=== PATIENT | male | born 1955 | race Caucasian/White ===

== ENCOUNTER 2019-06-27 10:05 | Emergency (ER) | payer MEDICARE, SELFPAY ==
[2019-06-27 10:34] VITALS: BMI 27.3
[2019-06-27 10:39] VITALS: BP 158/98; PULSE 100; RESP 20; TEMP 36.8; O2SAT 94
--- NOTE | 2019-06-27 10:41 | XRR_ITS ---
PROCEDURE INFORMATION: Exam: XR Chest, 2 Views Exam date and time: 06/27/2019 11:04 AM Age: 63 years old Clinical indication: Shortness of breath; Additional info: Shortness of breath, copd TECHNIQUE: Imaging protocol: XR of the chest Views: 2 views. COMPARISON: CR Chest 2 views* [id number] 07/09/2018 3:13 PM FINDINGS: Lungs: Multiple calcified granulomas are present in the left lung, as well as the right lower lobe. Chronic obstructive pulmonary disease is present. No focal consolidation or pneumonia is identified. Pleural space: Unremarkable. No pleural effusion. No pneumothorax. Heart/Mediastinum: Unremarkable. No cardiomegaly. Bones/joints: No acute abnormality XR/XR chest 2V* [id number] IMPRESSION: 1. No acute abnormality. 2. Chronic findings as discussed above.
[2019-06-27 11:14] LABS: Hematocrit 54.4 % (42.0-52.0); Hemoglobin 18.4 g/dL (11.7-16.6); Mean Corpuscular HGB Conc 33.8 g/dL (30.0-36.0); Mean Corpuscular Hemoglobin 30.8 pg (28.0-34.0); Mean Platelet Volume 10.9 fL (7.4-10.4); Platelet Count 181 10^3/cmm (130-400); Red Blood Count 5.98 10^6/uL (4.1-5.3); Red Cell Distribution Width 13.2 % (12.1-15.1); White Blood Count 14.3 10^3/uL (4.0-10.0)
[2019-06-27 11:29] LABS: Alanine Aminotransferase 37 U/L (0-41); Alkaline Phosphatase 78 IU/L (40-130); Anion Gap 19.5 (5-19); Aspartate Amino Transferase 16 U/L (0-40); Blood Urea Nitrogen 26 mg/dL (8-23); Calcium 10.2 mg/dL (8.5-10.5); Carbon Dioxide 25 mmol/L (22-29); Chloride 95 mmol/L (98-107); Globulin 2.5 g/dL (1.3-4.6); Glomerular Filtration Rate 67.2 mL/min (90-130); Glucose 223 mg/dL (74-106); Potassium 4.5 mmol/L (3.5-5.1); Sodium 135 mmol/L (136-145); Total Bilirubin 0.5 mg/dL (0.15-1.2); Total Protein 7.5 g/dL (6.6-8.7)
[2019-06-27 11:40] LABS: Absolute Segmented Neutrophil 8.8 10/cmm (1.6-7.1); Band Neutrophils Absolute 1.4 10^3/cmm (0.0-1.2); Lymphocytes 17 %; Monocytes Absolute 1.4 10^3/cmm (0.1-0.6); Platelet Estimate Normal (Normal); Segmented Neutrophils 62 %; Total Cells Counted 100 (0-100)
== END 2019-06-27 14:46 ==
PROVIDERS: Emergency Provider Family Medicine; Family Provider Internal Medicine; PCP Internal Medicine
DX: Z53.21 Procedure and treatment not carried out due to patient leaving prior to being seen by health care provider (principal)
CPT/HCPCS: 36415; 71046; 80053; 85007; 85027; 99281

== ENCOUNTER 2019-07-05 16:13 | Inpatient (IN) | payer MEDICARE, SELFPAY ==
[2019-07-05 16:17] VITALS: BP 133/94; PULSE 173; RESP 20; TEMP 37.1; O2SAT 93; BMI 27.3
--- NOTE | 2019-07-05 16:21 | ED_ITS ---
Entered by Mikki Javier, acting as scribe for Ehsan Penny MD, [facility] [place]PI - Chest Pain General: Chief Complaint: Chest Pain Stated Complaint: SOB Time Seen by Provider: 07/05/19 16:22 Source: patient Mode of arrival: ambulatory Limitations: no limitations History of Present Illness: HPI narrative: 63 yo Male presents to ED with complaint of chest pain. Pt states that about a week ago he was short of breath and wound up at [facility]. Pt states that when he went in he was in atrial fibrillation. Pt states that he doesn't normally have atrial fibrillation. Pt states that when he got out of the hospital he went back out on the road. 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 Pt states the second day he felt like normal. Pt states that he took his medication today and he got short of breath again and is feeling worse than when he went into the hospital the first time. Pt states that he is diabetic and when he was in the hospital before they gave him a lot of steroids and had his blood sugar in the 500s. complaint: chest pain Onset (ago): hour(s) Timing of current episode: episodic and still present Prior episodes: Yes Onset: during exertion Pain radiation: none Relieving factors: nothing Exacerbating factors: exertion Associated symptoms: Reports dyspnea; Deny abdominal pain, fever(s), nausea, palpitations or vomiting Treatment prior to arrival: none Review of Systems General: Reports: 10 or more systems reviewed and unremarkable except in HPI and below Const: Denies: fever, chills or body aches Eyes: Denies: change in vision, blurry vision or blind spots ENMT: Denies: throat pain, enlarged tonsils, painful swallowing, hoarseness, mouth pain or swelling of lips/tongue Card: Reports: chest pain, irregular heart rhythm and shortness of breath on exertion; Denies: palpitations, edema or swelling of feet/ankles Resp: Reports: shortness of breath GI: Denies: abdominal pain, nausea or vomiting : Denies: flank pain, painful urination, urinary frequency, urinary urgency or urinary hesitancy Musc: Denies: neck pain, back pain, extremity pain, extremity swelling or joint pain Skin/Breast: Denies: rash, itching or redness Neuro: Denies: headache, numbness in extremities or weakness in extremities Endo: Denies: excessive urination, excessive thirst or tired all the time PFSH ED PFSH: Statuses (acute, chronic, etc) shown below reflect problem list status as previously entered and may not be historically accurate Social History Smoking and tobacco status: former smoker Alcohol intake: never Substance/Drug Use: never Physical Exam Const: COMMON NORMALS: no apparent distress, average body habitus, oriented x3, no limitations, healthy appearing, alert and well nourished HENMT: COMMON NORMALS: normocephalic, head/scalp atraumatic and moist oral mucous membranes HEAD & SCALP: normocephalic and atraumatic Eye: COMMON NORMALS: PERRL, EOMs intact bilaterally, conjunctivae normal and no scleral icterus CONJUNCTIVA: Yes conjunctivae normal PUPIL: Yes PERRL Neck/C-Spine: COMMON NORMALS: full ROM, supple, no meningeal signs, no JVD and no carotid bruits Chest: COMMONS NORMALS: inspection of chest normal and palpation of chest normal Resp: COMMON NORMALS: normal respiratory effort, no retractions, no use of accessory muscles, clear to auscultation bilaterally and percussion normal AUSCULTATION: clear to auscultation bilaterally PERCUSSION: percussion normal Cardio: COMMON NORMALS: no JVD, S1 normal heart sound, S2 normal heart sound, no gallops, no clicks, no murmurs, no rub and peripheral pulses 2+ throughout RATE: tachycardic RHYTHM: abnormal rhythm irregularly irregular HEART SOUNDS: S1 normal and S2 normal PERIPHERAL PULSES: pulses 2+ throughout GI: COMMON NORMALS: normal to inspection, nondistended, normoactive bowel sounds, soft to palpation, non-tender, no hepatosplenomegaly, no masses and no bruits PALPATION: Yes soft and Yes no hepatosplenomegaly : COMMON NORMALS: Yes no CVA tenderness BLADDER/KIDNEY EXAM: Yes no CVA tenderness Back/Pelvis: COMMON NORMALS: no CVA tenderness Extremity: COMMON NORMALS: normal to inspection, full ROM, normal capillary refill, no calf tenderness and no pedal edema Neuro: COMMON NORMALS: oriented x3 SENSORIUM/ORIENTATION: Yes alert MENINGEAL SIGNS: Yes no meningeal signs Skin: COMMON NORMALS: no rashes or lesions noted, no wounds, skin turgor normal, no jaundice, no petechiae and no mottling GENERAL SKIN EXAM: no rashes or lesions noted and turgor normal Course Consultations: Consultation #1: , hospitalist. She kindly accepted patient to her service. Vital Signs: Vital signs: Vital Signs Temperature 98.7 F 07/05/19 16:17 Pulse Rate 94 07/05/19 19:08 Respiratory Rate 20 H 07/05/19 19:08 Blood Pressure 110/83 07/05/19 19:08 Pulse Oximetry 92 07/05/19 19:08 MDM - Chest Pain MDM Narrative: Medical decision making narrative: 63-year-old gentleman who presented to the emergency department with complaints of chest pain or shortness of breath. When he arrived he was in atrial fibrillation with rapid ventricular rate, heart rate was in the 170s to 180s on arrival and atrial fibrillation on EKG and on the monitor. He initially responded to a bolus of 25 mg of IV diltiazem after which heart rate briefly converted to sinus rhythm and heart rate dropped to between the 90s and low 100s. However this was short-lived and his heart rate gradually increased back into the 140s. He was therefore placed on a diltiazem drip and admitted to the cardiac stepdown unit for further evaluation and management. The patient was recently diagnosed with atrial fibrillation and was placed on metoprolol 50 mg twice daily for this. He is also on Eliquis 5 mg twice daily. Medical Records: Attestation: I reviewed the patient's medical records. Lab Data: Attestation: I reviewed the patient's lab results. Labs: Lab Results 07/05/19 Range/Units 16:27 WBC 14.3 H (4.0-10.0) 10^3/ uL RBC 5.57 H (4.1-5.3) 10^6/u L Hgb 18.1 H (11.7-16.6) g/dL Hct 51.9 (42.0-52.0) % MCV 93.2 (80-94) fL MCH 32.5 (28.0-34.0) pg MCHC 34.9 (30.0-36.0) g/dL RDW 13.1 (12.1-15.1) % Plt Count 212 (130-400) 10^3/c mm MPV 11.8 H (7.4-10.4) fL Neut % (Auto) 59.7 % Lymph % (Auto) 30.9 % Crane % (Auto) 7.3 % Eos % (Auto) 0.8 % Baso % (Auto) 0.3 % Neut # (Auto) 8.6 H (1.8-7.7) 10^3/u L Lymph # (Auto) 4.4 (0.8-4.8) 10^3/u L Crane # (Auto) 1.1 H (0.2-0.9) 10^3/u L Eos # (Auto) 0.1 (0.0-0.8) 10^3/u L Baso # (Auto) 0.0 (0.0-0.1) 10^3/u L Nucleated RBC % (a uto) 0 % Nucleated RBCs # 0.0 /100WBC Imaging Data^: CXR: Radiologist's impression: [place] [id number] XRay Report Signed Patient: Ralph Matta #: [id number] : 4Acc#:[id number] Age/Sex: 63 / MADM Date: 07/05/19 Loc: [facility]/Bed: Attending Dr: Ordering Provider/Ordering MD: Ehsan Penny MD, [facility] Date of Service: 07/05/19 Procedure(s): XR chest 1V portable [id number] Accession Number(s): [id number] Report Number: [id number] PROCEDURE INFORMATION: Exam: XR Chest, 1 View Exam date and time: 07/05/2019 5:06 PM Age: 63 years old Clinical indication: Shortness of breath; Patient HX: HX copd; Additional info: Chest pain and shortness of breath TECHNIQUE: Imaging protocol: XR of the chest Views: 1 view. COMPARISON: CR XR chest 2V* [id number] 06/27/2019 11:00 AM FINDINGS: Lungs: Nonspecific bibasilar consolidation is present, consistent with atelectasis, edema, or pneumonia. The lungs are hyperinflated compatible with COPD. Calcified granulomas are noted. Pleural space: Unremarkable. No pleural effusion. No pneumothorax. Heart/Mediastinum: Unremarkable. No cardiomegaly. Bones/joints: No acute abnormality. XR/XR chest 1V portable [id number] IMPRESSION: Nonspecific bibasilar consolidation is present, consistent with atelectasis, edema, or pneumonia. Dictated By:Ling Velazquez Signed By:Garrett Velazquezigned Date/Time:07/05/191802 DD/ 02 Discharge Plan Discharge Patient Disposition: Admitted As Inpatient Admit Provider: Abigail Goldsmith Clinical Impression: Atrial fibrillation Condition: Stable Interventions: ED Discharge Assessment Last Done: 07/05/19 19:08 Discharge Date/Time: 07/05/19 20:00 Coding Level of Care Code ED Quarry Manager for Chg Fwd Exam Problem Focused The documentation recorded by the Concepcion soares Carmen, accurately reflects the service I personally performed and the decisions made by Hemalatha perkins Adegoke I, MD, [facility] Jul 05, 2019 16:13
--- NOTE | 2019-07-05 16:45 | ECG_ITS ---
Measurements Intervals [place] Rate: 173 P: MT: 0 QRS: 67 QRSD: 93 T: 72 QT: 266 QTc: 452 ATRIAL FIBRILLATION WITH RAPID VENTRICULAR RESPONSE CRITICAL TEST RESULT Compared to ECG 07/09/2017 14:13:08 Sinus rhythm no longer present Incomplete right bundle-branch block no longer present Myocardial infarct finding no longer present Electronically Signed On 07-06-2019 16:20:37 PARTS PULLER by Minal Romero M.D. [id number]
--- NOTE | 2019-07-05 16:45 | XRR_ITS ---
PROCEDURE INFORMATION: Exam: XR Chest, 1 View Exam date and time: 07/05/2019 5:06 PM Age: 63 years old Clinical indication: Shortness of breath; Patient HX: HX copd; Additional info: Chest pain and shortness of breath TECHNIQUE: Imaging protocol: XR of the chest Views: 1 view. COMPARISON: CR XR chest 2V* [id number] 06/27/2019 11:00 AM FINDINGS: Lungs: Nonspecific bibasilar consolidation is present, consistent with atelectasis, edema, or pneumonia. The lungs are hyperinflated compatible with COPD. Calcified granulomas are noted. Pleural space: Unremarkable. No pleural effusion. No pneumothorax. Heart/Mediastinum: Unremarkable. No cardiomegaly. Bones/joints: No acute abnormality. XR/XR chest 1V portable [id number] IMPRESSION: Nonspecific bibasilar consolidation is present, consistent with atelectasis, edema, or pneumonia.
[2019-07-05 17:12] LABS: Basophils % 0.3 %; Eosinophils # 0.1 10^3/uL (0.0-0.8); Eosinophils % 0.8 %; Hematocrit 51.9 % (42.0-52.0); Hemoglobin 18.1 g/dL (11.7-16.6); Lymphocytes # 4.4 10^3/uL (0.8-4.8); Lymphocytes % 30.9 %; Mean Corpuscular HGB Conc 34.9 g/dL (30.0-36.0); Mean Corpuscular Hemoglobin 32.5 pg (28.0-34.0); Mean Corpuscular Volume 93.2 fL (80-94); Mean Platelet Volume 11.8 fL (7.4-10.4); Monocytes # 1.1 10^3/uL (0.2-0.9); Monocytes % 7.3 %; Neutrophils # 8.6 10^3/uL (1.8-7.7); Neutrophils % 59.7 %; Nucleated Red Blood Cells % 0 %; Platelet Count 212 10^3/cmm (130-400); Red Blood Count 5.57 10^6/uL (4.1-5.3); Red Cell Distribution Width 13.1 % (12.1-15.1); White Blood Count 14.3 10^3/uL (4.0-10.0)
[2019-07-05] MEDS: sodium chloride 0.9% 1,000 ML 999 ML IV (17:21)
[2019-07-05 17:26] VITALS: RESP 18
[2019-07-05] MEDS: morphine 4 mg/mL SDV 1 mL IVP (17:26)
--- NOTE | 2019-07-05 18:45 | ECG_ITS ---
Measurements Intervals [place] Rate: 80 P: 80 SD: 134 QRS: 73 QRSD: 95 T: 79 QT: 375 QTc: 435 SINUS RHYTHM WITH OCCASIONAL SUPRAVENTRICULAR PREMATURE COMPLEXES Compared to ECG 07/09/2017 14:13:08 Incomplete right bundle-branch block no longer present Myocardial infarct finding no longer present Electronically Signed On 07-06-2019 16:28:26 PIPE WRAPPING MACHINE OPERATOR by Minal Romero M.D. [id number]
[2019-07-05 18:54] LABS: Add Urine Microscopic? NO
--- NOTE | 2019-07-05 19:05 | P.HP_ITS ---
Providers/Chief Complaint Admitting Physician: Abigail Goldsmith MD Primary Care Provider: Aristides Smith MD Chief Complaint: AFIB W/RVR History of Present Illness Ralph Matta is a 63 year old male with a past medical history of hypertension, diabetes mellitus, COPD who presented to the ED today complaining of shortness of breath. Patient was just recently diagnosed about a week ago with new onset atrial fibrillation. He had gone to [facility] in [place] at the time for evaluation of shortness of breath and intermittent palpitations. There he was diagnosed to have atrial fibrillation and started on metoprolol 50 mg twice a day and also initiated on anticoagulation with Eliquis. He states work-up at the time had included an echocardiogram however he is unaware of the results of the study. He also had a CT of the head.Per history it does not appear like he had any neurological deficits. This was also reportedly normal according to him. He did not undergo any cardioversion. He was feeling asymptomatic since discharge up until yesterday evening when while cleaning his trailer he started to experience shortness of breath. Initially he thought he attributed this to h is known COPD, took some inhalers and did not think much about his symptoms. Then again today afternoon while cleaning his trailer he started to feel winded, said it was hard to catch his breath and felt palpitations. When he presented to the ER his heart rate was noted to be in 180s and A. fib with RVR. He received Cardizem 25 mg IV push which brought him back into sinus rhythm for about 30 minutes however thereafter he again started to go into A. fib with a heart rate between 1 40-1 50 and has now been started on a Cardizem drip. Heart rate now is ranging between 77 to 90 bpm. He has not had his troponin checked since arrival. He denies any complains of overt chest pain to me. He denies any other complaints such as nausea vomiting or diarrhea. His current list of medications include metoprolol 50 mg twice a day, Eliquis 5 mg twice a day, Flomax 0.4 mg daily, Invokana for diabetes control, doxycycline 100 mg twice a day and prednisone 40 mg once daily which was started recently at [facility] for COPD exacerbation, lisinopril 20 mg once daily. He states he has been compliant with all of his medications. 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 Review of labs shows an elevated white blood cell count of 14.3. I suspect this is secondary to steroids. I do not see a Weeks panel from today but from 123 his kidney function was with creatinine of 1.1. Hemoglobin is 18.1. Review of Systems General: Reports: 10 or more systems reviewed and unremarkable except in HPI and below Const: Denies: fever, chills or body aches Eyes: Denies: change in vision, blurry vision or photophobia ENMT: Reports: hoarseness; Denies: throat pain, enlarged tonsils, painful swallowing or nasal congestion Card: Reports: palpitations and shortness of breath on exertion; Denies: chest pain, irregular heart rhythm, edema, swelling of feet/ankles, lightheadedness, pre-syncope or shortness of breath when lying down Resp: Denies: shortness of breath, productive cough, non-productive cough, wheezing, stridor, pain on inspiration, change in phlegm color, coughing up blood or chest congestion GI: Denies: abdominal pain, nausea, vomiting, vomiting blood, coffee grounds in vomit, difficulty swallowing, heartburn/indigestion, diarrhea, constipation, cramping, change in stool character, blood in stool or black tarry stool : Denies: flank pain, painful urination, urinary frequency, urinary urgency, urinary hesitancy or blood in urine Musc: Denies: neck pain, back pain, extremity pain, joint swelling, joint warmth or deformity Neuro: Denies: headache, numbness in extremities, weakness in extremities, changes in sensation, difficulty walking, frequent falls, dizziness, vertigo, behavioral changes, slurred speech or seizure-like activity Psych: Denies: anxiety, depression, suicidal ideation or homicidal ideation Endo: Denies: excessive urination, excessive thirst, tired all the time, cold intolerance or hot flashes Rj/Lymph: Denies: easy bruising or easy bleeding Medications/Allergies Allergies Allergy/AdvReac Type Severity Reaction Status Date / Time No Known Allergies Allergy Verified 06/27/19 10:40 PFSH Acute PFSH: Statuses (acute, chronic, etc) shown below reflect problem list status as previously entered and may not be historically accurate Medical History (Updated 07/05/19 @ 19:15 by Abigail Goldsmith MD) Atrial fibrillation (Acute) COPD (chronic obstructive pulmonary disease) (Acute) Diabetes mellitus (Acute) Hypertension (Acute) Surgical History (Updated 07/05/19 @ 19:16 by Abigail Goldsmith MD) S/P colonoscopic polypectomy (Acute) Social History (Updated 07/05/19 @ 19:16 by Abigail Goldsmith MD) Smoking and tobacco status: former smoker Alcohol intake: never Substance/Drug Use: never Vitals/I&O/Wt Last Vital Signs Temp 98.7 F 07/05/19 16:17 Pulse 173 H 07/05/19 16:17 Resp 18 07/05/19 17:26 BP 133/94 07/05/19 16:17 Pulse Ox 93 07/05/19 16:17 Weight last 48 hrs Weight 83.915 kg Physical Exam Narrative: EXAM NARRATIVE: GEN: Awake, alert and oriented, no acute distress CVS: S1S2 N RS: CTA B/L Abd: Soft, nt , bs+, appears mildly distended however patient states that this is usual for him. Attributes it to a known hernia. DIAMOND MOUNTER: no focal neuro deficits EXT: No pedal edema or cyanosis. Data : 07/05/19 16:27 A&P Assessment and plan (1) Atrial fibrillation: Status: Acute Code(s): I48.91 - Unspecified atrial fibrillation (2) COPD (chronic obstructive pulmonary disease): Status: Acute Code(s): J44.9 - Chronic obstructive pulmonary disease, unspecified (3) Diabetes mellitus: Status: Acute Code(s): E11.9 - Type 2 diabetes mellitus without complications (4) Hypertension: Status: Acute Code(s): I10 - Essential (primary) hypertension Additional A&P Information Admit patient to [facility] Patient received 25 mg of IV push of Cardizem in the ED and has been started on Cardizem infusion. We will continue this for overnight and titrate as needed. Continue metoprolol 50 mg twice a day. We will titrate up on the dose of metoprolol as tolerated by his blood pressure. He is currently on anticoagulation with Eliquis 5 mg twice a day. No signs of bleeding. Hemoglobin is stable. We will continue Eliquis for now. Continue lisinopril for hypertension however I will reduce this dose to 10 mg daily to give me more room to go up on metoprolol. His shortness of breath only was experienced during.'s of rapid heart rate. Since heart rate has settled down between 70-90, he denies any current shortness of breath. Lungs are clear to examination. We do not have an echocardiogram since A. fib has started. He states one was recently performed at [facility] in [place] however we do not have the results of the study. We will try to obtain on Monday. Check troponins which currently remain pending. He does not clinically seem to be experiencing COPD exacerbation therefore I will not continue his steroids or doxycycline for now. Moreover he has completed an adequate course as outpatient. We will use DuoNeb inhalation every 4 hour as needed For diabetes, will use moderate insulin sliding scale for now. He states that recently since discharge and being on prednisone his blood sugar has been running in the 300s. We will check an A1c tomorrow morning DVT prophylaxis: He is currently on prophylaxis with Eliquis which will cover. CODE STATUS is full code Attestations Medical Necessity Statement*: Anticipate greater than 2 midnight admission for control of atrial fibrillation with rapid ventricular response and optimization of medication. Coding Level of Care Code Acute Waiter/Waitress First Class for Kahlil Ny Diagnoses Atrial fibrillation I48.91 COPD (chronic obstructive pulmonary disease) J44.9 Diabetes mellitus E11.9 Hypertension I10
[2019-07-05 19:08] VITALS: BP 110/83; PULSE 94; RESP 20; O2SAT 92
[2019-07-05 19:32] LABS: Bilirubin Urine Neg (NEGATIVE); Blood Urine Neg (Negative); Glucose Urine UA 4+ (Normal); Ketones Urine Negative (Negative); Leukocyte Esterase Urine Negative (Negative); Nitrate Urine Negative (Negative); Protein Urine Neg (Negative); Urine Appearance Clear (CLEAR); Urine Color Straw (Yellow); Urobilinogen Urine Norm (Negative); pH Urine 5 (5-7)
[2019-07-05 19:42] LABS: Amphetamines Screen Urine Negative (Negative); Barbiturates Screen Urine Negative (Negative); Benzodiazepines Screen Urine Negative (Negative); Cocaine Screen Urine Negative (Negative); Opiate Screen Urine Negative (Negative); PCP Screen Urine Negative (Negative); THC Screen Urine Negative (Negative)
[2019-07-05 20:02] LABS: Albumin Level 3.6 g/dL (3.5-5.2); Blood Urea Nitrogen 40 mg/dL (8-23); Calcium 9.1 mg/dL (8.5-10.5); Carbon Dioxide 18 mmol/L (22-29); Chloride 97 mmol/L (98-107); Globulin 2.9 g/dL (1.3-4.6); Glomerular Filtration Rate 67.2 mL/min (90-130); Glucose 470 mg/dL (74-106); NT Pro B Type Natriuretic Pept 668 pg/mL (0-125); Sodium 130 mmol/L (136-145); Total Bilirubin 0.2 mg/dL (0.15-1.2); Total Protein 6.5 g/dL (6.6-8.7)
[2019-07-05 20:03] LABS: Anion Gap 19.7 (5-19)
[2019-07-05 20:06] LABS: Potassium 4.7 mmol/L (3.5-5.1)
[2019-07-05 20:07] LABS: Alkaline Phosphatase 105 IU/L (40-130)
[2019-07-05 20:13] LABS: Alanine Aminotransferase < 5 U/L (0-41); Aspartate Amino Transferase 5 U/L (0-40)
[2019-07-05 20:32] LABS: Troponin(5th) Baseline 16 ng/mL (0-15)
[2019-07-05 20:51] LABS: Glucose Point of Care 355 mg/dL (70-110)
[2019-07-05 21:46] VITALS: O2SAT 94
[2019-07-05 21:57] LABS: Troponin 5 2HR 17.59 ng/mL (0-15); Troponin 5 2HR Delta 1.59 ABS# (0-10)
[2019-07-05 21:59] LABS: Thyroid Stimulating Hormone 1.23 uIU/mL (0.27-4.20)
[2019-07-05 22:18] VITALS: BP 111/78; PULSE 84; RESP 16; TEMP 36.7; O2SAT 91
--- NOTE | 2019-07-05 22:45 | ECG_ITS ---
Measurements Intervals [place] Rate: 78 P: 72 NE: 134 QRS: 37 QRSD: 90 T: 74 QT: 361 QTc: 413 SINUS RHYTHM POSSIBLE LEFT ATRIAL ENLARGEMENT [-0.1mV P WAVE IN V1/V2] Compared to ECG 07/09/2017 14:13:08 Incomplete right bundle-branch block no longer present Myocardial infarct finding no longer present Electronically Signed On 07-06-2019 16:26:20 CRISIS WORKER by Minal Romero M.D. [id number]
--- NOTE | 2019-07-05 22:47 | PC.NURSE ---
Current heart rate is 82 and normal sinus rhythm. Cardizem gtt paused for now. Instructed patient on the use and side effects of cardizem. Patient verbalized complete understanding.
[2019-07-05 23:45] VITALS: BP 103/52; PULSE 79; RESP 19; TEMP 36.9; O2SAT 90
[2019-07-06] VITALS (9 sets, daily range): BP systolic 121–141; BP diastolic 73–86; PULSE 75–110; RESP 16–25; TEMP 36.6–37; O2SAT 89–96
--- NOTE | 2019-07-06 03:14 | PC.NURSE ---
Patient continues to maintain NSR with a rate mid 80s to low 90s. Cardizem gtt remains off at this time.
--- NOTE | 2019-07-06 03:20 | PC.NURSE ---
Patient SpO2 currently at 88-90%. Patient states, I have had COPD for a while now. I do not use oxygen at home. Patient denies any increased work of breathing. No distress observed. Patient refusing to have oxygen at this time stating I don't feel like I need it right now.
[2019-07-06 05:10] LABS: Basophils % 0.3 %; Eosinophils # 0.2 10^3/uL (0.0-0.8); Eosinophils % 1.7 %; Hematocrit 43.2 % (42.0-52.0); Hemoglobin 14.8 g/dL (11.7-16.6); Lymphocytes # 2.7 10^3/uL (0.8-4.8); Lymphocytes % 29.3 %; Mean Corpuscular HGB Conc 34.3 g/dL (30.0-36.0); Mean Corpuscular Hemoglobin 30.6 pg (28.0-34.0); Mean Corpuscular Volume 89.3 fL (80-94); Mean Platelet Volume 11.5 fL (7.4-10.4); Monocytes # 0.7 10^3/uL (0.2-0.9); Neutrophils # 5.7 10^3/uL (1.8-7.7); Neutrophils % 60.6 %; Nucleated Red Blood Cells % 0 %; Platelet Count 149 10^3/cmm (130-400); Red Blood Count 4.84 10^6/uL (4.1-5.3); Red Cell Distribution Width 12.8 % (12.1-15.1); White Blood Count 9.3 10^3/uL (4.0-10.0)
[2019-07-06 05:49] LABS: Anion Gap 18.2 (5-19); Blood Urea Nitrogen 37 mg/dL (8-23); Calcium 8.8 mg/dL (8.5-10.5); Carbon Dioxide 21 mmol/L (22-29); Chloride 97 mmol/L (98-107); Glucose 353 mg/dL (74-106); Osmolality Calculated 286 mOsm/kg (285-295); Potassium 4.2 mmol/L (3.5-5.1); Sodium 132 mmol/L (136-145)
[2019-07-06 05:50] LABS: Cholesterol 273 mg/dL (0-200); HDL Cholesterol 15 mg/dL (60-100)
--- NOTE | 2019-07-06 05:50 | PC.NURSE ---
Patient remains in NSR continuing with rates in the low 80s. Patient denies discomforts at this time. No distress observed. Cardizem gtt remains off at this time.
[2019-07-06 06:02] LABS: Estmated Average Glucose 203; Hemoglobin A1C 8.7 % (4.0-6.0)
[2019-07-06 06:04] LABS: Triglycerides 2121 mg/dL (0-150)
[2019-07-06 06:19] LABS: LDL Cholesterol Direct 34 mg/dL (0-100)
[2019-07-06 07:44] LABS: Glucose Point of Care 334 mg/dL (70-110)
[2019-07-06] MEDS: metoprolol tartrate 50 mg Tablet 75 MG PO ×2 (08:03→18:47)
[2019-07-06] MEDS: apixaban 5 mg Tablet PO ×2 (08:04→18:48)
[2019-07-06] MEDS: lisinopril 10 mg Tablet PO (08:04)
[2019-07-06] MEDS: ipratropium-albuterol 3 mL Neb INHALATION ×3 (09:11→20:34)
--- NOTE | 2019-07-06 09:28 | P.PN_ITS ---
Subjective Subjective: Interval history: Patient converted to sinus rhythm. Cardizem drip was turned off at 10:45 PM overnight. His O2 sats were between 88 to 90%, he refused to wear supplemental O2 as he attributed this to his COPD. This morning his lipid profile has returned grossly abnormal with triglyceride of over 2000 HDL less than 15. Review of medication shows he is not currently on a statin. His A1c also shows poor glycemic control with numbers of 8.7. Leukocytosis is resolved today. Fingersticks remain elevated between 3 53-4 70. Troponins are negative with unremarkable stool in 6-hour delta's. Medications: Reviewed: Yes Vitals/I&O/Wt Last Vital Signs Temp 97.8 F 07/06/19 07:17 Pulse 75 07/06/19 09:12 Resp 16 07/06/19 09:12 BP 141/77 07/06/19 07:17 Pulse Ox 90 07/06/19 09:12 07/05/19 07/06/19 07/06/19 22:59 06:59 14:59 Intake Total 28.417 / 28.417 480 / 508.417 240 / 240 Balance 28.417 / 28.417 480 / 508.417 240 / 240 Weight last 48 hrs Weight 81.148 kg Weight 83.915 kg Physical Exam 2 Narrative: EXAM NARRATIVE: GEN: Awake, alert and oriented, no acute distress CVS: S1S2 N RS: CTA B/L except crackles over RUL Abd: Soft, nt/nd , bs+ REWIND OPERATOR: no focal neuro deficits Data : 07/06/19 04:16 07/06/19 04:16 A&P Assessment and plan (1) COPD (chronic obstructive pulmonary disease): Status: Acute Code(s): J44.9 - Chronic obstructive pulmonary disease, unspecified (2) Atrial fibrillation: Status: Acute Qualifiers: Atrial fibrillation type: unspecified Qualified Code(s): I48.91 - Unspecified atrial fibrillation Code(s): I48.91 - Unspecified atrial fibrillation (3) Diabetes mellitus: Status: Acute Code(s): E11.9 - Type 2 diabetes mellitus without complications (4) Hypertension: Status: Acute Code(s): I10 - Essential (primary) hypertension (5) Hyperlipidemia: Status: Acute Code(s): E78.5 - Hyperlipidemia, unspecified (6) Hypertriglyceridemia: Status: Acute Code(s): E78.1 - Pure hyperglyceridemia Additional A&P Information Continue monitoring in CSU. Cardizem infusion has been off since 10:45 PM overnight. Patient remains in sinus rhythm with heart rate between 75-87. Metoprolol dose has been increased to 75 mg twice a day from 50 mg twice a day. We will continue the same. He is currently on anticoagulation with Eliquis 5 mg twice a day. Continue lisinopril for hypertension. Blood pressure through the day and likely go back up on dose of lisinopril to 20 mg daily if blood pressure permits. Shortness of breath is resolved. BNP is elevated at around 600. Will use 20 mg of IV Lasix. O2 sats is between 88 to 92% however this may be consistent with her known COPD. He does not wear home O2. We will get an home O2 eval prior to discharge. We do not have an echocardiogram since A. fib has started. He states one was recently performed at [facility] in [place] however we do not have the results of the study. Serial troponins are negative and unremarkable Deltas. Lipid panel this a.m. grossly abnormal with triglyceride level greater than 2000. Start high intensity statin Atorvastatin 80mg qd. We will use DuoNeb inhalation every 4 hour as needed for COPD. For diabetes, suboptimal control over the past few months. For now we will change to aggressive sliding scale insulin. DVT prophylaxis: He is currently on prophylaxis with Eliquis which will cover. CODE STATUS is full code Attestations Medical Necessity Statement*: Admitted for management of atrial fibrillation, today is currently controlled. Fingersticks ranging up to 470 noted to be monitored with aggressive scale insulin. Coding Level of Care Code Acute Automotive Fuel Systems Converter for [facility] Fwd Diagnoses COPD (chronic obstructive pulmonary disease) J44.9 Atrial fibrillation I48.91 Atrial fibrillation type: unspecified Diabetes mellitus E11.9 Hypertension I10 Hyperlipidemia E78.5 Hypertriglyceridemia E78.1
--- NOTE | 2019-07-06 09:37 | USCV_ITS ---
Ralph Matta Age: 63 Gender: M : 1955 Exam Date: 07/06/2019 13:51 Ordering Phys: Abigail Goldsmith MD Technologist: Cherelle Paredes [place] [facility] [place]: New onset atrial fibrillation BP: 127 / 80 HR: 82 Rhythm: Sinus Technical Quality: Technically difficult study MEASUREMENTS (Male / Female) Normal Values 2D ECHO LV Diastolic Diameter PLAX 4.9 cm 4.2 - 5.9 / 3.9 - 5.3 cm LV Systolic Diameter PLAX 3.5 cm LV Chamber Size 4.4 cm IVS Diastolic Thickness 0.8 cm 0.6 - 1.0 / 0.6 - 0.9 cm IVS Systolic Thickness 1.2 cm LVPW Diastolic Thickness 1.2 cm 0.6 - 1.0 / 0.6 - 0.9 cm LVPW Systolic Thickness 1.4 cm RV Chamber Size 2.3 cm LVOT Diameter 2.2 cm LV Ejection Fraction 2D Teich 54.8 % LV Ejection Fraction MOD 2C 47.2 % LV Ejection Fraction 2C AL 45.0 % LA Diameter 4.3 cm LA Width 2.8 cm LA Height 3.7 cm RA Width 2.9 cm RA Height 4.1 cm Aorta at Sinotubular Diameter 2.7 cm M-MODE LV Diastolic Diameter MM 5.6 cm 4.2 - 5.9 / 3.9 - 5.3 cm LV Systolic Diameter MM 3.8 cm LV Ejection Fraction MM Teich 59.1 % IVS Diastolic Thickness MM 1.2 cm 0.6 - 1.0 / 0.6 - 0.9 cm IVS Systolic Thickness MM 1.7 cm LVPW Diastolic Thickness MM 1.2 cm 0.6 - 1.0 / 0.6 - 0.9 cm LVPW Systolic Thickness MM 1.9 cm RV Diastolic Diameter MM 0.9 cm Aortic Annulus Diameter 3.3 cm LA Ao Ratio MM 1.3 MV E Point Septal Separation 0.9 cm DOPPLER AV Peak Velocity 113.0 cm/s LVOT Peak Velocity 85.0 cm/s AV Area Cont Eq vti 2.8 cm squared AV Area Cont Eq pk 2.8 cm squared MV Area PHT 5.4 cm squared Mitral E to A Ratio 0.5 MV E' Velocity 6.0 cm/s Mitral E to MV E' Ratio 9.8 Mitral E to LV E' Lateral Ratio 9.3 Mitral E to LV E' Septal Ratio 10.3 TV Peak E Velocity 36.0 cm/s Right Atrial Pressure 3.0 mmHg PV Peak Velocity 63.0 cm/s RV Acceleration Time 0.1 s RV Ejection Time 0.2 s RV AcT/ET 0.4 FINDINGS Left Ventricle Normal left ventricular size and systolic function, EF 55 %. No regional wall motion abnormalities. Grade I/IV diastolic dysfunction (abnormal relaxation filling pattern), normal to mildly elevated filling pressures. Right Ventricle Normal right ventricular size and systolic function. Right Atrium The right atrium is normal in size. Left Atrium The left atrium is normal in size. Mitral Valve No gross abnormalities noted Aortic Valve Thickened aortic valve. Tricuspid Valve No gross abnormalities noted Pulmonic Valve Pulmonic valve not well visualized. Pericardium Normal pericardium without effusion. Aorta Normal ascending aorta dimension. CONCLUSIONS Normal left ventricular size and systolic function, EF 55 %. No regional wall motion abnormalities. Grade I/IV diastolic dysfunction (abnormal relaxation filling pattern), normal to mildly elevated filling pressures. Thickened aortic valve. No significant stenotic or regurgitant lesions Technically difficult study because of the poor ultrasonic window. Dr Minal Romero MD FACC (Electronically Signed) Final Date: 06 July 2019 17:17 SKY
[2019-07-06 12:00] LABS: Glucose Point of Care 332 mg/dL (70-110)
[2019-07-06] MEDS: FUROsemide 10 mg/mL SDV 2mL 20 MG IVP (13:01)
--- NOTE | 2019-07-06 15:21 | PC.CHAP ---
Pastoral Care Encounter/Spiritual Assessment Type of Contact [] Declined fire patroller visit [] Patient/Family/Request visit [] Outpatient visit [] Follow-up visit [] Physician referral [] Code/Alert [x] Routine visit [] Staff referral [] Actively dying [] Patient sleeping [] Family support [] [] Out of room [] Palliative care [] [] Receiving care in room [] Pre-surgical visit [] Trauma [] Long length of stay [] ICU visit [] Other: Relational/Emotional Strength [] Patient feels connected with others/family/visitors/staff [] Distress [] Loneliness/isolation [] Abandonment Spirituality of Patient [x] Person of Mary Kay [] Attends Latter Day of their Mary Kay [] Believes in Prayer [] Reads Bible or Holiness materials [x] There are Spiritual issues to be addressed Pile Fabric Knitter Interventions [] Prayer [] Active listening [] Non-anxious presence [x] Spiritual/emotional support [] Crisis/trauma care [] Spiritual counseling [] Bereavement support [] Provided bereavement packet [] Provided Bible/devotional materials [] Provided toy/stuffed animal, coloring book to patient or family member [] Provided Communion [] Anointing/[place] [] Salvation [] Completed spiritual assessment [] Other: Impact on Illness or Injury [] Angry [x] Fearful [x] Anxious [] Often cries [] Exhaustion [x] Unable to work [] Unable to attend restorationism [] Unable to walk/stand [] Unable to read [] Unable to drive [] Unable to eat/drink [x] Unable to sleep [] Unable to be with family [] Patient intubated [] Other: Summary Time spent with patient
[2019-07-06 17:48] LABS: Magnesium 2.5 mg/dL (1.7-2.3)
[2019-07-06 18:34] LABS: Glucose Point of Care 424 mg/dL (70-110)
[2019-07-06] MEDS: cetirizine 10 mg Tablet PO (19:48)
[2019-07-06 21:39] LABS: Glucose Point of Care 271 mg/dL (70-110)
[2019-07-06] MEDS: trazodone 50 mg Tablet 25 MG PO (21:52)
[2019-07-06] MEDS: atorvastatin 40 mg Tablet 80 MG PO (21:55)
[2019-07-07] VITALS (10 sets, daily range): BP systolic 94–136; BP diastolic 51–96; PULSE 66–94; RESP 16–23; TEMP 36.6–36.8; O2SAT 88–94; BMI 25.9
[2019-07-07 04:12] LABS: Basophils # 0.1 10^3/uL (0.0-0.1); Basophils % 0.4 %; Eosinophils # 0.2 10^3/uL (0.0-0.8); Eosinophils % 1.8 %; Hematocrit 50.9 % (42.0-52.0); Hemoglobin 17.1 g/dL (11.7-16.6); Lymphocytes # 3.3 10^3/uL (0.8-4.8); Lymphocytes % 25.6 %; Mean Corpuscular HGB Conc 33.6 g/dL (30.0-36.0); Mean Corpuscular Hemoglobin 30.8 pg (28.0-34.0); Mean Corpuscular Volume 91.5 fL (80-94); Mean Platelet Volume 11.5 fL (7.4-10.4); Monocytes # 1.1 10^3/uL (0.2-0.9); Monocytes % 8.2 %; Neutrophils # 8.1 10^3/uL (1.8-7.7); Neutrophils % 62.5 %; Nucleated Red Blood Cells % 0 %; Platelet Count 175 10^3/cmm (130-400); Red Blood Count 5.56 10^6/uL (4.1-5.3); Red Cell Distribution Width 12.9 % (12.1-15.1)
[2019-07-07 04:15] LABS: Alanine Aminotransferase 28 U/L (0-41); Albumin Level 3.7 g/dL (3.5-5.2); Alkaline Phosphatase 64 IU/L (40-130); Anion Gap 18.1 (5-19); Aspartate Amino Transferase 13 U/L (0-40); Blood Urea Nitrogen 33 mg/dL (8-23); Calcium 9.5 mg/dL (8.5-10.5); Carbon Dioxide 23 mmol/L (22-29); Chloride 98 mmol/L (98-107); Globulin 3.4 g/dL (1.3-4.6); Glomerular Filtration Rate 67.2 mL/min (90-130); Glucose 193 mg/dL (74-106); Potassium 4.1 mmol/L (3.5-5.1); Sodium 135 mmol/L (136-145); Total Bilirubin 0.5 mg/dL (0.15-1.2); Total Protein 7.1 g/dL (6.6-8.7)
[2019-07-07 08:01] LABS: Glucose Point of Care 224 mg/dL (70-110)
[2019-07-07] MEDS: metoprolol tartrate 50 mg Tablet 75 MG PO ×2 (08:49→17:38)
[2019-07-07] MEDS: apixaban 5 mg Tablet PO ×2 (08:49→17:38)
[2019-07-07] MEDS: lisinopril 10 mg Tablet PO (08:49)
[2019-07-07] MEDS: cetirizine 10 mg Tablet PO (08:49)
[2019-07-07 10:49] LABS: Glucose Point of Care 221 mg/dL (70-110)
--- NOTE | 2019-07-07 12:06 | PC.CHAP ---
Pastoral Care Encounter/Spiritual Assessment Type of Contact [] Declined vehicle leasing and rental manager visit [] Patient/Family/Request visit [] Outpatient visit [] Follow-up visit [] Physician referral [] Code/Alert [x] Routine visit [] Staff referral [] Actively dying [] Patient sleeping [] Family support [] [] Out of room [] Palliative care [] [] Receiving care in room [] Pre-surgical visit [] Trauma [] Long length of stay [] ICU visit [] Other: Relational/Emotional Strength [] Patient feels connected with others/family/visitors/staff [] Distress [] Loneliness/isolation [] Abandonment Spirituality of Patient [] Person of Mary Kay [] Attends Evangelical of their Mary Kay [x] Believes in Prayer [] Reads Bible or Jehovah'S Witness materials [] There are Spiritual issues to be addressed Cabinetmaker Helper Interventions [x] Prayer [x] Active listening [x] Non-anxious presence [x] Spiritual/emotional support [] Crisis/trauma care [] Spiritual counseling [] Bereavement support [] Provided bereavement packet [] Provided Bible/devotional materials [] Provided toy/stuffed animal, coloring book to patient or family member [] Provided Communion [] Anointing/[place] [] Salvation [x] Completed spiritual assessment [] Other: Impact on Illness or Injury [] Angry [] Fearful [] Anxious [] Often cries [] Exhaustion [] Unable to work [] Unable to attend cheondoism [] Unable to walk/stand [] Unable to read [] Unable to drive [] Unable to eat/drink [] Unable to sleep [] Unable to be with family [] Patient intubated [] Other: Summary pt. said he was ready to go home, he was hungry. Time spent with patient 10 min.
[2019-07-07 15:48] LABS: Glucose Point of Care 253 mg/dL (70-110)
--- NOTE | 2019-07-07 18:33 | P.PN_ITS ---
Subjective Subjective: Interval history: Patient reports getting out of breath with minimal activity. He is currently in normal sinus rhythm but tachycardic with heart rate in the 100s to 110s. He denies chest pain Even with exertion. He reports recently having stress test without significant findings. He reportsAt times rattling cough but unable to bring it up. Reports that cough started a pproximately one week ago when he was at [facility] for another episode of atrial fibrillation. He was started that timeOn Eliquis. He also was started on Trilogy machine with increasing respiratory medications.He denies lower extremity swelling. His x-ray Showed bibasal infiltrates suggestive of p neumonia. Medications: Reviewed: Yes Vitals/I&O/Wt Last Vital Signs Temp 98.2 F 07/07/19 16:00 Pulse 92 07/07/19 16:00 Resp 16 07/07/19 16:00 BP 105/81 07/07/19 16:00 Pulse Ox 91 07/07/19 16:00 07/07/19 07/07/19 07/07/19 06:59 14:59 22:59 Intake Total 400 / 1120 360 / 360 240 / 600 Output Total 200 / 200 Balance 400 / 1120 360 / 360 40 / 400 Weight last 48 hrs Weight 79.605 kg Weight 81.148 kg Physical Exam Const: COMMON NORMALS: oriented x3 Resp: OTHER: Minimal bibasilar rhonchi with overall decreased air movement but no wheezing. Cardio: COMMON NORMALS: regular rate, regular rhythm and S2 normal heart sound RATE: regular rate RHYTHM: regular rhythm HEART SOUNDS: S2 normal OTHER: No lower extremity edema bilaterally. GI: COMMON NORMALS: normal to inspection, nondistended, normoactive bowel sounds, soft to palpation and non-tender PALPATION: Yes soft Neuro: COMMON NORMALS: oriented x3 and no focal motor deficits Data : 07/07/19 03:20 07/07/19 03:20 A&P Assessment and plan (1) COPD (chronic obstructive pulmonary disease): Currently not in exacerbation. Status: Acute Code(s): J44.9 - Chronic obstructive pulmonary disease, unspecified (2) Atrial fibrillation: Converted back to normal sinus rhythm. Status: Acute Qualifiers: Atrial fibrillation type: unspecified Qualified Code(s): I48.91 - Unspecified atrial fibrillation Code(s): I48.91 - Unspecified atrial fibrillation (3) Diabetes mellitus: Patient does not want to initiate insulin. He is currently on Invokana at home Status: Acute Code(s): E11.9 - Type 2 diabetes mellitus without complications (4) Hypertension: Status: Acute Code(s): I10 - Essential (primary) hypertension (5) Hyperlipidemia: Status: Acute Code(s): E78.5 - Hyperlipidemia, unspecified (6) Hypertriglyceridemia: Status: Acute Code(s): E78.1 - Pure hyperglyceridemia Additional A&P Information Continue monitoring in CSU. I will go ahead and change patient's metoprolol to Cardizem given his severe underlying lung disease. Patient reports that at times he wheezes at night. Shortness of breath is resolved. BNP is elevated at around 600. Will use 20 mg of IV Lasix. O2 sats is between 88 to 92% however this may be consistent with her known COPD. He does not wear home O2. We will get an home O2 eval prior to discharge. We do not have an echocardiogram since A. fib has started. He states one was recently performed at [facility] in [place] however we do not have the results of the study. Serial troponins are negative and unremarkable Deltas. Lipid panel this a.m. grossly abnormal with triglyceride level greater than 2000. Start high intensity statin Atorvastatin 80mg qd. We will use DuoNeb inhalation every 4 hour as needed for COPD. For diabetes, suboptimal control over the past few months. For now we will change to aggressive sliding scale insulin. Insomnia. Start patient on trazodone as patient reports that it worked yesterday and he was able to sleep 2-3 hours. Left T2-T3 level paravertebral soft tissue mass. Recently was evaluated at [facility] with MRI as per patient. Acute bronchitis with Bibasilar community-acquired pneumonia. Most likely present on admission. Start patient on Levaquin. DVT prophylaxis: He is currently on prophylaxis with Eliquis which will cover. CODE STATUS is full code Attestations Medical Necessity Statement*: Patient was atrial fibrillation rapid ventricular response requires close inpatient monitoring and treatment until medications are appropriately adjusted. Time Spent in Patient Care: Greater than 35 minutes Coding Level of Care Code Acute Writing Center Director for [facility] Fwd Diagnoses COPD (chronic obstructive pulmonary disease) J44.9 Atrial fibrillation I48.91 Atrial fibrillation type: unspecified Diabetes mellitus E11.9 Hypertension I10 Hyperlipidemia E78.5 Hypertriglyceridemia E78.1
[2019-07-07] MEDS: ipratropium-albuterol 3 mL Neb INHALATION (20:32)
[2019-07-07 21:00] LABS: Glucose Point of Care 320 mg/dL (70-110)
[2019-07-07] MEDS: atorvastatin 40 mg Tablet 80 MG PO (21:02)
[2019-07-07] MEDS: trazodone 50 mg Tablet PO (21:02)
[2019-07-07] MEDS: dilTIAZem 60 mg Tablet PO (21:02)
[2019-07-07] MEDS: levofloxacin-dextrose 5 % 750 MG/150 ML PREMIX 150 MG IV (21:06)
[2019-07-07] MEDS: acetaminophen 325 mg Tablet 650 MG PO (21:06)
--- NOTE | 2019-07-07 21:17 | PC.NURSE ---
New IV stated on left wrist with 20 gauge on first attempt. Patient tolerated well. Dressing applied.
[2019-07-08] VITALS (11 sets, daily range): BP systolic 99–126; BP diastolic 59–90; PULSE 68–160; RESP 17–21; TEMP 36.7–36.9; O2SAT 87–95
[2019-07-08] MEDS: dilTIAZem 60 mg Tablet PO ×4 (03:18→21:02)
[2019-07-08 07:04] LABS: Glucose Point of Care 257 mg/dL (70-110)
[2019-07-08] MEDS: lisinopril 10 mg Tablet PO (08:02)
[2019-07-08] MEDS: apixaban 5 mg Tablet PO ×2 (08:02→17:37)
[2019-07-08] MEDS: cetirizine 10 mg Tablet PO (08:02)
--- NOTE | 2019-07-08 08:10 | PC.NURSE ---
reinforcement on diet Pt stated he had a roast beef sandwich last night. did not eat the bread per report. He was telling me he is excited to go home to eat real food. I asked him what kind of food? He told me that his friend is making sausages. Educated him regarding his uncontrolled blood sugar level. He told me, that is going to be tough. Educated him on the complications of diabetes and importance of watchful diet.
--- NOTE | 2019-07-08 08:16 | PC.NURSE ---
Pt reported he had a Hx of Hep C and was taking a pill for it.
[2019-07-08 11:05] LABS: Glucose Point of Care 278 mg/dL (70-110)
--- NOTE | 2019-07-08 12:27 | PC.SOCIAL ---
Pg 2 of IMM Pg 2 of IMM was explained to and signed by patient, copy was provided, and form placed in chart. He verbalized understanding and had no questions.
--- NOTE | 2019-07-08 13:02 | PC.NURSE ---
Ambulating down hallways HR on tele box shows SR/ST rate in 90s to 98s.
[2019-07-08] MEDS: ipratropium-albuterol 3 mL Neb INHALATION ×2 (14:47→20:03)
--- NOTE | 2019-07-08 14:57 | ECG_ITS ---
Measurements Intervals [place] Rate: 106 P: 79 DC: 133 QRS: 66 QRSD: 102 T: 67 QT: 348 QTc: 462 SINUS TACHYCARDIA WITH FREQUENT SUPRAVENTRICULAR PREMATURE COMPLEXES POSSIBLE LEFT ATRIAL ENLARGEMENT [-0.1mV P WAVE IN V1/V2] POSSIBLE ANTERIOR MYOCARDIAL INFARCTION [30 ms Q WAVE IN V3/V4, OR R < 0.2 mV IN V4], OF INDETERMINATE AGE Compared to ECG 07/05/2019 22:49:06 Myocardial infarct finding now present Sinus rhythm no longer present Electronically Signed On 07-08-2019 21:02:32 BROKERAGE CLERK by Minal Romero M.D. [email or web address]
[2019-07-08 15:32] LABS: Basophils # 0.1 10^3/uL (0.0-0.1); Basophils % 0.4 %; Eosinophils # 0.2 10^3/uL (0.0-0.8); Eosinophils % 1.2 %; Hematocrit 54.6 % (42.0-52.0); Hemoglobin 18.1 g/dL (11.7-16.6); Lymphocytes # 3.8 10^3/uL (0.8-4.8); Lymphocytes % 24.9 %; Mean Corpuscular HGB Conc 33.2 g/dL (30.0-36.0); Mean Corpuscular Volume 93.7 fL (80-94); Mean Platelet Volume 11.4 fL (7.4-10.4); Monocytes # 1.4 10^3/uL (0.2-0.9); Monocytes % 8.9 %; Neutrophils # 9.6 10^3/uL (1.8-7.7); Neutrophils % 63.2 %; Nucleated Red Blood Cells % 0 %; Platelet Count 194 10^3/cmm (130-400); Red Blood Count 5.83 10^6/uL (4.1-5.3); Red Cell Distribution Width 13.2 % (12.1-15.1); White Blood Count 15.2 10^3/uL (4.0-10.0)
[2019-07-08 15:50] LABS: Alanine Aminotransferase 27 U/L (0-41); Albumin Level 4.2 g/dL (3.5-5.2); Alkaline Phosphatase 82 IU/L (40-130); Anion Gap 17.6 (5-19); Aspartate Amino Transferase 16 U/L (0-40); Blood Urea Nitrogen 38 mg/dL (8-23); Carbon Dioxide 20 mmol/L (22-29); Chloride 96 mmol/L (98-107); Globulin 3.4 g/dL (1.3-4.6); Glomerular Filtration Rate 55.4 mL/min (90-130); Glucose 294 mg/dL (74-106); Potassium 4.6 mmol/L (3.5-5.1); Sodium 129 mmol/L (136-145); Total Bilirubin 0.4 mg/dL (0.15-1.2); Total Protein 7.6 g/dL (6.6-8.7)
--- NOTE | 2019-07-08 16:28 | PM.PN ---
Subjective Subjective: Interval history: Patient reports feeling better whole day. Reports that he was in the bathroom straining when his heart rate increased up in 150s and gradually improved. Denies diarrhea. He wants to go home but agreed to stay overnight for further monitoring and treatment. White blood cell count increased to 15.2 Apparently patient did not mean to say trilogy machine and meant to say Trelegy inhaler. Medications: Reviewed: Yes Vitals/I&O/Wt Last Vital Signs Temp 98.0 F 07/08/19 15:12 Pulse 96 07/08/19 15:12 Resp 17 07/08/19 15:12 BP 126/90 07/08/19 15:12 Pulse Ox 91 07/08/19 15:12 07/08/19 07/08/19 07/08/19 06:59 14:59 22:59 Intake Total 300 / 1286 472 / 472 Balance 300 / 1086 472 / 472 Weight last 48 hrs Weight 80.195 kg Weight 79.605 kg Physical Exam Const: COMMON NORMALS: oriented x3 Resp: OTHER: Minimal bibasilar rhonchi with overall decreased air movement but no wheezing. Cardio: COMMON NORMALS: regular rate, regular rhythm and S2 normal heart sound RATE: regular rate RHYTHM: regular rhythm HEART SOUNDS: S2 normal OTHER: No lower extremity edema bilaterally. GI: COMMON NORMALS: normal to inspection, nondistended, normoactive bowel sounds, soft to palpation and non-tender PALPATION: Yes soft Neuro: COMMON NORMALS: oriented x3 and no focal motor deficits Data : 07/08/19 15:17 07/08/19 15:17 A&P Assessment and plan (1) COPD (chronic obstructive pulmonary disease): Currently not in exacerbation. Status: Acute Code(s): J44.9 - Chronic obstructive pulmonary disease, unspecified (2) Atrial fibrillation: Converted back to normal sinus rhythm. Status: Acute Qualifiers: Atrial fibrillation type: unspecified Qualified Code(s): I48.91 - Unspecified atrial fibrillation Code(s): I48.91 - Unspecified atrial fibrillation (3) Diabetes mellitus: Patient does not want to initiate insulin. He is currently on Invokana at home Status: Acute Code(s): E11.9 - Type 2 diabetes mellitus without complications (4) Hypertension: Status: Acute Code(s): I10 - Essential (primary) hypertension (5) Hyperlipidemia: Status: Acute Code(s): E78.5 - Hyperlipidemia, unspecified (6) Hypertriglyceridemia: Status: Acute Code(s): E78.1 - Pure hyperglyceridemia Additional A&P Information Continue monitoring in CSU. Continue current monitoring and treatment and medication adjustment as needed. Will request 2 view chest x-ray for further evaluation. Continue antibiotic for now. Shortness of breath is resolved. BNP is elevated at around 600. Will use 20 mg of IV Lasix. O2 sats is between 88 to 92% however this may be consistent with her known COPD. He does not wear home O2. We will get an home O2 eval prior to discharge. We do not have an echocardiogram since A. fib has started. He states one was recently performed at [facility] in [place] however we do not have the results of the study. Serial troponins are negative and unremarkable Deltas. Lipid panel this a.m. grossly abnormal with triglyceride level greater than 2000. Start high intensity statin Atorvastatin 80mg qd. We will use DuoNeb inhalation every 4 hour as needed for COPD. For diabetes, suboptimal control over the past few months. For now we will change to aggressive sliding scale insulin. Insomnia. Start patient on trazodone as patient reports that it worked yesterday and he was able to sleep 2-3 hours. Left T2-T3 level paravertebral soft tissue mass. Recently was evaluated at [facility] with MRI as per patient. Acute bronchitis with Bibasilar community-acquired pneumonia. Most likely present on admission. Start patient on Levaquin. DVT prophylaxis: He is currently on prophylaxis with Eliquis which will cover. CODE STATUS is full code Attestations Medical Necessity Statement*: Patient with atrial fibrillation and rapid ventricle response as well as pneumonia requires close inpatient monitoring and treatment will deemed safe for discharge Time Spent in Patient Care: 16 - 35 minutes Coding Level of Care Code Acute Payroll Accounting Specialist for g Fwd Diagnoses COPD (chronic obstructive pulmonary disease) J44.9 Atrial fibrillation I48.91 Atrial fibrillation type: unspecified Diabetes mellitus E11.9 Hypertension I10 Hyperlipidemia E78.5 Hypertriglyceridemia E78.1
--- NOTE | 2019-07-08 16:30 | XR_ITS ---
WS: [id number] Chest 2 views, 07/08/2019 Clinical Data: Pneumonia Comparison: Portable chest, 07/05/2019 Findings: No nodules, masses or effusions are seen. The heart is normal. The pulmonary vascularity is not increased. No pneumonia or pneumothorax is seen. The bibasilar consolidation has cleared. The di aphragms are flattened. There are monitor leads on the chest wall. There is a slight levoscoliosis of the thoracic spine. Monitor leads are on the chest wall. XR/XR chest 2V insp/exp [id number] Impression: Atherosclerosis and hyperinflation.
--- NOTE | 2019-07-08 16:40 | ECG_ITS ---
Measurements Intervals [place] Rate: 91 P: 81 IL: 136 QRS: 63 QRSD: 94 T: 64 QT: 323 QTc: 398 SINUS RHYTHM POSSIBLE LEFT ATRIAL ENLARGEMENT [-0.1mV P WAVE IN V1/V2] Compared to ECG 07/05/2019 22:49:06 No significant changes Electronically Signed On 07-08-2019 21:02:55 PEOPLESOFT FINANCIALS CONSULTANT by Minal Romero M.D. [id number]
[2019-07-08 17:02] LABS: Glucose Point of Care 309 mg/dL (70-110)
[2019-07-08] MEDS: HYDROcodone-acetaminophen 5-325 mg Tablet 1 TAB PO (17:32)
[2019-07-08] MEDS: metoprolol tartrate 25 mg Tablet 12.5 MG PO (17:34)
[2019-07-08] MEDS: metoprolol tartrate 25 mg Tablet PO (17:35)
--- NOTE | 2019-07-08 20:27 | PM.CONSULT ---
Providers/Reason For Consult Consulting Physican/Specialty*: Cardiology Reason for Consult*: Atrial fibrillation with rapid ventricular response Attending Physician: Calvin Caldwell MD Primary Care Provider: Aristides Smith MD History of Present Illness History of Present Illness Ralph Matta is a 63 year old male Past medical history significant for COPD, recent onset of atrial fibrillation on anticoagulation, hypertension, hyperlipidemia, history of tobacco abuse quit 7 years ago, history of alcohol and drug abuse quit many years ago was admitted with COPD exacerbation and atrial fibrillation with rapid ventricular response. Patient was recently discharged from [facility]. He was admitted there with new onset of A. fib. He was started on Metoprolol.He converted back into sinus rhythm and was discharged however within 48 hours while cleaning his truck patient went back into rapid heart rate started feeling shortness of breath and chest pressure therefore came to ER. Dr. Caldwell added Cardizem Which converted back to him sinus rhythm. He was about to discharge again today while straining in the washroom due to constipation he slipped back into A. fib with heart rate into 170s. When I saw the patient he was sitting not in distress and heart rate in the 70s again. Underlying rhythm is sinus. Byphysical examination he appeared to be elevated dehydrated.He otherwise denies PND orthopnea. According to the patient he had stress test in 2015 which was negative. I have not seen any echocardiogram so far. Review of Systems General: Reports: 10 or more systems reviewed and unremarkable except in HPI and below Const: Denies: fever, chills or body aches Eyes: Denies: change in vision, blurry vision, blind spots or photophobia ENMT: Reports: hoarseness; Denies: throat pain, enlarged tonsils, painful swallowing, mouth pain, swelling of lips/tongue or nasal congestion Card: Reports: palpitations and shortness of breath on exertion; Denies: chest pain, irregular heart rhythm, edema, swelling of feet/ankles, lightheadedness, pre-syncope or shortness of breath when lying down Resp: Denies: shortness of breath, productive cough, non-productive cough, wheezing, stridor, pain on inspiration, change in phlegm color, coughing up blood or chest congestion GI: Denies: abdominal pain, nausea, vomiting, vomiting blood, coffee grounds in vomit, difficulty swallowing, heartburn/indigestion, diarrhea, constipation, cramping, change in stool character, blood in stool or black tarry stool : Denies: flank pain, painful urination, urinary frequency, urinary urgency, urinary hesitancy or blood in urine Musc: Denies: neck pain, back pain, extremity pain, extremity swelling, joint pain, joint swelling, joint warmth or deformity Skin/Breast: Denies: rash, itching or redness Neuro: Denies: headache, numbness in extremities, weakness in extremities, changes in sensation, difficulty walking, frequent falls, dizziness, vertigo, behavioral changes, slurred speech or seizure-like activity Psych: Denies: anxiety, depression, suicidal ideation or homicidal ideation Endo: Denies: excessive urination, excessive thirst, tired all the time, cold intolerance or hot flashes Rj/Lymph: Denies: easy bruising or easy bleeding Meds/Allergies Home Medications and Allergies Home Medications Medication Instructions Recorded Confirmed Type apixaban [Eliquis] 5 mg PO BID 07/05/19 07/05/19 History canagliflozin [Invokana] 300 mg PO DAILY 07/05/19 07/05/19 History doxycycline hyclate 100 mg PO BID 07/05/19 07/05/19 History qmhkxesfrvb-vlogyqhkt-kugttvli 1 inh INHALATION DAILY 07/05/19 07/05/19 History [Trelegy Ellipta] lisinopril 20 mg PO DAILY 07/05/19 07/05/19 History loratadine 10 mg PO DAILY PRN 07/05/19 07/05/19 History metoprolol tartrate 50 mg PO BID 07/05/19 07/05/19 History prednisone 40 mg PO DAILY 07/05/19 07/05/19 History tamsulosin 0.4 mg PO BEDTIME 07/05/19 07/05/19 History Allergies Allergy/AdvReac Type Severity Reaction Status Date / Time No Known Allergies Allergy Verified 06/27/19 10:40 Current Medications Current Medications Generic Name Dose Route Start Last Admin Trade Name Freq PRN Reason Stop Dose Admin Acetaminophen 650 mg 07/05/19 20:36 07/07/19 21:06 Tylenol PO 650 mg Q6H PRN Administration Mild/Mod Pain Or Temp >/= 101 Hydrocodone Bitart/Acetaminophen 1 tab 07/08/19 17:20 07/08/19 17:32 Miranda 5-325 Mg PO 1 tab Q6H PRN Administration MODERATE PAIN Albuterol/Ipratropium 3 ml 07/06/19 03:00 07/08/19 20:03 Duoneb INHALATION 3 ml Q6H.RESPIRATORY ALYSSA Administration Apixaban 5 mg 07/06/19 09:00 07/08/19 17:37 Eliquis PO 5 mg BID ALYSSA Administration Atorvastatin Calcium 80 mg 07/06/19 21:00 07/07/19 21:02 Lipitor PO 80 mg BEDTIME ALYSSA Administration Cetirizine HCl 10 mg 07/06/19 19:20 07/08/19 08:02 Zyrtec PO 10 mg DAILY ALYSSA Administration Diltiazem HCl 60 mg 07/07/19 19:00 07/08/19 15:00 Cardizem PO 60 mg Q6H ALYSSA Administration Levofloxacin/Dextrose 750 mg in 150 mls @ 150 mls/hr 07/07/19 18:45 07/07/19 22:15 Levaquin-D5w IV Infused Q24H ALYSSA Infusion Protocol Insulin Aspart 0 unit 07/06/19 12:00 07/08/19 17:37 Novolog SUBCUT 14 unit WM&BEDTIME ALYSSA Administration Protocol Lisinopril 10 mg 07/06/19 09:00 07/08/19 08:02 Prinivil PO 10 mg DAILY ALYSSA Administration Metoprolol Tartrate 25 mg 07/08/19 18:00 07/08/19 17:35 Lopressor PO 25 mg BID ALYSSA Administration Trazodone HCl 50 mg 07/07/19 18:34 07/07/19 21:02 Desyrel PO 50 mg BEDTIME PRN Administration INSOMNIA PFSH Acute PFSH: Statuses (acute, chronic, etc) shown below reflect problem list status as previously entered and may not be historically accurate Medical History Atrial fibrillation (Acute) COPD (chronic obstructive pulmonary disease) (Acute) Diabetes mellitus (Acute) Hyperlipidemia (Acute) Hypertension (Acute) Hypertriglyceridemia (Acute) Surgical History S/P colonoscopic polypectomy (Acute) Social History Smoking and tobacco status: former smoker Alcohol intake: never Substance/Drug Use: never Vitals/I&O/Wt Last Vital Signs Temp 98.1 F 07/08/19 19:22 Pulse 70 07/08/19 20:06 Resp 18 07/08/19 20:03 BP 114/75 07/08/19 19:22 Pulse Ox 95 07/08/19 20:03 07/08/19 07/08/19 07/08/19 06:59 14:59 22:59 Intake Total 300 / 1286 472 / 472 480 / 952 Balance 300 / 1086 472 / 472 480 / 952 Weight last 48 hrs Weight 176 lb 12.8 oz Weight 175 lb 8 oz Physical Exam Narrative: EXAM NARRATIVE: GENERAL: Patient is alert, awake and oriented x3. NECK: No jugular vein distension. HEENT: No cyanosis. No icterus. No pallor. HEART: Regular S1 and S2. No murmur, rub or gallop. LUNGS: Decrease breath bilaterally. ABDOMEN: Soft, nontender and nondistended. Positive bowel sounds. No guarding, rebound or tenderness. CENTRAL NERVOUS SYSTEM: Grossly nonfocal. EXTREMITIES: Lower extremities without edema bilaterally. A&P Assessment and plan (1) Atrial fibrillation: Currently patient is in sinus rhythm . We will continue Cardizem at current dose of 60 4 times a day and metoprolol 25 twice a day. Continue anticoagulation. I will also give him IV fluid tonight for hydration. We will obtain echocardiogram in the morning to assess LV function and any valvular abnormality at the same time to gauge atrial size. We also recommend switching him to levalbuterol. Status: Acute Qualifiers: Atrial fibrillation type: unspecified Qualified Code(s): I48.91 - Unspecified atrial fibrillation Code(s): I48.91 - Unspecified atrial fibrillation (2) Hypertension: Well controlled continue current regimen Status: Acute Code(s): I10 - Essential (primary) hypertension (3) Hyperlipidemia: On statin we will continue medicine Status: Acute Code(s): E78.5 - Hyperlipidemia, unspecified (4) COPD (chronic obstructive pulmonary disease): Patient can be switched to levalbuterol from albuterol for tachycardia Status: Acute Code(s): J44.9 - Chronic obstructive pulmonary disease, unspecified Consult Attestations Medical Necessity Statement: Required continuation hospitalization for above defined care. Coding Level of Care Code New Pt Acute Clearance Rep for Chg Fwd Patient Type New History Detailed Exam Expanded Problem Focused Medical Decision Making Moderate Complexity Diagnoses Atrial fibrillation I48.91 Atrial fibrillation type: unspecified Hypertension I10 Hyperlipidemia E78.5 COPD (chronic obstructive pulmonary disease) J44.9
[2019-07-08 20:46] LABS: Glucose Point of Care 308 mg/dL (70-110)
[2019-07-08] MEDS: atorvastatin 40 mg Tablet 80 MG PO (21:02)
[2019-07-08] MEDS: sodium chloride 0.9% 1,000 ML 100 ML IV (21:02)
[2019-07-08] MEDS: levofloxacin-dextrose 5 % 750 MG/150 ML PREMIX 150 MG IV (21:03)
[2019-07-08] MEDS: trazodone 50 mg Tablet PO (21:07)
[2019-07-09] MEDS: dilTIAZem 60 mg Tablet PO ×2 (03:15→08:37)
[2019-07-09 03:50] LABS: Alanine Aminotransferase 23 U/L (0-41); Albumin Level 3.1 g/dL (3.5-5.2); Alkaline Phosphatase 72 IU/L (40-130); Anion Gap 18.4 (5-19); Aspartate Amino Transferase 13 U/L (0-40); Basophils % 0.4 %; Blood Urea Nitrogen 34 mg/dL (8-23); Carbon Dioxide 21 mmol/L (22-29); Chloride 99 mmol/L (98-107); Eosinophils # 0.2 10^3/uL (0.0-0.8); Eosinophils % 2.2 %; Globulin 3.3 g/dL (1.3-4.6); Glomerular Filtration Rate 60.8 mL/min (90-130); Glucose 221 mg/dL (74-106); Hematocrit 46.4 % (42.0-52.0); Hemoglobin 15.4 g/dL (11.7-16.6); Lymphocytes # 2.3 10^3/uL (0.8-4.8); Lymphocytes % 22.9 %; Mean Corpuscular HGB Conc 33.2 g/dL (30.0-36.0); Mean Corpuscular Hemoglobin 29.9 pg (28.0-34.0); Mean Corpuscular Volume 90.1 fL (80-94); Mean Platelet Volume 11.5 fL (7.4-10.4); Monocytes # 1.1 10^3/uL (0.2-0.9); Monocytes % 10.9 %; Neutrophils # 6.3 10^3/uL (1.8-7.7); Neutrophils % 61.7 %; Nucleated Red Blood Cells % 0 %; Platelet Count 157 10^3/cmm (130-400); Potassium 4.4 mmol/L (3.5-5.1); Red Blood Count 5.15 10^6/uL (4.1-5.3); Red Cell Distribution Width 13.1 % (12.1-15.1); Sodium 134 mmol/L (136-145); Total Bilirubin 0.5 mg/dL (0.15-1.2); Total Protein 6.4 g/dL (6.6-8.7); White Blood Count 10.2 10^3/uL (4.0-10.0)
[2019-07-09 04:00] VITALS: BP 111/63; PULSE 87; RESP 18; TEMP 36.9; O2SAT 90
[2019-07-09] MEDS: sodium chloride 0.9% 1,000 ML 100 ML IV (05:43)
[2019-07-09 06:40] LABS: Glucose Point of Care 242 mg/dL (70-110)
--- NOTE | 2019-07-09 07:00 | USCV_ITS ---
Ralph Matta Age: 63 Gender: M : 1955 Exam Date: 07/09/2019 06:24 Ordering Phys: Radames Cobos MD ([email or web address]) Technologist: Christos Kenyon [place] [facility] [place]: A FIB BP: 132 / 73 HR: 76 Rhythm: Sinus Technical Quality: Good MEASUREMENTS (Male / Female) Normal Values 2D ECHO LV Diastolic Diameter PLAX 4.6 cm 4.2 - 5.9 / 3.9 - 5.3 cm LV Systolic Diameter PLAX 3.0 cm IVS Diastolic Thickness 1.0 cm 0.6 - 1.0 / 0.6 - 0.9 cm IVS Systolic Thickness 1.6 cm LVPW Diastolic Thickness 1.0 cm 0.6 - 1.0 / 0.6 - 0.9 cm LVPW Systolic Thickness 1.2 cm LVOT Diameter 2.1 cm LV Ejection Fraction 2D Teich 63.6 % LV Ejection Fraction MOD 2C 54.0 % LV Ejection Fraction 2C AL 54.1 % LA Diameter 4.0 cm LA Width 3.5 cm LA Height 4.6 cm RA Width 3.2 cm RA Height 4.4 cm Aorta at Sinotubular Diameter 3.0 cm M-MODE LV Diastolic Diameter MM 5.3 cm 4.2 - 5.9 / 3.9 - 5.3 cm LV Systolic Diameter MM 3.6 cm LV Ejection Fraction MM Teich 59.7 % IVS Diastolic Thickness MM 1.2 cm 0.6 - 1.0 / 0.6 - 0.9 cm IVS Systolic Thickness MM 1.4 cm LVPW Diastolic Thickness MM 1.7 cm 0.6 - 1.0 / 0.6 - 0.9 cm LVPW Systolic Thickness MM 1.5 cm RV Diastolic Diameter MM 1.8 cm Aortic Annulus Diameter 3.2 cm LA Ao Ratio MM 1.3 MV E Point Septal Separation 1.3 cm DOPPLER AV Peak Velocity 118.0 cm/s LVOT Peak Velocity 109.0 cm/s AV Area Cont Eq vti 3.5 cm squared AV Area Cont Eq pk 3.2 cm squared MV Area PHT 3.2 cm squared Mitral E to A Ratio 0.7 MV E' Velocity 8.0 cm/s Mitral E to MV E' Ratio 7.4 Mitral E to LV E' Lateral Ratio 7.2 Mitral E to LV E' Septal Ratio 7.6 TR Peak Velocity 141.0 cm/s TR Peak Gradient 8.0 mmHg TV Peak E Velocity 73.0 cm/s Right Atrial Pressure 3.0 mmHg Pulmonary Artery Systolic Pressu 11.0 mmHg FINDINGS Left Ventricle Normal left ventricular cavity size. Normal left ventricular systolic function. No regional wall motion abnormalities. Left ventricular ejection fraction is estimated at 59 %. Grade I/IV diastolic dysfunction (abnormal relaxation filling pattern), normal to mildly elevated filling pressures. Right Ventricle The right ventricle is normal in size and function. Right Atrium The right atrium is normal in size. Left Atrium The left atrium is normal in size. Mitral Valve Mildly thickened mitral valve. No mitral valve stenosis. Mild mitral valve regurgitation. Aortic Valve Aortic valve sclerosis without stenosis or regurgitation. Tricuspid Valve Structurally normal tricuspid valve without significant stenosis or regurgitation. Pulmonary artery systolic pressure is normal. Pulmonic Valve Structurally normal pulmonic valve without significant stenosis. There is no pulmonic regurgitation. Pericardium Normal pericardium without effusion. Aorta Normal ascending aorta dimension. CONCLUSIONS 1-Normal left ventricular cavity size. Normal left ventricular systolic function. No regional wall motion abnormalities. Left ventricular ejection fraction is estimated at 59 %. Grade I/IV diastolic dysfunction (abnormal relaxation filling pattern), normal to mildly elevated filling pressures. 2-Mildly thickened mitral valve. No mitral valve stenosis. Mild mitral valve regurgitation. 3-There is no pericardial effusion. 4-Pulmonary artery systolic pressure is within normal limits. 5-Right atrial pressure is around 5 mm of mercury. 6-No significant change since the prior echocardiogram study of 07/06/2019 Radames Cobos MD (Electronically Signed) Final Date: 09 July 2019 19:58 S
[2019-07-09 07:31] VITALS: BP 106/79; PULSE 84; RESP 17; TEMP 36.7; O2SAT 90
[2019-07-09] MEDS: metoprolol tartrate 25 mg Tablet PO (08:34)
[2019-07-09] MEDS: apixaban 5 mg Tablet PO (08:34)
[2019-07-09] MEDS: lisinopril 10 mg Tablet PO (08:34)
[2019-07-09] MEDS: cetirizine 10 mg Tablet PO (08:34)
[2019-07-09 08:39] VITALS: PULSE 85; RESP 18; O2SAT 93
[2019-07-09] MEDS: ipratropium-albuterol 3 mL Neb INHALATION (08:39)
[2019-07-09 08:44] VITALS: PULSE 88
--- NOTE | 2019-07-09 10:06 | PM.PN ---
Subjective Subjective: Interval history: Says he is feeling better stays in sinus rhythm. Medications: Reviewed: Yes Vitals/I&O/Wt Last Vital Signs Temp 98.0 F 07/09/19 07:31 Pulse 88 07/09/19 08:44 Resp 18 07/09/19 08:39 BP 106/79 07/09/19 07:31 Pulse Ox 93 07/09/19 08:39 07/08/19 07/09/19 07/09/19 22:59 06:59 14:59 Intake Total 480 / 952 1418.333 / 2370.333 360 / 360 Balance 480 / 952 1418.333 / 2370.333 360 / 360 Weight last 48 hrs Weight 180 lb Weight 176 lb 12.8 oz Physical Exam Narrative: EXAM NARRATIVE: GENERAL: Patient is alert, awake and oriented x3. NECK: No jugular vein distension. HEENT: No cyanosis. No icterus. No pallor. HEART: Regular S1 and S2. No murmur, rub or gallop. LUNGS: Decrease breath bilaterally. ABDOMEN: Soft, nontender and nondistended. Positive bowel sounds. No guarding, rebound or tenderness. CENTRAL NERVOUS SYSTEM: Grossly nonfocal. EXTREMITIES: Lower extremities without edema bilaterally. Data : 07/09/19 03:00 07/09/19 03:00 A&P Assessment and plan (1) Atrial fibrillation: We will switch patient to long-acting Cardizem of 240 mg by mouth daily and metoprolol 25 mg by mouth twice a day along with anticoagulation. I will leave it to Dr. Caldwell if he can be switched to levalbuterol. Patient will follow up in 7 days with Philly Castano cardiology Nurse practitioner and myself in 2-3 months Status: Acute Qualifiers: Atrial fibrillation type: unspecified Qualified Code(s): I48.91 - Unspecified atrial fibrillation Code(s): I48.91 - Unspecified atrial fibrillation (2) Hypertension: Well controlled continue current regimen Status: Acute Code(s): I10 - Essential (primary) hypertension (3) Hyperlipidemia: On statin we will continue medicine Status: Acute Code(s): E78.5 - Hyperlipidemia, unspecified (4) COPD (chronic obstructive pulmonary disease): As per medicine Status: Acute Code(s): J44.9 - Chronic obstructive pulmonary disease, unspecified Attestations Medical Necessity Statement*: From a cardiovascular perspective patient can be discharged. 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
--- NOTE | 2019-07-09 10:47 | PM.DCS ---
Discharge Providers Date of Admission: 07/05/19 18:15 Date of Discharge: Date of Discharge: July 09, 2019 Attending Provider at Admission: Abigail Goldsmith MD Attending Provider at Discharge: Calvin Caldwell MD Primary Care Provider: Aristides Smith MD Diagnoses at Discharge Discharge Diagnosis (1) Atrial fibrillation: Status: Acute Qualifiers: Atrial fibrillation type: unspecified Qualified Code(s): I48.91 - Unspecified atrial fibrillation (2) Hypertension: Status: Acute (3) Hyperlipidemia: Status: Acute (4) COPD (chronic obstructive pulmonary disease): Status: Acute (5) Pneumonia: Status: Acute (6) Acute bronchitis: Status: Acute Reason for Visit Reason for Visit: Reason For Visit: AFIB W/RVR Hospital Course Discharge Summary: Patient presented with shortness of breath secondary to acute COPD exacerbation due to acute bronchitis and highly suspected bibasilar pneumonia. Patient was noted to be in atrial fibrillation with rapid ventricular response. Patient was treated with antibiotics and get blocking agents. He converted back to normal sinus rhythm. We will continue Levaquin for 5 more days. This morning patient reports feeling much better and wants to go home. Records from outside hospital was received showing 50 to 55% EF on echocardiogram performed recently. Patient was seen by Dr. Cobos, cardiology and outpatient follow-up will be requested. Metformin will be added for better blood sugar control. Patient's get blocking agents initially switched to Cardizem but lower dose of metoprolol was added for better heart rate control. Discussed with Dr. Cobos and we will dismiss patient on metoprolol and Cardizem together. Patient does not like the way bronchodilators work therefore I will go ahead and discontinue his home bronchodilator and start patient on Spiriva and levalbuterol. Discharge Data Data Completed and Pending: Completed Studies During Hospitalization Category Date Time Status XR chest 1V avelino ble [id number] Stat Exams 07/05/19 16:45 Completed XR chest 2V insp/ exp [id number] Routine Exams 07/08/19 16:30 Completed Pending at discharge Category Date Time Status CV echo complete* [id number] Routine Ultrasound 07/06/19 09:37 Taken CV echo complete* [id number] Routine Ultrasound 07/09/19 07:00 Taken Labs from last 24 hours 07/09/19 07/09/19 07/09/19 06:22 03:00 03:00 WBC 10.2 H RBC 5.15 Hgb 15.4 Hct 46.4 MCV 90.1 MCH 29.9 MCHC 33.2 RDW 13.1 Plt Count 157 MPV 11.5 H Neut % (Auto) 61.7 Lymph % (Auto) 22.9 [place] % (Auto) 10.9 Eos % (Auto) 2.2 Baso % (Auto) 0.4 Neut # (Auto) 6.3 Lymph # (Auto) 2.3 [place] # (Auto) 1.1 H Eos # (Auto) 0.2 Baso # (Auto) 0.0 Nucleated RBC % (a uto) 0 Nucleated RBCs # 0.0 Sodium 134 L Potassium 4.4 Chloride 99 Carbon Dioxide 21 L Anion Gap 18.4 BUN 34 H Creatinine 1.2 GFR Calculation 60.8 L Glucose 221 H POC Glucose 242 Calcium 9.0 Total Bilirubin 0.5 AST 13 ALT 23 Alkaline Phosphata se 72 Total Protein 6.4 L Albumin 3.1 L Globulin 3.3 07/08/19 07/08/19 07/08/19 20:33 16:46 15:17 WBC RBC Hgb Hct MCV MCH MCHC RDW Plt Count MPV Neut % (Auto) Lymph % (Auto) [place] % (Auto) Eos % (Auto) Baso % (Auto) Neut # (Auto) Lymph # (Auto) [place] # (Auto) Eos # (Auto) Baso # (Auto) Nucleated RBC % (a uto) Nucleated RBCs # Sodium 129 L Potassium 4.6 Chloride 96 L Carbon Dioxide 20 L Anion Gap 17.6 BUN 38 H Creatinine 1.3 H GFR Calculation 55.4 L Glucose 294 H POC Glucose 308 309 Calcium 10.0 Total Bilirubin 0.4 AST 16 ALT 27 Alkaline Phosphata se 82 Total Protein 7.6 Albumin 4.2 Globulin 3.4 07/08/19 07/08/19 15:17 10:34 WBC 15.2 H RBC 5.83 H Hgb 18.1 H Hct 54.6 H MCV 93.7 MCH 31.0 MCHC 33.2 RDW 13.2 Plt Count 194 MPV 11.4 H Neut % (Auto) 63.2 Lymph % (Auto) 24.9 [place] % (Auto) 8.9 Eos % (Auto) 1.2 Baso % (Auto) 0.4 Neut # (Auto) 9.6 H Lymph # (Auto) 3.8 [place] # (Auto) 1.4 H Eos # (Auto) 0.2 Baso # (Auto) 0.1 Nucleated RBC % (a uto) 0 Nucleated RBCs # 0.0 Sodium Potassium Chloride Carbon Dioxide Anion Gap BUN Creatinine GFR Calculation Glucose POC Glucose 278 Calcium Total Bilirubin AST ALT Alkaline Phosphata se Total Protein Albumin Globulin Vitals: Last Vital Signs Temp 98.0 F 07/09/19 07:31 Pulse 88 07/09/19 08:44 Resp 18 07/09/19 08:39 BP 106/79 07/09/19 07:31 Pulse Ox 93 07/09/19 08:39 Discharge Plan Discharge Patient Disposition: Home, Self-Care Condition: Stable Prescriptions: New lisinopril 10 mg Tablet 10 mg PO DAILY 30 Days Qty: 30 RF: 0 atorvastatin 40 mg Tablet 40 mg PO BEDTIME Qty: 30 RF: 0 diltiazem HCl [Cardizem CD] 240 mg capsule,extended release 24hr 240 mg PO DAILY Qty: 30 RF: 0 levofloxacin 500 mg tablet 500 mg PO DAILY 5 Days Qty: 5 RF: 0 metformin 500 mg tablet 500 mg PO BID Qty: 60 RF: 0 levalbuterol tartrate 45 mcg/actuation HFA aerosol inhaler 2 inh INHALATION Q6H PRN (Reason: shortness of breath or wheezing) Qty: 15 RF: 0 Spiriva Respimat 1.25 mcg/actuation mist 2 inh INHALATION DAILY Qty: 4 RF: 0 acetaminophen 325 mg Tablet 650 mg PO Q6H PRN (Reason: Mild/Mod Pain Or Temp >/= 101) Qty: 30 RF: 0 metoprolol tartrate 25 mg Tablet 25 mg PO BID Qty: 60 RF: 0 Continued tamsulosin 0.4 mg Capsule 0.4 mg PO BEDTIME RF: 0 loratadine 10 mg Tablet 10 mg PO DAILY PRN (Reason: allergies) RF: 0 Eliquis 5 mg Tablet 5 mg PO BID RF: 0 Invokana 300 mg Tablet 300 mg PO DAILY RF: 0 Discontinued doxycycline hyclate 100 mg Capsule 100 mg PO BID RF: 0 lisinopril 20 mg Tablet 20 mg PO DAILY RF: 0 prednisone 20 mg Tablet 40 mg PO DAILY RF: 0 metoprolol tartrate 50 mg Tablet 50 mg PO BID RF: 0 Trelegy Ellipta 100-62.5-25 mcg Blister With Device 1 inh INHALATION DAILY RF: 0 Discharge Orders: Discharge Order (Routine); Ordered 07/09/19 Ordered By: Calvin Caldwell Referrals: Aristides Smith MD [Primary Care Provider] - 4-7 days Radames Cobos MD [Physician] - 2 weeks Discharge Diet: Usual diet Discharge Activity: Resume usual activity Patient Instructions: Diabetes and Diet, Managing Diabetes During Sick Days (DC), Diabetic Hyperglycemia (DC) Activity Restrictions/Additional Instructions: Please call your doctor or present to emergency department if your condition worsens or you develop diarrhea, lightheadedness, fatigue or see blood in your stool or black stool. Please keep blood pressure, heart rate and blood sugar log 3 times daily to present to primary care physician next visit for medication adjustment. 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
[2019-07-09 11:06] VITALS: BP 96/70; PULSE 79; RESP 21; TEMP 36.7; O2SAT 92
[2019-07-09 11:21] LABS: Glucose Point of Care 307 mg/dL (70-110)
[2019-07-09 11:43] VITALS: BP 96/70; PULSE 79; RESP 21; TEMP 36.7; O2SAT 92
--- NOTE | 2019-07-09 12:13 | PC.NURSE ---
Discharge instructions given and explained to patient; patient verbalized understanding of all information given IV discontinued cath intact min Bleeding noted
== END 2019-07-09 12:15 | disposition home or self-care (01) | DRG 308 ==
LOC: ER 18:49 → CSU 18:50
PROVIDERS: Admitting Provider Student in an Organized Health Care Education/Training Program; Emergency Provider Family Medicine; Family Provider Internal Medicine; PCP Internal Medicine; Visit Provider Internal Medicine
DX: I48.91 Unspecified atrial fibrillation (principal); J18.9 Pneumonia, unspecified organism; J44.0 Chronic obstructive pulmonary disease with (acute) lower respiratory infection; J44.1 Chronic obstructive pulmonary disease with (acute) exacerbation; Z79.01 Long term (current) use of anticoagulants; I10 Essential (primary) hypertension; E11.9 Type 2 diabetes mellitus without complications; Z87.891 Personal history of nicotine dependence; E78.5 Hyperlipidemia, unspecified; E78.1 Pure hyperglyceridemia; J20.9 Acute bronchitis, unspecified; Z79.52 Long term (current) use of systemic steroids; Z79.899 Other long term (current) drug therapy; Z79.890 Hormone replacement therapy
CPT/HCPCS: 12345; 36415; 36416; 71045; 71046; 80048; 80053; 80061; 80307; 81003; 82962; 83036; 83721; 83735; 83880; 84443; 84484; 85025; 93005; 93306; 94640; 94664; 96360; 96365; 96366; 96372; 96374; 96375; 99283; A9270; J1815; J1940; J1956; J2270; J3490; J7030

== ENCOUNTER 2021-03-08 14:05 | Outpatient (CLI) | payer MEDICARE, SELFPAY ==
--- NOTE | 2021-03-08 14:16 | XR_ITS ---
WS: [id number] XR lumbar spine 2-3V* [id number] REASON FOR EXAM: BACK PAIN FINDINGS: No significant compression deformity or other significant focal abnormality of the lumbar vertebrae. There is moderate narrowing of the L5-S1 disc space. Milder narrowing of the disc spaces at L1-L2 and L2-L3. There is a 4 mm of anterolisthesis of L5 on S1. Degenerative changes in the facet joints at L4-L5 and L5-S1. XR/XR lumbar spine 2-3V* [id number] IMPRESSION: Degenerative spondylosis as above.
--- NOTE | 2021-03-08 14:16 | XR_ITS ---
WS: [id number] XR cervical spine 3V* [id number] REASON FOR EXAM: NECK PAIN FINDINGS: No significant compression deformity or other focal abnormality of the cervical vertebrae. There is a mild reversal of the normal lordosis of the cervical spine. There is moderate narrowing of the C4-C5 C5-C6 and C6-C7 interspaces. There is 2 mm of retrolisthesis of C4 in relation to C3. No abnormality of the facet joints. Calcified plaque in the carotid artery bifurcations bilaterally. XR/XR cervical spine 3V* [id number] IMPRESSION: Multilevel degenerative spondylosis as above. Calcified plaque in the common carotid arteries .
== END 2021-03-08 14:06 | disposition home or self-care (01) ==
LOC: RAD 14:09
PROVIDERS: PCP Nurse Practitioner Family; Visit Provider Nurse Practitioner Family
DX: M47.816 Spondylosis without myelopathy or radiculopathy, lumbar region (principal); M47.812 Spondylosis without myelopathy or radiculopathy, cervical region; I65.23 Occlusion and stenosis of bilateral carotid arteries
CPT/HCPCS: 72040; 72100

== ENCOUNTER 2021-05-13 13:28 | Emergency (ER) | payer MEDICARE, SELFPAY ==
--- NOTE | 2021-05-13 13:33 | ECG_ITS ---
[facility] Test Date: 2021-05-13 Pat Name: Ralph Matta Department: Room: Gender: Male Manager Lan: : 1955 Requested By: Gregory Cagle Order Number: [id number] Patti MD: Devante Colindres M.D. 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 [email or web address]
--- NOTE | 2021-05-13 13:33 | XR_ITS ---
WS: [id number] Exam: XR chest 1V portable [id number] Date/Time of Exam: 05/13/2021 1:57 PM Reason For Exam: sob Comparison to 08/23/2019. The lungs are hyperinflated and clear. There are areas of fibrosis and bleb formation in the mid and upper lung zones suggesting bullous emphysema. Scattered calcified granulomas. Heart size is normal. The mediastinum is not widened. Old proximal left humeral fracture. XR/XR chest 1V portable [id number] IMPRESSION: 1. No acute cardiopulmonary finding. 2. Fibrosis and bullous emphysema and pulmonary hyperinflation.
[2021-05-13 13:43] VITALS: BP 147/82; PULSE 75; RESP 18; TEMP 37.1; O2SAT 93; BMI 27.3
== END 2021-05-13 18:31 | disposition left against medical advice (07) ==
PROVIDERS: Emergency Provider Family Medicine; PCP Nurse Practitioner Family
DX: Z53.21 Procedure and treatment not carried out due to patient leaving prior to being seen by health care provider (principal)
CPT/HCPCS: 71045; 93005; 99282

== ENCOUNTER 2021-05-14 08:54 | Emergency (ER) | payer MEDICARE, SELFPAY ==
[2021-05-14 09:00] VITALS: BP 163/81; PULSE 71; RESP 20; TEMP 36.7; O2SAT 93; BMI 26.5
--- NOTE | 2021-05-14 09:22 | ED_ITS ---
HPI - SOB/Dyspnea General: Chief Complaint: Shortness of Breath/Dyspnea Stated Complaint: SOB Time Seen by Provider: 05/14/21 08:55 History of Present Illness: HPI Narrative: 65-year-old male presents emergency room complaining of shortness of breath headache and nonproductive cough. Is not had any fever sweats or chills no myalgias no anosmia. He denies any chest pain. MD elicited complaint: shortness of breath and cough Pertinent past history: COPD Onset (ago): hour(s) Timing: progressively worsening Severity: mild Exacerbating factors: exertion and coughing Relieving factors: rest Associated symptoms: Reports chest congestion and cough; Deny abdominal pain, chest pain, diaphoresis, dizziness, extremity pain, fever(s), hemoptysis, lightheadedness, myalgias, nausea, orthopnea, palpitations, paresthesias, polydipsia, polyuria, rash, sense of impending doom, syncope or vomiting Treatment prior to arrival: none Review of Systems Const: Denies: fever(s) or diaphoresis ENMT: Denies: throat pain, ear or mastoid pain, nasal discharge or nasal congestion Card: Denies: chest pain, palpitations, lightheadedness, syncope or orthopnea Resp: Reports: chest congestion; Denies: hemoptysis GI: Denies: abdominal pain, nausea or vomiting : Denies: flank pain, dysuria, urinary frequency or urinary urgency Musc: Denies: extremity pain Skin/Breast: Denies: rash or pruritus Neuro: Denies: dizziness Endo: Denies: polyuria or polydipsia PFSH ED PFSH: Medical History Atrial fibrillation COPD (chronic obstructive pulmonary disease) Diabetes mellitus Hyperlipidemia Hypertension Hypertriglyceridemia Surgical History S/P colonoscopic polypectomy Family History Father CAD (coronary artery disease) Cancer Lung disease Mother Hyperlipidemia Hypertension Denies family history of Diabetes Clotting disorder Dementia Psychiatric illness Chronic kidney disease (CKD) Suicide Anesthesia complication Bleeding disorder Family history of premature coronary artery disease Social History Smoking and tobacco status: former smoker Alcohol intake: never Physical Exam Const: COMMON NORMALS: no acute distress GENERAL APPEARANCE: cooperative and comfortable ORIENTATION/CONSCIOUSNESS: Yes awake, Yes oriented to person, Yes oriented to place and Yes oriented to time HENMT: COMMON NORMALS: normocephalic, atraumatic and hearing grossly normal bilaterally HEAD & SCALP: normocephalic and atraumatic Neck/C-Spine: COMMON NORMALS: no JVD Resp: COMMON NORMALS: normal respiratory effort, No retractions and No use of accessory muscles AUSCULTATION: wheezes and diminished lung sounds Cardio: COMMON NORMALS: no JVD, regular rate, regular rhythm and No murmurs present (Cardio) RATE: regular rate RHYTHM: regular rhythm GI: COMMON NORMALS: Soft to palpation and No hepatosplenomegaly present AUSCULTATION: Yes normoactive bowel sounds PALPATION: Yes Soft to palpation, No Tenderness to palpation present (GI), No Guarding due to palpation present (GI) and Yes No hepatosplenomegaly present Extremity: COMMON NORMALS: normal to inspection, capillary refill normal, no clubbing, cyanosis or edema, no calf tenderness and no pedal edema Neuro: SENSORIUM/ORIENTATION: Yes oriented to person, Yes oriented to place and Yes oriented to time Skin: COMMON NORMALS: no rashes or lesions noted GENERAL SKIN EXAM: no rashes or lesions noted Course Vital Signs: Vital signs: Vital Signs Temperature 98.9 F 05/14/21 10:02 Pulse Rate 65 05/14/21 14:32 Respiratory Rate 20 H 05/14/21 14:32 Blood Pressure 148/78 05/14/21 14:32 Pulse Oximetry 94 05/14/21 14:32 MDM - SOB/Dyspnea MDM Narrative: Medical decision making narrative: Labs imaging and EKG reviewed. Nothing acute. EKG does not show anything acute. 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 Lab Data: Labs: Lab Results 05/14/21 05/14/21 05/14/21 09:30 09:51 09:51 WBC 9.0 10^3/uL 10^3/ uL (4.0-10.0) RBC 5.31 10^6/uL H 10 ^6/uL (4.1-5.3) Hgb 16.1 g/dL g/dL (11.7-16.6) Hct 48.5 % % (42.0-52.0) MCV 91.3 fl fl (80-94) MCH 30.3 pg pg (28.0-34.0) MCHC 33.2 g/dL g/dL (30.0-36.0) RDW 13.8 % % (12.1-15.1) Plt Count 163 10^3/cmm 10^3 /cmm (130-400) MPV 11.3 fL H fL (7.4-10.4) Neut % (Auto) 71.3 % % Lymph % (Auto) 17.6 % % Hettinger % (Auto) 7.5 % % Eos % (Auto) 2.6 % % Baso % (Auto) 0.4 % % Neut # (Auto) 6.41 10^3/uL 10^3 /uL (1.8-7.7) Lymph # (Auto) 1.6 10^3/uL 10^3/ uL (0.8-4.8) Hettinger # (Auto) 0.7 10^3/uL 10^3/ uL (0.2-0.9) Eos # (Auto) 0.2 10^3/uL 10^3/ uL (0.0-0.8) Baso # (Auto) 0.0 10^3/uL 10^3/ uL (0.0-0.1) Nucleated RBC % (a uto) 0 % % Nucleated RBCs # 0.0 /100WBC /100W BC D-Dimer Specimen Type Arterial Sample Site Radial, left ABG pH 7.42 (7.35-7.45) ABG pCO2 37.6 mmHg mmHg (35-45) ABG pO2 66.6 mmHg L mmHg (80.0-100.0) ABG HCO3 24.2 mmol/L mmol/ L (22-26) ABG O2 Saturation 94.5 ABG Base Excess -0.1 mmol/L mmol/ L (-2.0-2.0) Oumar Test Pos A-a O2 Gradient 4.5 mmHg L mmHg (5-10) Hematocrit 49.1 % % (42-52) Hgb O2 Saturation 92.8 % L % (95-100) Carboxyhemoglobin 1.5 %THgb %THgb (0.4-20.1) Methemoglobin 0.3 % L % (0.4-1.5) Total Hemoglobin 16.0 g/dL g/dL (14-18) Sodium 140.0 mmol/L mmol /L 138 mmol/L mmol/L (131-143) (136-145) Potassium 3.9 mmol/L mmol/L 4.3 mmol/L mmol/L (3.5-5.0) (3.5-5.1) Glucose 234.0 mg/dL H mg/ dL 215 mg/dL H mg/dL (70-115) (65-115) Ionized Calcium 1.2 mmol/L mmol/L (1.1-1.4) O2 Delivery Device Room air FiO2 21.0 % % Pegger Dobby Looms ID Monro Chloride 105 mmol/L mmol/L (98-107) Carbon Dioxide 24 mmol/L mmol/L (22-29) Anion Gap 13.3 (5-19) BUN 18 mg/dL mg/dL (8-23) Creatinine 0.8 mg/dL mg/dL (0.7-1.2) GFR Calculation 96.4 mL/min mL/mi n (90-130) Calculated Osmolal ity 294 mOsm/kg mOsm/ kg (285-295) Calcium 8.6 mg/dL mg/dL (8.5-10.5) Total Bilirubin 0.4 mg/dL mg/dL (0.15-1.2) AST 17 U/L U/L (0-40) ALT 28 U/L U/L (0-41) Alkaline Phosphata se 80 IU/L IU/L (40-130) Troponin T Baselin e Troponin T 120 Min estefany Delta Troponin T NT-Pro-B Natriuret Pep 151 pg/mL H pg/mL (0-125) Total Protein 6.2 g/dL L g/dL (6.6-8.7) Albumin 4.0 g/dL g/dL (3.5-5.2) Globulin 2.2 g/dL g/dL (1.3-4.6) 05/14/21 05/14/21 05/14/21 09:51 09:51 12:11 WBC RBC Hgb Hct MCV MCH MCHC RDW Plt Count MPV Neut % (Auto) Lymph % (Auto) Hettinger % (Auto) Eos % (Auto) Baso % (Auto) Neut # (Auto) Lymph # (Auto) [place] # (Auto) Eos # (Auto) Baso # (Auto) Nucleated RBC % (a uto) Nucleated RBCs # D-Dimer 1.63 ug/mIFEU H u g/mIFEU (0-0.59) Specimen Type Sample Site ABG pH ABG pCO2 ABG pO2 ABG HCO3 ABG O2 Saturation ABG Base Excess Oumar Test A-a O2 Gradient Hematocrit Hgb O2 Saturation Carboxyhemoglobin Methemoglobin Total Hemoglobin Sodium Potassium Glucose Ionized Calcium O2 Delivery Device FiO2 Pegger Dobby Looms ID Chloride Carbon Dioxide Anion Gap BUN Creatinine GFR Calculation Calculated Osmolal ity Calcium Total Bilirubin AST ALT Alkaline Phosphata se Troponin T Baselin e 13 ng/L ng/L (0-15) Troponin T 120 Min estefany 10.10 ng/L ng/L (0-15) Delta Troponin T -2.90 ABS# L ABS# (0-10) NT-Pro-B Natriuret Pep Total Protein Albumin Globulin Discharge Plan Discharge Patient Disposition: Home Clinical Impression: COPD (chronic obstructive pulmonary disease), Acute exacerbation of chronic obstructive airways disease Condition: Stable Prescriptions: New albuterol sulfate 90 mcg/actuation HFA aerosol inhaler 2 inh INHALATION Q4H PRN (Reason: shortness of breath or wheezing) Qty: 18 RF: 0 Medrol (Benny) 4 mg tablets,dose pack See Rx Instructions .ROUTE .COMPLEX Qty: 21 RF: 0 Symbicort 80-4.5 mcg/actuation HFA aerosol inhaler 2 inh inhalation BID Qty: 10.2 RF: 0 No Action glipizide 10 mg tablet 10 mg PO DAILY RF: 0 doxycycline hyclate 100 mg capsule 100 mg PO BID 7 Days Qty: 14 RF: 0 prednisone 20 mg tablet 20 mg PO BID 5 Days Qty: 10 RF: 0 Invokana 300 mg tablet 300 mg PO DAILY Qty: 90 RF: 3 tamsulosin 0.4 mg Capsule 0.4 mg PO BEDTIME RF: 0 loratadine 10 mg Tablet 10 mg PO DAILY PRN (Reason: allergies) RF: 0 Eliquis 5 mg Tablet 5 mg PO BID RF: 0 atorvastatin 40 mg Tablet 40 mg PO BEDTIME Qty: 30 RF: 0 acetaminophen 325 mg Tablet 650 mg PO Q6H PRN (Reason: Mild/Mod Pain Or Temp >/= 101) Qty: 30 RF: 0 metoprolol tartrate 25 mg Tablet 25 mg PO BID Qty: 60 RF: 0 Cardizem CD 240 mg capsule,extended release 24hr 240 mg PO DAILY Qty: 30 RF: 0 levalbuterol tartrate 45 mcg/actuation HFA aerosol inhaler 2 inh INHALATION Q6H PRN (Reason: shortness of breath or wheezing) Qty: 15 RF: 0 Discharge Orders: Discharge ED (Routine); Ordered 05/14/21 Ordered By: Ashok Dang Other Ambulatory Orders: DME: Oxygen (Order) Location: None Selected Ordered By: Ashok Dang Referrals: HurtDanielle APN [Primary Care Provider] - Discharge Diet: Usual diet Discharge Activity: Limit activity as instructed Patient Instructions: Opioid Safety Coding Level of Care Code ED Wireless Sales Representative for Jerardog Fwd Exam Comprehensive
--- NOTE | 2021-05-14 09:23 | XR_ITS ---
WS: [id number] Exam: XR chest 1V portable [id number] Date/Time of Exam: 05/14/2021 9:35 AM Reason For Exam: dyspnea/cough Comparison 05/13/2021. The lungs are hyperinflated and clear. Heart size is normal. The mediastinum is not widened. Again no sarah are changes of bullous emphysema and fibrosis in the mid and upper lung zones. Scattered calcifie d granulomas. No change since previous study. XR/XR chest 1V portable [id number] IMPRESSION: 1. No acute process identified. 2. Hyperinflation with changes of the fibrosis and bullous emphysema.
--- NOTE | 2021-05-14 09:23 | ECG_ITS ---
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 Measurements Intervals [place] Rate: 63 P: 77 IL: 147 QRS: 70 QRSD: 105 T: 69 QT: 391 QTc: 400 Interpretive Statements SINUS RHYTHM Compared to ECG 05/13/2021 13:49:48 No significant changes Electronically Signed On 05-15-2021 7:38:17 WRAPPER STRIPPER by Devante Colindres M.D. [email or web address] Motorbikespatient's choice medical center of smith countyCariloopst. elizabeth hospitalAutoniq/store/OM/[id number]
--- NOTE | 2021-05-14 09:29 | US_ITS ---
WS: [id number] Abdominal ultrasound, limited. History: Evaluate for ascites. Comparison: None. All 4 quadrants are imaged by ultrasound to evaluate for ascites. There is no peritoneal fluid identi fied. US/US abdomen lmt fluid [id number] IMPRESSION: No peritoneal ascites.
[2021-05-14 09:42] LABS: ABG PCO2 37.6 mmHg (35-45); ABG PH Result 7.42 (7.35-7.45); Alveolar-Arterial Oxygen Gradi 4.5 mmHg (5-10); Arterial Blood Gas Hematocrit 49.1 % (42-52); Base Excess ABG -0.1 mmol/L (-2.0-2.0); Blood Gas Allen Test Pos; Blood Gas Sample Type Arterial; Carboxyhemoglobin 1.5 %THgb (0.4-20.1); HCO3 ABG 24.2 mmol/L (22-26); HGB O2 Sat 92.8 % (95-100); Ionized Calcium Level - ABG 1.2 mmol/L (1.1-1.4); Methemoglobin 0.3 % (0.4-1.5); Oxygen Saturation ABG 94.5; PO2 ABG 66.6 mmHg (80.0-100.0); Potassium Level - ABG 3.9 mmol/L (3.5-5.0)
[2021-05-14 09:43] LABS: Blood Gas Operator Identificat MONRO; Blood Gas Sample Site Radial, left; Oxygen Device ROOM AIR
[2021-05-14 10:00] LABS: Basophils % 0.4 %; Eosinophils # 0.2 10^3/uL (0.0-0.8); Eosinophils % 2.6 %; Hematocrit 48.5 % (42.0-52.0); Hemoglobin 16.1 g/dL (11.7-16.6); Lymphocytes # 1.6 10^3/uL (0.8-4.8); Lymphocytes % 17.6 %; Mean Corpuscular HGB Conc 33.2 g/dL (30.0-36.0); Mean Corpuscular Hemoglobin 30.3 pg (28.0-34.0); Mean Corpuscular Volume 91.3 fl (80-94); Mean Platelet Volume 11.3 fL (7.4-10.4); Monocytes # 0.7 10^3/uL (0.2-0.9); Monocytes % 7.5 %; Neutrophils # 6.41 10^3/uL (1.8-7.7); Neutrophils % 71.3 %; Nucleated Red Blood Cells % 0 %; Platelet Count 163 10^3/cmm (130-400); Red Blood Count 5.31 10^6/uL (4.1-5.3); Red Cell Distribution Width 13.8 % (12.1-15.1)
[2021-05-14 10:02] VITALS: BP 141/90; PULSE 73; RESP 15; TEMP 37.2; O2SAT 92
[2021-05-14 10:16] LABS: D Dimer 1.63 ug/mIFEU (0-0.59)
[2021-05-14 10:19] LABS: Troponin(5th) Baseline 13 ng/L (0-15)
[2021-05-14 10:27] LABS: Alanine Aminotransferase 28 U/L (0-41); Alkaline Phosphatase 80 IU/L (40-130); Aspartate Amino Transferase 17 U/L (0-40); Blood Urea Nitrogen 18 mg/dL (8-23); Calcium 8.6 mg/dL (8.5-10.5); Carbon Dioxide 24 mmol/L (22-29); Chloride 105 mmol/L (98-107); Globulin 2.2 g/dL (1.3-4.6); Glomerular Filtration Rate 96.4 mL/min (90-130); Glucose 215 mg/dL (65-115); NT Pro B Type Natriuretic Pept 151 pg/mL (0-125); Osmolality Calculated 294 mOsm/kg (285-295); Sodium 138 mmol/L (136-145); Total Bilirubin 0.4 mg/dL (0.15-1.2); Total Protein 6.2 g/dL (6.6-8.7)
[2021-05-14 10:28] LABS: Anion Gap 13.3 (5-19); Potassium 4.3 mmol/L (3.5-5.1)
--- NOTE | 2021-05-14 10:33 | CT_ITS ---
WS: [id number] CT CHEST ANGIOGRAPHY WITH REFORMATS HISTORY: dyspnea TECHNIQUE: Contiguous axial images are obtained through the chest during arterial injection of intrav enous contrast. Images are reconstructed to evaluate the pulmonary arteries. MIP imaging also reviewe d. All CT scans at [facility] use at least one of these dose optimization techniques: automat ed exposure control; mA and/or kV adjustment per patient size (includes targeted exams where dose is matched to clinical indication); or iterative reconstruction. CONTRAST: Omnipaque 350; 95 mL IV. DLP: 379.87 mGy.cm COMPARISON: 06/13/2016 Excellent opacification of the pulmonary arteries. Bilateral lower lobe distal pulmonary arteries are obscured by motion artifact. Centrally there is no pulmonary embolism. Lobar branches and segmental branches are clear. In the subsegmental branches especially at the lung bases there is motion artifac t resulting in artifact and heterogeneity in the vessels. Lungs are hyperinflated with marked emphysema. Mild dependent changes at the lung bases. Mild atheros clerosis aorta with no aneurysm. Heart is slightly enlarged. There is very slight rotation of the hea rt clock guevara but similar to the prior examination. Paravertebral soft tissue mass centered to the LE FT of the T2-3 vertebral body was present on the prior examination with only slight increase in size now measuring 2.2 x 1.8 cm. 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 RIGHT hilar lymph node measures 11 mm and is s table. No bone destruction. No abnormality within the upper abdomen is visualized. CT/CT angio chest PE protcl [id number] IMPRESSION: 1. No central pulmonary embolism. 2. Breathing motion artifact obscuring the lower lobe subsegmental pulmonary a rteries. 3. Marked emphysema. 4. 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
[2021-05-14 10:45] VITALS: O2SAT 88; O2SAT 91; O2SAT 93
[2021-05-14 10:50] VITALS: PULSE 66; RESP 22; O2SAT 95
--- NOTE | 2021-05-14 11:23 | ECG_ITS ---
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 Measurements Intervals [place] Rate: 59 P: 62 ND: 128 QRS: 27 QRSD: 95 T: 64 QT: 418 QTc: 415 Interpretive Statements SINUS BRADYCARDIA Compared to ECG 05/14/2021 09:37:19 Sinus rhythm no longer present Electronically Signed On 05-15-2021 7:45:50 KITCHEN OPERATOR by Devante Colindres M.D. [email or web address] grenadaAusraselect medical specialty hospital - southeast ohioMediWound/store/OM/[id number]
[2021-05-14 12:16] VITALS: BP 153/81; PULSE 61; RESP 94; O2SAT 94
[2021-05-14] MEDS: iohexol 350 mg/mL 100 mL Btl IV (13:11)
[2021-05-14 14:32] VITALS: BP 148/78; PULSE 65; RESP 20; O2SAT 94
--- NOTE | 2021-05-14 14:40 | PC.NURSE ---
Disregard respiratory vitals of 05/20, they were charted errooneusly.
--- NOTE | 2021-05-18 07:46 | DCPLANNER ---
clinic manager had a message to schedule a follow up appointment for patient at [facility]. clinic manager called [facility], spoke with Monie Simmons, gave clinic patients information. A follow up appointment was scheduled for Wednesday, June 16, 2021 at 12:[address] Dick. clinic manager called phone number [phone], unable to speak with patient at this time, a voicemail was left for patient to return block and case maker phone call for appointment information. clinic manager also had order to schedule an out patient PFT for patient. clinic manager faxed signed order to centralized scheduling, who will call patient with appointment information.
--- NOTE | 2021-06-03 07:04 | DCPLANNER ---
Addendum entered by Afshan Larsen 07/08/21 17:28: Patient had a follow up appointment scheduled for 06.16.21 with PFT - patient did not attend appointment. Patient had a follow up appointment scheduled with [facility] - Dr. Dick - patient did attend appointment. Original Note: Patient has a out patient PFT scheduled for 06.16.21 at 11:15. Centralized scheduling will call patient with appointment information.
== END 2021-05-14 14:41 | disposition home or self-care (01) ==
PROVIDERS: Emergency Provider Family Medicine; PCP Nurse Practitioner Family
DX: J44.1 Chronic obstructive pulmonary disease with (acute) exacerbation (principal); Z79.01 Long term (current) use of anticoagulants; Z79.84 Long term (current) use of oral hypoglycemic drugs; E11.9 Type 2 diabetes mellitus without complications; E78.5 Hyperlipidemia, unspecified; I10 Essential (primary) hypertension; Z87.891 Personal history of nicotine dependence
CPT/HCPCS: 36415; 36600; 71045; 71275; 76705; 80051; 80053; 82330; 82805; 83880; 84484; 85025; 85378; 93005; 99283; Q9967

== ENCOUNTER → 2021-06-21 12:33 | Outpatient (BNVA) | payer OTHER, SELFPAY | PROVIDERS: PCP Nurse Practitioner Family; Visit Provider Nurse Practitioner Family | DX: Z20.822 Contact with and (suspected) exposure to COVID-19 (principal); E11.9 Type 2 diabetes mellitus without complications; I10 Essential (primary) hypertension; J06.9 Acute upper respiratory infection, unspecified; J44.1 Chronic obstructive pulmonary disease with (acute) exacerbation | CPT/HCPCS: 87635 ==

== ENCOUNTER → 2021-06-24 10:45 | Outpatient (BNVA) | payer MEDICARE, SELFPAY | PROVIDERS: PCP Nurse Practitioner Family; Visit Provider Internal Medicine Cardiovascular Disease | DX: I11.0 Hypertensive heart disease with heart failure (principal); I50.33 Acute on chronic diastolic (congestive) heart failure; J44.9 Chronic obstructive pulmonary disease, unspecified; R06.02 Shortness of breath; R07.89 Other chest pain; I48.0 Paroxysmal atrial fibrillation; E11.65 Type 2 diabetes mellitus with hyperglycemia; E78.2 Mixed hyperlipidemia; Z87.891 Personal history of nicotine dependence | CPT/HCPCS: 80048; 83880 ==

== ENCOUNTER 2021-07-05 08:44 | Outpatient (CLI) | payer MEDICARE, SELFPAY ==
[2021-07-05 09:00] VITALS: BMI 27.3
--- NOTE | 2021-07-05 09:12 | ECG_ITS ---
[facility] Test Date: 2021-07-05 Pat Name: Ralph Matta Department: Room: Gender: Male Choirmaster: Bridget Mckinnon : 1955 Requested By: Minal Romero Order Number: [id number] Patti MD: Mary Moore M.D. Interpretive Statements NAME OF STUDY: LEXISCAN SESTAMIBI STRESS TEST INDICATION: Chest pain, Shortness of breath PROCEDURE: At the baseline, the blood pressure was 156/93 mm Hg, oxygen saturation of 93% with a heart rate of 73 bpm. The electrocardiogram showed sinus rhythm, normal axis and poor anterior R wave progression. ??? The Lexiscan was infused over a period of 20 seconds. A total of 0.4 milligrams of Lexiscan was infused. The stress phase was continued for a total of 5 minutes. Heart rate at the end of the stress phase was 86 bpm, oxygen saturation of 94% with a blood pressure of 130/84 mm Hg. The EKG at the peak infusion revealed sinus rhythm with no significant ST-T wave changes. The study was terminated due to protocol completion. ??? Sestamibi was injected 20 seconds after the Lexiscan infusion. ??? Blood pressure at the end of the recovery phase was 148/86 mm Hg with a heart rate of 101 beats per minute and oxygen saturation of 93%. Isolated PAC's noted with lexiscan infusion and in recovery. ??? CONCLUSION: 1. No significant EKG changes with the LexiScan infusion. 2. No LexiScan induced chest pain or cardiac arrhythmia. 3. Normal blood pressure and heart rate response. 4. Sestamibi/sestamibi perfusion scan pending; see separate report. Electronically Signed On 07-09-2021 11:11:34 LAMP DEVELOPER by Mary Moore M.D. [id number]
--- NOTE | 2021-07-05 09:13 | NMCV_ITS ---
NM cristhian perf SPECT r/s* [id number] Ralph Matta Age: 65 Gender: M : 1955 Exam Date: 07/05/2021 09:13 Ordering Phys: Minal Romero MD ([email or web address]) Technologist: MILES Trevino Exam Location: [facility] Indications: SHORTNESS OF BREATH STRESS TEST Please see separate stress test report in Eph[facility]any for full findings IMAGE PROTOCOL Rest/Stress 1 Lexiscan Day Radiopharmaceutical Dose (mCi) Administration Site Administered by Rest: Tc-99m 10.6 IV MILES Parker Sestamibi Stress:Tc-99m 32.9 IV MILES Parker Sestamibi Rest: 05-Jul-2021 60 Discovery 630 Stress: 05-Jul-2021 30 Discovery 630 0.4mg Lexiscan. Images obtained in supine and prone position. SPECT RESULTS Technical Quality: Excellent Raw Data Analysis: Normal Image Corrections: No attenuation or motion correction applied Summed Stress Score: 5 Summed Rest Score: 0 Summed Difference Score: 5 PERFUSION FINDINGS Small sized perfusion abnormality of mild severity of basal to mid inferior wall , basal inferolateral alberts on rest images with reversibility in basal to mid inferolateral alberts on supine stress images. There is improved tracer uptake in inferior and inferolateral alberts on prone stress images. FUNCTIONAL RESULTS (calculated via Gated SPECT) Stress Image LV EF (%): 32 Stress EDV (mL):91 TID: 0.69 Stress ESV (mL):62 FUNCTIONAL FINDINGS: The left ventricle is normal in size. Transient Ischemia Dilatation of 0.69. There is moderately reduced left ventricular global systolic function. The left ventricular ejection fraction is reduced with a value of 32%. There is moderately decreased wall thickening. IMPRESSIONS 1. Small sized perfusion abnormality of mild severity of basal to mid inferior wall , basal inferolateral alberts with reversibility in basal to mid inferolateral alberts. 2. This is suggestive of old myocardial infarction with small area of ann marie- infarct ischemia in circumflex artery territory. 3. There is moderately reduced left ventricular global systolic function, LVEF= 32%. 4. There is moderately decreased wall thickening. 5. The perfusion pattern may be consistent with an ischemic cardiomyopathy. Mary Moore MD (Electronically Signed) Final Date: 08 July 2021 10:28 S
[2021-07-05] MEDS: regadenoson 0.4 Mg/5 ml Syringe IVP (10:27)
[2021-07-05 10:37] VITALS: BP 148/86; PULSE 87
== END 2021-07-05 08:45 | disposition home or self-care (01) ==
PROVIDERS: PCP Nurse Practitioner Family; Visit Provider Internal Medicine Cardiovascular Disease
DX: R07.9 Chest pain, unspecified (principal); R06.02 Shortness of breath; I25.9 Chronic ischemic heart disease, unspecified
CPT/HCPCS: 78452; 93017; A9500; J2785

== ENCOUNTER → 2021-07-12 08:45 | Outpatient (BNVA) | payer MEDICARE, SELFPAY | PROVIDERS: PCP Nurse Practitioner Family; Visit Provider Internal Medicine Cardiovascular Disease | DX: E78.1 Pure hyperglyceridemia (principal); E78.5 Hyperlipidemia, unspecified; I10 Essential (primary) hypertension; E11.9 Type 2 diabetes mellitus without complications; I48.91 Unspecified atrial fibrillation | CPT/HCPCS: 80048; 83880 ==

== ENCOUNTER → 2021-09-20 10:44 | Outpatient (BNVA) | payer MEDICARE, SELFPAY | PROVIDERS: PCP Nurse Practitioner Family; Visit Provider Internal Medicine Cardiovascular Disease | DX: R55 Syncope and collapse (principal); R94.39 Abnormal result of other cardiovascular function study; I48.20 Chronic atrial fibrillation, unspecified; Z79.01 Long term (current) use of anticoagulants; I25.5 Ischemic cardiomyopathy; E78.2 Mixed hyperlipidemia; E11.65 Type 2 diabetes mellitus with hyperglycemia; I10 Essential (primary) hypertension; Z79.82 Long term (current) use of aspirin; Z87.891 Personal history of nicotine dependence | CPT/HCPCS: 99214 ==

== ENCOUNTER 2021-09-29 08:39 | Outpatient (CLI) | payer MEDICARE, SELFPAY ==
--- NOTE | 2021-09-29 08:52 | MR_ITS ---
WS: [id number] MRI THORACIC SPINE WITH CONTRAST TECHNIQUE: Sagittal T1, T2 and STIR imaging. Axial T2 imaging. Post gadolinium imaging was obtained. CLINICAL INFORMATION: referred to neurosurgeon but requires MRI prior to seeing Pt COMPARISON: CTA chest May 14, 2021 FINDINGS: Mild thoracic curve. No acute compression. No high-grade central canal stenosis. Cord signal is phu l. No significant disc protrusions or extrusions. Again seen is the LEFT paravertebral soft tissue lesion at the T2-T3 level measuring 2.4 x 2.5 x 1.9 cm AP by transverse by craniocaudal. Diffuse homogeneous enhancement. This extends towards the LEFT T 2-T3 neural foramen and suspicious for nerve sheath tumor. No significant foraminal expansion. No oth er enhancing lesions. Normal caliber thoracic aorta. Mild facet arthropathy in the lower thoracic spine. MR/MR thoracic spine wo/w [id number] IMPRESSION: 1. Enhancing paravertebral soft tissue lesion at the T2-T3 level appears to in volve the exiting extraforaminal nerve roots at this level. No significant fora salud expansion. This extends towards the neural foramen suspicious for a nerve sheath tumor. 2. Mild thoracic curve. No acute compression. No high-grade central canal sten osis. 3. Cord signal is normal. 4. No other acute findings.
[2021-09-29] MEDS: gadobenate dimeglumine 20 mL vial IV (09:48)
== END 2021-09-29 08:40 | disposition home or self-care (01) ==
LOC: RAD 08:41
PROVIDERS: PCP Nurse Practitioner Family; Visit Provider Internal Medicine Pulmonary Disease
DX: D44.7 Neoplasm of uncertain behavior of aortic body and other paraganglia (principal)
CPT/HCPCS: 72157

== ENCOUNTER 2021-10-04 09:16 | Emergency (ER) | payer MEDICARE, SELFPAY ==
[2021-10-04] VITALS (7 sets, daily range): BP systolic 139–178; BP diastolic 74–105; PULSE 50–65; RESP 16–23; TEMP 36.4; O2SAT 91–95; BMI 27.3
--- NOTE | 2021-10-04 09:34 | XRR_ITS ---
PROCEDURE INFORMATION: Exam: XR Chest Exam date and time: 10/04/2021 9:46 AM Age: 65 years old Clinical indication: Pain; Angina pectoris; Patient HX: --heart monitor x 2 wks. Scheduled for heart cath. ; Additional info: Chest pain TECHNIQUE: Imaging protocol: XR of the chest. Views: 1 view. Total images: 1 COMPARISON: CR XR chest 1V portable [id number] 05/14/2021 9:30 AM FINDINGS: Lungs: Benign granulomatous disease of the lung is noted. Hyperinflation with prominent interstitial markings suggesting COPD changes. Pleural spaces: Unremarkable. No pleural effusion. No pneumothorax. Heart/Mediastinum: Unremarkable. No cardiomegaly. Bones/joints: Osseous structures are unchanged from the prior exam. XR/XR chest 1V portable [id number] IMPRESSION: 1. Hyperinflation with prominent interstitial markings suggesting COPD changes. 2. No acute cardiopulmonary process.
--- NOTE | 2021-10-04 09:35 | ECG_ITS ---
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 Measurements Intervals [place] Rate: 54 P: 86 OK: 160 QRS: 61 QRSD: 93 T: 68 QT: 411 QTc: 392 Interpretive Statements SINUS BRADYCARDIA Compared to ECG 05/14/2021 12:05:49 No significant changes Electronically Signed On 10-04-2021 16:32:15 CDT by Karson Espinosa M.D. [id number]
[2021-10-04] MEDS: aspirin 81 mg Chew Tablet 324 MG PO (09:52)
[2021-10-04 09:59] LABS: Basophils % 0.5 %; Eosinophils # 0.3 10^3/uL (0.0-0.8); Hematocrit 45.7 % (42.0-52.0); Hemoglobin 15.3 g/dL (11.7-16.6); Lymphocytes # 1.8 10^3/uL (0.8-4.8); Lymphocytes % 23.6 %; Mean Corpuscular HGB Conc 33.5 g/dL (30.0-36.0); Mean Corpuscular Hemoglobin 30.5 pg (28.0-34.0); Mean Platelet Volume 10.8 fL (7.4-10.4); Monocytes # 0.7 10^3/uL (0.2-0.9); Monocytes % 9.5 %; Neutrophils # 4.77 10^3/uL (1.8-7.7); Neutrophils % 61.9 %; Nucleated Red Blood Cells % 0 %; Platelet Count 172 10^3/cmm (130-400); Red Blood Count 5.02 10^6/uL (4.1-5.3); Red Cell Distribution Width 13.7 % (12.1-15.1); White Blood Count 7.7 10^3/uL (4.0-10.0)
[2021-10-04 10:19] LABS: Troponin(5th) Baseline 10 ng/L (0-15)
[2021-10-04 10:26] LABS: Alanine Aminotransferase 18 U/L (0-41); Albumin Level 4.2 g/dL (3.5-5.2); Alkaline Phosphatase 83 IU/L (40-130); Anion Gap 16.5 (5-19); Aspartate Amino Transferase 14 U/L (0-40); Blood Urea Nitrogen 22 mg/dL (8-23); Calcium 8.5 mg/dL (8.5-10.5); Carbon Dioxide 21 mmol/L (22-29); Chloride 103 mmol/L (98-107); Globulin 2.2 g/dL (1.3-4.6); Glomerular Filtration Rate 74.5 mL/min (90-130); Glucose 163 mg/dL (65-115); NT Pro B Type Natriuretic Pept 350 pg/mL (0-125); Osmolality Calculated 289 mOsm/kg (285-295); Potassium 4.5 mmol/L (3.5-5.1); Sodium 136 mmol/L (136-145); Total Bilirubin 0.3 mg/dL (0.15-1.2); Total Protein 6.4 g/dL (6.6-8.7)
--- NOTE | 2021-10-04 10:43 | W.ED.SOB ---
HPI - SOB/Dyspnea General: Chief Complaint: Shortness of Breath/Dyspnea Stated Complaint: SOB Time Seen by Provider: 10/04/21 09:32 Source: patient Mode of arrival: ambulatory History of Present Illness: HPI Narrative: 65-year-old male presents emergency room complaining of shortness of breath last couple of weeks he states is worse this morning. Is currently wearing a Holter monitor he did have a stress test recently which showed an ejection fraction of 33% at some old infarcts and some ann marie-infarct ischemia and global ischemic cardiomyopathy. They are trying to get him scheduled for a cardiac stress test but it has not yet been scheduled. He has not had any chest pain today. He has not had a productive cough or fever. He has some moderate orthopnea which is about his normal baseline otherwise unchanged. Exacerbation worsens his chest pain and rest improves it. MD elicited complaint: shortness of breath Pertinent past history: congestive heart failure Onset (ago): minute(s) Context: occurred during exertion Timing: intermittent Severity: moderate Exacerbating factors: lying flat and exertion Known history of: congestive heart failure (Ischemic cardiomyopathy) Associated symptoms: Deny abdominal pain, chest congestion, chest pain, cough, diaphoresis, dizziness, extremity pain, fever(s), hemoptysis, lightheadedness, myalgias, nausea, orthopnea, palpitations, paresthesias, polydipsia, polyuria, rash, sense of impending doom, syncope or vomiting Treatment prior to arrival: none Review of Systems Const: Denies: fever(s), chills or diaphoresis ENMT: Denies: throat pain, ear or mastoid pain, nasal discharge or nasal congestion Card: Denies: chest pain, palpitations, lightheadedness, syncope or orthopnea Resp: Reports: dyspnea; Denies: productive cough, non-productive cough, wheezing, hemoptysis or chest congestion GI: Denies: abdominal pain, nausea or vomiting : Denies: flank pain, dysuria, urinary frequency or urinary urgency Musc: Denies: extremity pain Skin/Breast: Denies: rash or pruritus Neuro: Denies: dizziness Endo: Denies: polyuria or polydipsia PFS ED PFSH: Medical History Atrial fibrillation COPD (chronic obstructive pulmonary disease) Diabetes mellitus Erectile dysfunction Hyperlipidemia Hypertension Hypertriglyceridemia Surgical History S/P colonoscopic polypectomy Family History Father CAD (coronary artery disease), Onset Age: 50 Cancer Lung disease Mother Hyperlipidemia Hypertension Denies family history of Diabetes Clotting disorder Dementia Psychiatric illness Chronic kidney disease (CKD) Suicide Anesthesia complication Bleeding disorder Family history of premature coronary artery disease Social History Smoking and tobacco status: former smoker Quit status (tobacco): has quit using tobacco Year quit tobacco: 2011 Former quit date comment: 2ppd x 42 years Alcohol intake: never Physical Exam Const: COMMON NORMALS: no acute distress GENERAL APPEARANCE: cooperative and comfortable ORIENTATION/CONSCIOUSNESS: Yes awake, Yes oriented to person, Yes oriented to place and Yes oriented to time HENMT: COMMON NORMALS: normocephalic, atraumatic and hearing grossly normal bilaterally HEAD & SCALP: normocephalic and atraumatic Neck/C-Spine: COMMON NORMALS: no JVD Resp: COMMON NORMALS: normal respiratory effort, No retractions, No use of accessory muscles and clear to auscultation bilaterally AUSCULTATION: clear to auscultation bilaterally Cardio: COMMON NORMALS: no JVD, regular rate, regular rhythm and No murmurs present (Cardio) RATE: regular rate RHYTHM: regular rhythm GI: COMMON NORMALS: Soft to palpation and No hepatosplenomegaly present AUSCULTATION: Yes normoactive bowel sounds PALPATION: Yes Soft to palpation, No Tenderness to palpation present (GI), No Guarding due to palpation present (GI) and Yes No hepatosplenomegaly present Extremity: COMMON NORMALS: normal to inspection, capillary refill normal, no clubbing, cyanosis or edema, no calf tenderness and no pedal edema Neuro: SENSORIUM/ORIENTATION: Yes oriented to person, Yes oriented to place and Yes oriented to time Skin: COMMON NORMALS: no rashes or lesions noted GENERAL SKIN EXAM: no rashes or lesions noted Course Vital Signs: Vital signs: Vital Signs Temperature 97.6 F 10/04/21 09:20 Pulse Rate 54 L 10/04/21 12:37 Respiratory Rate 19 H 10/04/21 12:37 Blood Pressure 139/90 10/04/21 12:37 Pulse Oximetry 94 10/04/21 12:37 MDM - SOB/Dyspnea Medical Decision Making Called discussed with cardiology they recommend scheduling an outpatient echo and follow-up in the office at this time he does not have any signs of decompensated heart failure his BNP is better his chest x-ray does not showAny acute congestive heart failure. Clinically does not appear to be in failure he describes some orthopneic-like symptom with a have not really changed and he is able to sleep in the left lateral recumbent position. Have him contact Dr. Romero's office to make a short-term follow-up. I called and talked with Dr. Romero today they are going to try to get the heart cath approved. Medical Records I reviewed the patient's medical records. Lab Data I reviewed the patient's lab results. : 10/04/21 09:45 10/04/21 09:45 Labs/Radiology: Radiology Impressions Chest X-Ray 10/04/21 09:34 IMPRESSION: 1. Hyperinflation with prominent interstitial markings suggesting COPD changes. 2. No acute cardiopulmonary process. Laboratory Results WBC 7.7 10^3/uL (4.0-10.0) 10/04/21 09:45 RBC 5.02 10^6/uL (4.1-5.3) 10/04/21 09:45 Hgb 15.3 g/dL (11.7-16.6) 10/04/21 09:45 Hct 45.7 % (42.0-52.0) 10/04/21 09:45 MCV 91.0 fl (80-94) 10/04/21 09:45 MCH 30.5 pg (28.0-34.0) 10/04/21 09:45 MCHC 33.5 g/dL (30.0-36.0) 10/04/21 09:45 RDW 13.7 % (12.1-15.1) 10/04/21 09:45 Plt Count 172 10^3/cmm (130-400) 10/04/21 09:45 MPV 10.8 fL (7.4-10.4) H 10/04/21 09:45 Neut % (Auto) 61.9 % 10/04/21 09:45 Lymph % (Auto) 23.6 % 10/04/21 09:45 [place] % (Auto) 9.5 % 10/04/21 09:45 Eos % (Auto) 4.0 % 10/04/21 09:45 Baso % (Auto) 0.5 % 10/04/21 09:45 Neut # (Auto) 4.77 10^3/uL (1.8-7.7) 10/04/21 09:45 Lymph # (Auto) 1.8 10^3/uL (0.8-4.8) 10/04/21 09:45 [place] # (Auto) 0.7 10^3/uL (0.2-0.9) 10/04/21 09:45 Eos # (Auto) 0.3 10^3/uL (0.0-0.8) 10/04/21 09:45 Baso # (Auto) 0.0 10^3/uL (0.0-0.1) 10/04/21 09:45 Nucleated RBC % (auto) 0 % 10/04/21 09:45 Nucleated RBCs # 0.0 /100WBC 10/04/21 09:45 Sodium 136 mmol/L (136-145) 10/04/21 09:45 Potassium 4.5 mmol/L (3.5-5.1) 10/04/21 09:45 Chloride 103 mmol/L (98-107) 10/04/21 09:45 Carbon Dioxide 21 mmol/L (22-29) L 10/04/21 09:45 Anion Gap 16.5 (5-19) 10/04/21 09:45 BUN 22 mg/dL (8-23) 10/04/21 09:45 Creatinine 1.0 mg/dL (0.7-1.2) 10/04/21 09:45 GFR Calculation 74.5 mL/min (90-130) L 10/04/21 09:45 Glucose 163 mg/dL (65-115) H 10/04/21 09:45 Calculated Osmolality 289 mOsm/kg (285-295) 10/04/21 09:45 Calcium 8.5 mg/dL (8.5-10.5) 10/04/21 09:45 Total Bilirubin 0.3 mg/dL (0.15-1.2) 10/04/21 09:45 AST 14 U/L (0-40) 10/04/21 09:45 ALT 18 U/L (0-41) 10/04/21 09:45 Alkaline Phosphatase 83 IU/L (40-130) 10/04/21 09:45 Troponin T Baseline 10 ng/L (0-15) 10/04/21 09:45 Troponin T 120 Minute 9.88 ng/L (0-15) 10/04/21 11:37 Delta Troponin T -0.12 ABS# (0-10) L 10/04/21 11:37 NT-Pro-B Natriuret Pep 350 pg/mL (0-125) H 10/04/21 09:45 Total Protein 6.4 g/dL (6.6-8.7) L 10/04/21 09:45 Albumin 4.2 g/dL (3.5-5.2) 10/04/21 09:45 Globulin 2.2 g/dL (1.3-4.6) 10/04/21 09:45 Discharge Plan Discharge Patient Disposition: Home Clinical Impression: Ischemic cardiomyopathy, Hypertension, Diabetes mellitus, Atrial fibrillation, COPD (chronic obstructive pulmonary disease), CHF (congestive heart failure) Condition: Stable Prescriptions: No Action aspirin 325 mg tablet 325 mg PO DAILY PRN (Reason: fever or pain) 0RF glipizide 10 mg tablet extended release 24hr 10 mg PO BID 0RF Jardiance 25 mg tablet 25 mg PO DAILY 0RF escitalopram oxalate 20 mg tablet 10 mg PO .every other day 0RF metoprolol tartrate 25 mg tablet 100 mg PO BID 0RF Trelegy Ellipta 100-62.5-25 mcg blister with device 1 inh inhalation DAILY 0RF omega-3 acid ethyl esters 1 gram capsule 1 cap PO DAILY 0RF lisinopril 20 mg tablet 20 mg PO BID 0RF formoterol fumarate [Perforomist] 20 mcg/2 mL solution for nebulization 2 ml inhalation BID Qty: 120 5RF Yupelri 175 mcg/3 mL solution for nebulization 175 mcg inhalation DAILY Qty: 90 5RF potassium chloride [Klor-Con 8] 8 mEq tablet extended release 8 meq PO DAILY Qty: 90 3RF ipratropium-albuterol 0.5 mg-3 mg(2.5 mg base)/3 mL solution for nebulization 3 ml inhalation Q6H PRN (Reason: wheezing) Qty: 180 5RF furosemide [Lasix] 20 mg tablet 20 mg PO DIRECTED Qty: 100 3RF Rx Instructions: Take 2 tabs daily x 5 days, then 1 tab daily thereafter atorvastatin 20 mg tablet 20 mg PO DAILY Qty: 90 3RF clopidogrel [Plavix] 75 mg tablet 75 mg PO DIRECTED Qty: 5 0RF Rx Instructions: Take 4 tabs the evening prior to LHC, then 1 tab the morning of LHC with 4 tabs of Aspirin 81mg budesonide [Pulmicort] 0.5 mg/2 mL suspension for nebulization 0.5 mg inhalation BID Qty: 120 5RF isosorbide mononitrate 30 mg tablet extended release 24 hr 30 mg PO DAILY Qty: 90 1RF Rx Instructions: Start taking 1 tab daily, gradually increasing to 2 tabs daily amiodarone 200 mg tablet 400 mg PO BID Qty: 360 3RF albuterol sulfate 90 mcg/actuation HFA aerosol inhaler 2 inh INHALATION Q4H PRN (Reason: shortness of breath or wheezing) Qty: 18 0RF tamsulosin 0.4 mg Capsule 0.4 mg PO BEDTIME 0RF Eliquis 5 mg Tablet 5 mg PO BID 0RF acetaminophen 325 mg Tablet 650 mg PO Q6H PRN (Reason: Mild/Mod Pain Or Temp >/= 101) Qty: 30 0RF Discharge Orders: Discharge ED (Routine); Ordered 10/04/21 Ordered By: Ashok Dang Referrals: Danielle Hurt APN [Primary Care Provider] - Discharge Diet: Usual diet Discharge Activity: Limit activity as instructed Patient Instructions: Opioid Safety Activity Restrictions/Additional Instructions: 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 Call Dr. Romero's office to set up follow-up as soon as you are able return to the ER if you have any further problems. Use oxygen as needed. Coding Level of Care Code ED Remote Sensing Technician for Kahlil Ny Exam Comprehensive
--- NOTE | 2021-10-04 11:18 | PC.NURSE ---
PTS O2 SATING AT 88-91; PUT PT ON 2L NC. NOW SATING AT 95%.
--- NOTE | 2021-10-04 11:35 | ECG_ITS ---
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 Measurements Intervals [place] Rate: 52 P: 77 MS: 158 QRS: 49 QRSD: 92 T: 69 QT: 416 QTc: 390 Interpretive Statements SINUS BRADYCARDIA POSSIBLE ANTERIOR MYOCARDIAL INFARCTION , OF INDETERMINATE AGE [30 ms Q WAVE IN V3/V4, OR R < 0.2 mV IN V4] Compared to ECG 10/04/2021 09:55:16 Myocardial infarct finding now present Electronically Signed On 10-04-2021 16:36:31 CDT by Karson Espinosa M.D. [email or web address]
[2021-10-04 12:12] LABS: Troponin 5 2HR 9.88 ng/L (0-15)
[2021-10-04 12:28] LABS: Troponin 5 2HR Delta -0.12 ABS# (0-10)
== END 2021-10-04 14:12 | disposition home or self-care (01) ==
PROVIDERS: Emergency Provider Family Medicine; PCP Nurse Practitioner Family
DX: I25.5 Ischemic cardiomyopathy (principal); I11.0 Hypertensive heart disease with heart failure; I50.9 Heart failure, unspecified; I48.91 Unspecified atrial fibrillation; E11.9 Type 2 diabetes mellitus without complications; J44.9 Chronic obstructive pulmonary disease, unspecified; Z87.891 Personal history of nicotine dependence; Z79.01 Long term (current) use of anticoagulants; Z79.02 Long term (current) use of antithrombotics/antiplatelets; Z79.84 Long term (current) use of oral hypoglycemic drugs; Z79.82 Long term (current) use of aspirin
CPT/HCPCS: 71045; 80053; 83880; 84484; 85025; 93005; 99284

== ENCOUNTER → 2021-10-06 10:31 | Outpatient (BNVA) | payer MEDICARE, SELFPAY | PROVIDERS: PCP Nurse Practitioner Family; Visit Provider Internal Medicine Cardiovascular Disease | DX: R94.39 Abnormal result of other cardiovascular function study (principal); I25.5 Ischemic cardiomyopathy; I11.0 Hypertensive heart disease with heart failure; I50.9 Heart failure, unspecified; R55 Syncope and collapse; I48.91 Unspecified atrial fibrillation; Z79.01 Long term (current) use of anticoagulants; R07.89 Other chest pain; Z87.891 Personal history of nicotine dependence | CPT/HCPCS: 36415; 80048; 85025; 85610; 86850; 86900; 99214 ==

== ENCOUNTER 2021-10-08 10:56 | Outpatient (CLI) | payer MEDICARE, SELFPAY ==
[2021-10-08] VITALS (21 sets, daily range): BP systolic 138–170; BP diastolic 80–108; PULSE 54–71; RESP 15–24; TEMP 36.7–36.8; O2SAT 92–95; BMI 27.1
--- NOTE | 2021-10-08 07:30 | XACV_ITS ---
Exam Room: 2 Ht: 175 cm Wt: 83 kg BSA: 2.03 m2 Gender: Male : 1955 Any Known Allergies: Other Exam Priority: Routine Procedure(s): Procedure Description: Diagnostic procedure Procedure Description: Left Heart Catheterization Procedure Description: Left ventriculography Procedure Description: Coronary Angiography Procedure Description: Pressure Wire Nick BARRERA; Diagnostic Cath Status: Elective Diagnostic Findings * Left anterior descending artery. * The left main is a medium caliber vessel with no significant stenotic lesions. * The left anterior descending artery is a medium caliber vessel which appears to wrap around the LV apex minimally. The first diagonal branch was found to have around 50 to 60% diffuse narrowing proximally. The mid LAD was found to have 20 to 30% diffuse narrowing. No other significant stenotic lesions were noted.. * The left circumflex artery is a medium caliber nondominant vessel which appears to bifurcate proximally giving off 2 obtuse marginal branches. The AV groove branch appears to be rudimentary. The proximal circumflex artery was found to mild diffuse intimal irregularities. The second obtuse marginal artery was found to have around 50 to 60% diffuse irregular narrowing proximally.. * The right coronary artery is a medium caliber dominant vessel which was found to have mild diffuse narrowing proximally. Right after the RV branch, the artery appears to have around 40% segmental narrowing. The PDA branch was found to have around 40 to 50% diffuse regular narrowing in the proximal and the mid segment. No other significant stenotic lesions were noted. Interventional Findings * I was asked to perform IFR on the diagonal branch and the second obtuse marginal branch. The IFR of the diagonal branch is 0.95. The IFR of the second marginal branch is 0.97. Therefore, neither vessel was intervened upon. Conclusions 1. 65-year-old white male with history of hypertension, dyslipidemia, COPD and type 2 diabetes, presented with progressive shortness of breath and chest discomfort. He was found to have features of congestive heart failure. He had a myocardial perfusion imaging which revealed an LV ejection fraction of 32%. There was small areas of reversible defect in the distribution of the left circumflex artery/left and descending artery. Because of the patient's worsening symptoms, in order to further evaluate his coronary status, a cardiac catheterization was recommended. Patient underwent left heart catheterization with a left and right coronary angiogram and LV angiogram today. The findings are as follows.. 2. Left main was found to have no significant disease. Left anterior descending artery had mild disease in the midsegment. The first diagonal branches found to have around 50 to 60% diffuse narrowing in the proximal segment. Circumflex artery was found to have mild disease proximally. The second obtuse marginal artery was found to have around 50 to 60% irregular diffuse narrowing in the proximal segment. The right coronary artery also was found to have mild disease. LV ejection fraction was 45%. LVEDP of 24 mmHg. Based on the angiogram findings and also myocardial perfusion imaging findings, it was thought to be appropriate to consider IFR of the circumflex and diagonal artery lesions. These were performed by Dr. Espinosa. The IFR was above 0.95 at both these sites. Based on this, it was decided to treat the patient medically.. Interventional RX Recommendation: other cardiac therapy w/o CABG/PCI Ventriculography Ejection Fraction: 45.0 % LV EDP: 24 mmHg Left Ventriculography Findings: * LV gram was performed in the ROCA projection. The LV cavity appears to be mildly dilated. The LV ejection fraction was around 45%. Mild diffuse hypokinesia of the left ventricle was noted. No severe mitral valve prolapse or any mitral regurgitations. No filling defects were noted. Pressures Phase:Rest AO : 158 / 84 ( 116 ) @ 2:13:00 PM 157 / 82 ( 115 ) @ 2:13:00 PM LV : 151 / 2 / 20 @ 2:11:00 PM 160 / 1 / 24 @ 2:11:00 PM 167 / 0 / 25 @ 2:12:00 PM 168 / 2 / 26 @ 2:13:00 PM Valves Phase:DefaultPhase AV : 10.0 @ 2:01:38 PM AV Mean Gradient: 11.0 @ 2:01:38 PM Clinical Evaluation EBL: 5mL-10mL Procedural Details Procedure Consent Obtained. Admit Source: Out Patient. Physician arrived. Pre-Procedure Time Out. Identified patient by full name and date of as verbalized by the patient/guarantor. Does the consent match the physician's order: Yes. Accurate & Complete Informed Consent: Yes. Inpatient/Outpatient History & Physical on Chart: Yes. If H&P is completed, is and addenduem needed: No; If yes, is the addendum complete: No. Visualize and Verify Site with Patient/Guarantor: N/A. Relevant Radiology Images available: No. The risks, benefits, and alternatives of sedation and/or procedure were discussed by physician. The patient agrees to continue. Procedure started. [facility] Clinical Fraility Score: 3: Managing Well. Annual Giving Director Indications: Worsening Angina, Arrythmia. Chest Pain Symptom Assessment: Typical Angina Symptoms. Correct patient, site and procedure confirmed by cath team. Current diagnosis: Chest Pain, Arrythmia. PERRLA. Strong, equal hand dermatologist managing partner bilaterally. Lungs clear x 5 lobes. IV Site on Arrival: 20 gauge in the right anticubital. IV Fluids: 0.9% NaCl at KVO. 0 mL infused prior to cathead worker. Pre Procedural Pulses: bilateral dorsalis pedis was 3+. Pre Procedural Pulses: bilateral radial was 3+. Pre Procedural Pulses: bilateral posterior tibial was 2+. Oxygen started at 2liters/min via nasal canula. right radial was prepped with chloroprep then draped in the usual sterile fashion. Physician notified. Baseline sample Acquired. HR: 74 BPM. Physician scrubbed in. Immediate Pre-Procedure Time Out. Correct Patient: Yes; Correct Procedure: Yes; Correct Site: Yes; Correct Patient Position: Yes; Correct Supplies: Yes; Dried Flammable Prep: Yes; Blood Products Available: No;. Lidocaine 1% infiltrated to the right groin. Arterial access obtained. A 5 peruvian Doyle catheter in over wire. Wire out. Multiple views taken of left coronary artery. Catheter redirected to the RCA. Catheter removed over the standard wire. A 5 peruvian JR4 catheter in over wire. Wire out. Catheter directed to the RCA. Multiple views taken of right coronary artery. Catheter removed over the standard wire. A 5 peruvian Angled Pig catheter in over wire. EDP Sample taken: LV 151/2,20; HR: 73 BPM; SpO2: 96%. EDP Sample taken: LV 160/1,24; HR: 70 BPM; SpO2: 96%. LV gram performed in ROCA @ 10 mL/second for a total of 30 mL. EDP Sample taken: LV 167/0,25; HR: 75 BPM; SpO2: 95%. Pullback taken: LV 168/2,26; AO 158/84(116); Mean: 11mmHg, Peak to Peak: 10mmHg, SEP: 22sec/min; HR: 76 BPM; SpO2: 94%. Dr. Espinosa called to cathead worker to review cine films. Physician scrubbed out. Dr. Espinosa and Dr. Romero reviewed cine films. scrubbed in to perform intervention. 6 peruvian XB 3 guide catheter was inserted over the wire. Standard wire out. IFR wire advanced through guide catheter. IFR wire seated distal to proximal diagonal branch. Proximal 1st Diagonal branch IFR result 0.95. IFR wire redirected to second Obtuse marginal. IFR result of second obtuse marginal 0.97. Physician scrubbed out. A TR Band was successful obtaining hemostatsis at the Right Radial artery insertion site. Post Procedure: Pulses reassessed and unchanged. PERRLA. Strong, equal hand dermatologist managing partner bilaterally. No VTE prophylaxis required. Medication's Wasted: Lidocaine 1% = 6 mL. Medication's Wasted: Nitro = 49.8 mg. Medication's Wasted: Heparin = 1000 unit. Total IV fluids: 95 mL. Post-op diagnosis: Moderate Non-obstructive 2 vessel disease. Complications: None. Estimated blood loss: 5mL-10mL. Responsiveness - Normal response to verbal stimuli; alert and oriented, PERRLA. Airway - Unaffected, no intervention required; spontaneous ventilation. Circulation: W/N/L, pulses unchanged. Nausea/Vomiting: No. Procedure completed. Patient transferred by wheelchair to 1st floor. Vital chart was stopped. Procedure started. Access Site Site: Right Radial artery Sheath Size: 6 Fr Hemostasis Method: TR Band Hemostasis Success: Successful Procedure Medications Start: 12:39 PM Stop: 12:39 PM Medication: Versed Amount: 1 mg Route: I.V. Start: 12:39 PM Stop: 12:39 PM Medication: Fentanyl Amount: 50 mcg Route: I.V. Start: 12:49 PM Stop: 12:49 PM Medication: Versed Amount: 1 mg Route: I.V. Start: 12:53 PM Stop: 12:53 PM Medication: Verapamil Amount: 5 mg Route: I.A. Start: 12:54 PM Stop: 12:54 PM Medication: Nitrogylcerin Amount: 200 mcg Route: I.A. Start: 12:54 PM Stop: 12:54 PM Medication: Versed Amount: 1 mg Route: I.V. Start: 12:54 PM Stop: 12:54 PM Medication: Fentanyl Amount: 25 mcg Route: I.V. Start: 12:58 PM Stop: 12:58 PM Medication: Heparin Amount: 5000 units Route: I.V. Start: 1:31 PM Stop: 1:31 PM Medication: Versed Amount: 1 mg Route: I.V. Start: 1:31 PM Stop: 1:31 PM Medication: Fentanyl Amount: 25 mcg Route: I.V. I, the attending physician, have reviewed and verified all procedure medications. Yes, all medications given per verbal order History/Risk Factors Hypertension: Yes Dyslipidemia: No Peripheral Arterial Disease (PAD): Yes Myocardial Infarction (DC): No Obesity: No Renal Disease: No Tobacco Use: Former Prior Interventions PCI: No CABG: No Valve Surgery: No Report Signatures Diagnostic Workflow Finalized by Dr Minal Romero MD [facility] on 10/08/2021 07:08 PM Interventional Workflow Finalized by Dr. Karson Espinosa MD on 10/08/2021 02:06 PM
[2021-10-08] MEDS: diphenhydrAMINE 50 mg Capsule PO (11:20)
[2021-10-08] MEDS: metoprolol tartrate 50 mg Tablet 100 MG PO (12:16)
[2021-10-08] MEDS: lisinopril 20 mg Tablet PO (12:17)
--- NOTE | 2021-10-08 12:38 | W.PM.OPSUD ---
Surgery/Procedure H&P Update DATE OF PROCEDURE: October 08, 2021 DATE H&P PERFORMED: 10/06/21 H&P UPDATE INFORMATION: I have reviewed H&P completed within last 30 days, I have examined patient prior to procedure and No changes to prior documentation PREOP DIAGNOSIS: ASHD/Ventricular arrhythmia/Cardiomyopathy PRIMARY INDICATION FOR PROCEDURE: As mentioned above PLANNED PROCEDURE: Operation Date: 10/08/21 08:30 Proposed Procedures p Cardiac Catheterization(Left) - Minal Romero MD PATIENT REASSESSED PRIOR TO SEDATION, WITH NO CHANGE NOTED: Yes PHYSICAL EXAM: alert, oriented x 3, clear to auscultation bilaterally, regular rate & rhythm and operative site marked AIRWAY EVAL/ANESTHESIA PLAN: normal airway, see other exam findings, ASA III, Monitored Anesthesia, Local Anesthesia, Risks, benefits & alternatives of sedation and/or procedure discussed and Patient agrees to continue as planned
--- NOTE | 2021-10-08 15:33 | PC.NURSE ---
received from cardiac skill labor at 1400 via w/c.report received.pt is alert and oriented x 4.denies pain.sr on monitor.right wrist with tr band on and inflated.no hematoma noted.right hand is warm and dry to touch.palpable radial pulse noted distal to tr band.instructed in activity restrictions s/p radial artery procedure...and instructed to notify staff for any bleeding,pain,numbness..or for any concerns at all.pt verb understanding of instructions.
[2021-10-08] MEDS: escitalopram 10 mg Tablet PO (15:42)
[2021-10-08] MEDS: FUROsemide 20 mg Tablet PO (15:42)
--- NOTE | 2021-10-08 17:57 | PC.NURSE ---
tr band slowly deflated and removed at 1700.no hematoma noted.right hand is warm to touch and with brisk capillary refill.site dressed with 2x2 gauze and secured with biocclusive drsg.discharge instructions given and explained to pt and spouse.both verb understanding of instructions.discharged at 1800 via w/c to exit.spouse to drive pt home.
== END 2021-10-08 17:04 | disposition home or self-care (01) ==
LOC: CCL 10:58 → CSU 17:09 → CCL 10-10 07:36
PROVIDERS: Internal Medicine Cardiovascular Disease; PCP Nurse Practitioner Family; Visit Provider Internal Medicine Cardiovascular Disease
DX: I25.10 Atherosclerotic heart disease of native coronary artery without angina pectoris (principal); R07.89 Other chest pain; I10 Essential (primary) hypertension; E78.5 Hyperlipidemia, unspecified; J44.9 Chronic obstructive pulmonary disease, unspecified; E11.9 Type 2 diabetes mellitus without complications; Z87.891 Personal history of nicotine dependence
CPT/HCPCS: 36415; 93458; 99152; 99153; C1769; C1887; C1894; G0378; J1644; J2250; J3010; J3490; J7030; Q0163; Q9967

== ENCOUNTER → 2021-10-18 14:19 | Outpatient (BNVA) | payer MEDICARE, SELFPAY | PROVIDERS: PCP Nurse Practitioner Family; Visit Provider Nurse Practitioner Family | DX: Z09 Encounter for follow-up examination after completed treatment for conditions other than malignant neoplasm (principal); I25.5 Ischemic cardiomyopathy; Z87.891 Personal history of nicotine dependence | CPT/HCPCS: 80048; 83735; 99214 ==

== ENCOUNTER 2021-10-19 08:08 | Outpatient (CLI) | payer MEDICARE, SELFPAY ==
--- NOTE | 2021-10-19 13:13 | PFTS_ITS ---
Date of Study:10/19/21 Date of Dictation: MECHANICS: Forced vital capacity (FVC) is reduced. Forced expiratory volume in one second (FEV1) is reduced. FEV1/FVC is reduced. FLOW VOLUME LOOP: Reduced flow at all lung volumes with significant scooping. LUNG VOLUMES: Total lung capacity (TLC) is normal. Residual volume (RV) is increased. DIFFUSING CAPACITY FOR CARBON MONOXIDE: Severely reduced. INTERPRETATION: The postbronchodilator spirometry is consistent with severe airflow obstruction. There is no significant postbronchodilator response. Lung volumes are consistent with air trapping. Gas exchange (DLCO) is severely reduced. MTDD
== END 2021-10-19 08:09 | disposition home or self-care (01) ==
PROVIDERS: PCP Nurse Practitioner Family; Visit Provider Internal Medicine Pulmonary Disease
DX: J44.9 Chronic obstructive pulmonary disease, unspecified (principal); F17.210 Nicotine dependence, cigarettes, uncomplicated
CPT/HCPCS: 94060; 94618; 94726; 94729

== ENCOUNTER → 2021-11-02 13:50 | Outpatient (BNVA) | payer MEDICARE, SELFPAY | PROVIDERS: PCP Nurse Practitioner Family; Visit Provider Internal Medicine Pulmonary Disease | DX: R06.02 Shortness of breath (principal); J44.9 Chronic obstructive pulmonary disease, unspecified; I48.0 Paroxysmal atrial fibrillation; I25.5 Ischemic cardiomyopathy; J22 Unspecified acute lower respiratory infection; Z87.891 Personal history of nicotine dependence; I10 Essential (primary) hypertension; E78.5 Hyperlipidemia, unspecified; E11.8 Type 2 diabetes mellitus with unspecified complications | CPT/HCPCS: 71046; 80048; 83880; 85025; 85378; 99214 ==

== ENCOUNTER 2021-11-15 05:51 | Emergency (ER) | payer MEDICARE, SELFPAY ==
--- NOTE | 2021-11-15 06:04 | XRR_ITS ---
PROCEDURE INFORMATION: Exam: XR Chest Exam date and time: 11/15/2021 6:22 AM Age: 65 years old Clinical indication: Shortness of breath; Additional info: Cp TECHNIQUE: Imaging protocol: XR of the chest. Views: 1 view. COMPARISON: CR XR chest 2V* [id number] 11/02/2021 4:33 PM FINDINGS: Lungs: There are calcified granulomas again seen. There is a background of emphysema and pulmonary fibrosis. There are increased linear opacities present in the lower hemithoraces bilaterally and mild peribronchial cuffing present, findings that may represent pulmonary edema. A bilateral basilar interstitial pneumonitis cannot be entirely excluded. Pleural spaces: Unremarkable. No pleural effusion. No pneumothorax. Heart/Mediastinum: Unremarkable. No cardiomegaly. Bones/joints: Unremarkable. XR/XR chest 1V portable [id number] IMPRESSION: Increased linear opacities in the lower hemithoraces and peribronchial cuffing present could represent mild pulmonary edema. Superimposed bilateral basilar interstitial pneumonitis cannot be entirely excluded. A
--- NOTE | 2021-11-15 06:04 | ECG_ITS ---
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 Measurements Intervals [place] Rate: 51 P: 86 NE: 160 QRS: 79 QRSD: 112 T: 79 QT: 474 QTc: 438 Interpretive Statements SINUS BRADYCARDIA MODERATE INTRAVENTRICULAR CONDUCTION DELAY [110+ ms QRS DURATION] Compared to ECG 10/04/2021 11:30:48 Intraventricular conduction delay now present Myocardial infarct finding no longer present Electronically Signed On 11-15-2021 19:39:35 CDT by Minal Romero M.D. [id number] f
[2021-11-15 06:05] VITALS: BP 177/82; PULSE 49; RESP 26; TEMP 36.5; O2SAT 93; BMI 27.3
[2021-11-15 06:22] LABS: Basophils % 0.3 %; Eosinophils # 0.2 10^3/uL (0.0-0.8); Eosinophils % 2.2 %; Hematocrit 44.6 % (42.0-52.0); Hemoglobin 14.8 g/dL (11.7-16.6); Lymphocytes # 1.5 10^3/uL (0.8-4.8); Lymphocytes % 15.6 %; Mean Corpuscular HGB Conc 33.2 g/dL (30.0-36.0); Mean Corpuscular Hemoglobin 30.6 pg (28.0-34.0); Mean Corpuscular Volume 92.1 fl (80-94); Mean Platelet Volume 10.9 fL (7.4-10.4); Monocytes # 0.9 10^3/uL (0.2-0.9); Monocytes % 9.2 %; Neutrophils # 7.05 10^3/uL (1.8-7.7); Neutrophils % 72.2 %; Nucleated Red Blood Cells % 0 %; Platelet Count 164 10^3/cmm (130-400); Red Blood Count 4.84 10^6/uL (4.1-5.3); Red Cell Distribution Width 14.3 % (12.1-15.1); White Blood Count 9.8 10^3/uL (4.0-10.0)
--- NOTE | 2021-11-15 06:24 | W.ED.SOB ---
HPI - SOB/Dyspnea General: Chief Complaint: Shortness of Breath/Dyspnea Stated Complaint: SOB Time Seen by Provider: 11/15/21 05:59 Source: patient Mode of arrival: ambulatory Limitations: no limitations History of Present Illness: HPI Narrative: 65-year-old male presents to the emergency room with complaints of shortness of breath. Patient states been short of breath for about the last 3 weeks he has been seen a couple times was put on some steroids and is on a second round of antibiotics does not seem to be improving. He is chronically on oxygen but when he presented here he is not on any oxygen his sats are right around 90 normally is on 2 to 3 L. Patient has a history of coronary artery disease, atrial fibrillation COPD and cardiomyopathy. He recently had a cardiac catheterization which showed LVEF 45%. MD elicited complaint: shortness of breath and cough Pertinent past history: COPD and congestive heart failure Onset (ago): week(s) Context: occurred during exertion Timing: constant Severity: moderate Exacerbating factors: lying flat, exertion and coughing Relieving factors: oxygen and rest Known history of: COPD and congestive heart failure Associated symptoms: Reports chest congestion, cough and orthopnea; Deny abdominal pain, chest pain, diaphoresis, dizziness, extremity pain, fever(s), hemoptysis, lightheadedness, myalgias, nausea, palpitations, paresthesias, polydipsia, polyuria, rash, sense of impending doom, syncope or vomiting Treatment prior to arrival: none Review of Systems Const: Denies: fever(s) or diaphoresis ENMT: Denies: throat pain, ear or mastoid pain, nasal discharge or nasal congestion Card: Reports: orthopnea; Denies: chest pain, palpitations, irregular heart rhythm, lightheadedness or syncope Resp: Reports: dyspnea, non-productive cough and chest congestion; Denies: hemoptysis GI: Denies: abdominal pain, nausea or vomiting : Denies: flank pain, difficulty urinating, dysuria, urinary frequency or urinary urgency Musc: Denies: extremity pain Skin/Breast: Denies: rash or pruritus Neuro: Denies: dizziness Endo: Denies: polyuria or polydipsia PFSH ED PFSH: Medical History Atrial fibrillation COPD (chronic obstructive pulmonary disease) Diabetes mellitus Erectile dysfunction Hyperlipidemia Hypertension Hypertriglyceridemia Ventricular tachycardia Surgical History S/P colonoscopic polypectomy Family History Father CAD (coronary artery disease), Onset Age: 50 Cancer Lung disease Mother Hyperlipidemia Hypertension Denies family history of Diabetes Clotting disorder Dementia Psychiatric illness Chronic kidney disease (CKD) Suicide Anesthesia complication Bleeding disorder Family history of premature coronary artery disease Social History Smoking and tobacco status: former smoker Quit status (tobacco): has quit using tobacco Year quit tobacco: 2011 Former quit date comment: 2ppd x 42 years Alcohol intake: never Physical Exam Const: COMMON NORMALS: no acute distress GENERAL APPEARANCE: cooperative and comfortable ORIENTATION/CONSCIOUSNESS: Yes awake, Yes oriented to person, Yes oriented to place and Yes oriented to time HENMT: COMMON NORMALS: normocephalic, atraumatic and hearing grossly normal bilaterally HEAD & SCALP: normocephalic and atraumatic Resp: AUSCULTATION: rhonchi, wheezes and diminished lung sounds on the right in the lower lung peng Cardio: COMMON NORMALS: regular rate, regular rhythm and No murmurs present (Cardio) RATE: regular rate RHYTHM: regular rhythm GI: COMMON NORMALS: Soft to palpation and No hepatosplenomegaly present AUSCULTATION: Yes normoactive bowel sounds PALPATION: Yes Soft to palpation, No Tenderness to palpation present (GI), No Guarding due to palpation present (GI) and Yes No hepatosplenomegaly present Extremity: COMMON NORMALS: normal to inspection, capillary refill normal, no clubbing, cyanosis or edema, no calf tenderness and no pedal edema Neuro: SENSORIUM/ORIENTATION: Yes oriented to person, Yes oriented to place and Yes oriented to time Skin: COMMON NORMALS: no rashes or lesions noted GENERAL SKIN EXAM: no rashes or lesions noted Course Vital Signs: Vital signs: Vital Signs Temperature 97.7 F 11/15/21 06:05 Pulse Rate 54 L 11/15/21 09:18 Respiratory Rate 18 11/15/21 09:18 Blood Pressure 178/101 11/15/21 09:18 Pulse Oximetry 96 11/15/21 09:18 MDM - SOB/Dyspnea Medical Decision Making Improved with diuresis here in the emergency room. Chest x-ray shows increased pulmonary edema. We will increase his Lasix to 40 p.o. daily. He is also doing better having been on the oxygen. When he came in he is not yet wearing his oxygen he has been prescribed it for 2 to 3 L continuously encouraged him to wear at all times. Recommend he follow-up with his primary care doctor within the week or with his medical practice administrator. Medical Records I reviewed the patient's medical records. Lab Data I reviewed the patient's lab results. : 11/15/21 06:10 11/15/21 06:10 Labs/Radiology: Radiology Impressions Chest X-Ray 11/15/21 06:04 IMPRESSION: Increased linear opacities in the lower hemithoraces and peribronchial cuffing present could represent mild pulmonary edema. Superimposed bilateral basilar interstitial pneumonitis cannot be entirely excluded. A Laboratory Results WBC 9.8 10^3/uL (4.0-10.0) 11/15/21 06:10 RBC 4.84 10^6/uL (4.1-5.3) 11/15/21 06:10 Hgb 14.8 g/dL (11.7-16.6) 11/15/21 06:10 Hct 44.6 % (42.0-52.0) 11/15/21 06:10 MCV 92.1 fl (80-94) 11/15/21 06:10 MCH 30.6 pg (28.0-34.0) 11/15/21 06:10 MCHC 33.2 g/dL (30.0-36.0) 11/15/21 06:10 RDW 14.3 % (12.1-15.1) 11/15/21 06:10 Plt Count 164 10^3/cmm (130-400) 11/15/21 06:10 MPV 10.9 fL (7.4-10.4) H 11/15/21 06:10 Neut % (Auto) 72.2 % 11/15/21 06:10 Lymph % (Auto) 15.6 % 11/15/21 06:10 [place] % (Auto) 9.2 % 11/15/21 06:10 Eos % (Auto) 2.2 % 11/15/21 06:10 Baso % (Auto) 0.3 % 11/15/21 06:10 Neut # (Auto) 7.05 10^3/uL (1.8-7.7) 11/15/21 06:10 Lymph # (Auto) 1.5 10^3/uL (0.8-4.8) 11/15/21 06:10 [place] # (Auto) 0.9 10^3/uL (0.2-0.9) 11/15/21 06:10 Eos # (Auto) 0.2 10^3/uL (0.0-0.8) 11/15/21 06:10 Baso # (Auto) 0.0 10^3/uL (0.0-0.1) 11/15/21 06:10 Nucleated RBC % (auto) 0 % 11/15/21 06:10 Nucleated RBCs # 0.0 /100WBC 11/15/21 06:10 Specimen Type Arterial 11/15/21 06:24 Sample Site Radial, right 11/15/21 06:24 ABG pH 7.41 (7.35-7.45) 11/15/21 06:24 ABG pCO2 37.9 mmHg (35-45) 11/15/21 06:24 ABG pO2 67.6 mmHg (80.0-100.0) L 11/15/21 06:24 ABG HCO3 24.0 mmol/L (22-26) 11/15/21 06:24 ABG O2 Saturation 93.4 11/15/21 06:24 ABG Base Excess -0.4 mmol/L (-2.0-2.0) 11/15/21 06:24 Oumar Test Pos 11/15/21 06:24 A-a O2 Gradient 4.4 mmHg (5-10) L 11/15/21 06:24 Hematocrit 44.5 % (42-52) 11/15/21 06:24 Hgb O2 Saturation 92.3 % (95-100) L 11/15/21 06:24 Carboxyhemoglobin 0.6 %THgb (0.4-20.1) 11/15/21 06:24 Methemoglobin 0.5 % (0.4-1.5) 11/15/21 06:24 Total Hemoglobin 14.5 g/dL (14-18) 11/15/21 06:24 Sodium 138.0 mmol/L (131-143) 11/15/21 06:24 Potassium 4.1 mmol/L (3.5-5.0) 11/15/21 06:24 Glucose 119.0 mg/dL (70-115) H 11/15/21 06:24 Ionized Calcium 1.2 mmol/L (1.1-1.4) 11/15/21 06:24 O2 Delivery Device Nc 11/15/21 06:24 O2 Liters/Min 2.0 % 11/15/21 06:24 Bakery Products Checker ID [email or web address] 11/15/21 06:24 Sodium 138 mmol/L (136-145) 11/15/21 06:10 Potassium 4.8 mmol/L (3.5-5.1) 11/15/21 06:10 Chloride 105 mmol/L (98-107) 11/15/21 06:10 Carbon Dioxide 24 mmol/L (22-29) 11/15/21 06:10 Anion Gap 13.8 (5-19) 11/15/21 06:10 BUN 23 mg/dL (8-23) 11/15/21 06:10 Creatinine 1.1 mg/dL (0.7-1.2) 11/15/21 06:10 GFR Calculation 66.8 mL/min (90-130) L 11/15/21 06:10 Glucose 97 mg/dL (65-115) 11/15/21 06:10 Calculated Osmolality 290 mOsm/kg (285-295) 11/15/21 06:10 Calcium 8.5 mg/dL (8.5-10.5) 11/15/21 06:10 Total Bilirubin 0.3 mg/dL (0.15-1.2) 11/15/21 06:10 AST 18 U/L (0-40) 11/15/21 06:10 ALT 23 U/L (0-41) 11/15/21 06:10 Alkaline Phosphatase 74 IU/L (40-130) 11/15/21 06:10 Troponin T Baseline 11 ng/L (0-15) 11/15/21 06:10 Troponin T 120 Minute 12.73 ng/L (0-15) 11/15/21 08:12 NT-Pro-B Natriuret Pep 682 pg/mL (0-125) H 11/15/21 06:10 Total Protein 6.4 g/dL (6.6-8.7) L 11/15/21 06:10 Albumin 3.9 g/dL (3.5-5.2) 11/15/21 06:10 Globulin 2.5 g/dL (1.3-4.6) 11/15/21 06:10 Discharge Plan Discharge Patient Disposition: Home Clinical Impression: Congestive heart failure, COPD (chronic obstructive pulmonary disease) Condition: Stable Prescriptions: Continued furosemide [Lasix] 20 mg tablet 20 mg PO DIRECTED Qty: 100 3RF Rx Instructions: Take 2 tabs daily x 5 days, then 1 tab daily thereafter Changed furosemide [Lasix] 20 mg tablet 40 mg PO DIRECTED Qty: 100 3RF Rx Instructions: Take 2 tabs daily x 5 days, then 1 tab daily thereafter No Action glipizide 10 mg tablet extended release 24hr 10 mg PO BID 0RF empagliflozin 25 mg tablet 25 mg PO DAILY 0RF escitalopram oxalate 20 mg tablet 10 mg PO .every other day 0RF metoprolol tartrate 25 mg tablet 100 mg PO BID 0RF sfmbxtqvvwz-epbrgkbxo-haxysxax 100-62.5-25 mcg blister with device 1 inh inhalation DAILY 0RF formoterol fumarate [Perforomist] 20 mcg/2 mL solution for nebulization 2 ml inhalation BID Qty: 120 5RF Yupelri 175 mcg/3 mL solution for nebulization 175 mcg inhalation DAILY Qty: 90 5RF nitroglycerin 0.4 mg tablet, sublingual 0.4 mg sublingual Q5M PRN (Reason: chest pain) 30 Days Qty: 30 3RF Rx Instructions: until response; do not exceed 3 doses per episode methylprednisolone [Medrol (Benny)] 4 mg tablets,dose pack See Rx Instructions PO PER PKG DIR 0RF Rx Instructions: PO PER PKG DIR levofloxacin 750 mg tablet 750 mg PO DAILY 7 Days Qty: 7 0RF amiodarone 200 mg tablet 400 mg PO DAILY Qty: 180 3RF Rx Instructions: Dose reduced doxycycline hyclate 100 mg tablet 100 mg PO BID 7 Days Qty: 14 0RF potassium chloride [Klor-Con 8] 8 mEq tablet extended release 8 meq PO DAILY Qty: 90 3RF atorvastatin 20 mg tablet 20 mg PO DAILY Qty: 90 3RF budesonide [Pulmicort] 0.5 mg/2 mL suspension for nebulization 0.5 mg inhalation BID Qty: 120 5RF isosorbide mononitrate 30 mg tablet extended release 24 hr 30 mg PO DAILY Qty: 90 1RF Rx Instructions: Start taking 1 tab daily, gradually increasing to 2 tabs daily tamsulosin 0.4 mg Capsule 0.4 mg PO BEDTIME 0RF Eliquis 5 mg Tablet 5 mg PO BID 0RF acetaminophen 325 mg Tablet 650 mg PO Q6H PRN (Reason: Mild/Mod Pain Or Temp >/= 101) Qty: 30 0RF Discharge Orders: Discharge ED (Routine); Ordered 11/15/21 Ordered By: Ashok Dang Referrals: Blu,MARY Santos [Primary Care Provider] - Discharge Diet: Usual diet Discharge Activity: Increase activity as tolerated Patient Instructions: Opioid Safety Activity Restrictions/Additional Instructions: Wear oxygen 24 hours a day. Increase your Lasix to 40 mg by mouth daily starting tomorrow. Follow-up with your medical practice administrator within the next week. Coding Level of Care Code ED Drive In Theater Attendant for Jerardog Fwd Exam Detailed
[2021-11-15 06:36] LABS: ABG PCO2 37.9 mmHg (35-45); ABG PH Result 7.41 (7.35-7.45); Alveolar-Arterial Oxygen Gradi 4.4 mmHg (5-10); Arterial Blood Gas Hematocrit 44.5 % (42-52); Base Excess ABG -0.4 mmol/L (-2.0-2.0); Blood Gas Allen Test Pos; Blood Gas Sample Site Radial, right; Blood Gas Sample Type Arterial; Carboxyhemoglobin 0.6 %THgb (0.4-20.1); HGB O2 Sat 92.3 % (95-100); Ionized Calcium Level - ABG 1.2 mmol/L (1.1-1.4); Methemoglobin 0.5 % (0.4-1.5); Oxygen Device NC; Oxygen Saturation ABG 93.4; PO2 ABG 67.6 mmHg (80.0-100.0); Potassium Level - ABG 4.1 mmol/L (3.5-5.0); Total Hemoglobin 14.5 g/dL (14-18)
[2021-11-15 06:40] LABS: Troponin(5th) Baseline 11 ng/L (0-15)
[2021-11-15] MEDS: FUROsemide 10 mg/mL SDV 4mL 40 MG IVP (06:41)
[2021-11-15 06:49] LABS: Alanine Aminotransferase 23 U/L (0-41); Albumin Level 3.9 g/dL (3.5-5.2); Alkaline Phosphatase 74 IU/L (40-130); Aspartate Amino Transferase 18 U/L (0-40); Blood Urea Nitrogen 23 mg/dL (8-23); Calcium 8.5 mg/dL (8.5-10.5); Carbon Dioxide 24 mmol/L (22-29); Chloride 105 mmol/L (98-107); Globulin 2.5 g/dL (1.3-4.6); Glomerular Filtration Rate 66.8 mL/min (90-130); Glucose 97 mg/dL (65-115); NT Pro B Type Natriuretic Pept 682 pg/mL (0-125); Osmolality Calculated 290 mOsm/kg (285-295); Sodium 138 mmol/L (136-145); Total Bilirubin 0.3 mg/dL (0.15-1.2); Total Protein 6.4 g/dL (6.6-8.7)
[2021-11-15 06:51] LABS: Anion Gap 13.8 (5-19); Potassium 4.8 mmol/L (3.5-5.1)
--- NOTE | 2021-11-15 08:04 | ECG_ITS ---
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 Measurements Intervals [place] Rate: 51 P: 76 [place]: 160 QRS: 65 QRSD: 109 T: 67 QT: 488 QTc: 450 Interpretive Statements SINUS BRADYCARDIA WITH OCCASIONAL SUPRAVENTRICULAR PREMATURE COMPLEXES PROLONGED QT INTERVAL Compared to ECG 11/15/2021 06:00:52 Prolonged QT interval now present Intraventricular conduction delay no longer present Electronically Signed On 11-15-2021 19:44:04 CDT by Minal Romero M.D. [id number]
--- NOTE | 2021-11-15 08:11 | PC.NURSE ---
EKG done at 0810 and shown to ER doctor
[2021-11-15 08:38] LABS: Troponin 5 2HR 12.73 ng/L (0-15)
[2021-11-15 09:18] VITALS: BP 178/101; PULSE 54; RESP 18; O2SAT 96
[2021-11-15 10:05] LABS: Troponin 5 2HR Delta 1.73 ABS# (0-10)
== END 2021-11-15 10:05 | disposition home or self-care (01) ==
PROVIDERS: Emergency Medicine; Emergency Provider Family Medicine; PCP Nurse Practitioner Family
DX: I11.0 Hypertensive heart disease with heart failure (principal); I50.9 Heart failure, unspecified; J44.9 Chronic obstructive pulmonary disease, unspecified; E11.9 Type 2 diabetes mellitus without complications; J81.1 Chronic pulmonary edema; Z87.891 Personal history of nicotine dependence; I48.91 Unspecified atrial fibrillation; E78.5 Hyperlipidemia, unspecified; Z79.84 Long term (current) use of oral hypoglycemic drugs; Z79.01 Long term (current) use of anticoagulants
CPT/HCPCS: 36600; 71045; 80051; 80053; 82330; 82805; 83880; 84484; 85025; 93005; 96374; 99284; J1940

== ENCOUNTER → 2021-11-18 10:31 | Outpatient (BNVA) | payer MEDICARE, SELFPAY | PROVIDERS: PCP Nurse Practitioner Family; Visit Provider Internal Medicine Cardiovascular Disease | DX: R55 Syncope and collapse (principal); I48.91 Unspecified atrial fibrillation; R00.1 Bradycardia, unspecified | CPT/HCPCS: 93229 ==

== ENCOUNTER → 2021-12-30 14:57 | Outpatient (BNVA) | payer MEDICARE, SELFPAY | PROVIDERS: PCP Nurse Practitioner Family; Visit Provider Emergency Medicine | DX: J06.9 Acute upper respiratory infection, unspecified (principal); U07.1 COVID-19 | CPT/HCPCS: 87426 ==

== ENCOUNTER 2022-01-03 21:17 | Emergency (ER) | payer MEDICARE, SELFPAY ==
--- NOTE | 2022-01-03 21:36 | XRR_ITS ---
PROCEDURE INFORMATION: Exam: XR Chest Exam date and time: 01/03/2022 9:56 PM Age: 66 years old Clinical indication: Shortness of breath; Additional info: SOB TECHNIQUE: Imaging protocol: Radiologic exam of the chest. Views: 1 view. COMPARISON: CR XR chest 1V portable [id number] 11/15/2021 6:22 AM FINDINGS: Lungs: There are emphysematous changes in both lungs with severe emphysema in the upper lobes bilaterally. There are calcified granulomas in the left lung not significantly changed. Findings of basilar fibrosis not significantly changed. There is some mild right basilar consolidation or atelectasis. Pneumonia not excluded. Pleural spaces: Unremarkable. No pleural effusion. No pneumothorax. Heart/Mediastinum: Unremarkable. No cardiomegaly. Bones/joints: Unremarkable. XR/XR chest 1V portable [id number] IMPRESSION: 1. COPD and old granulomatous disease. 2. Question of focal right lower lobe consolidation.
--- NOTE | 2022-01-03 21:39 | W.ED.SOB ---
HPI - SOB/Dyspnea General: Chief Complaint: Shortness of Breath/Dyspnea Stated Complaint: covid + Time Seen by Provider: 01/03/22 21:34 Source: patient and EMS Mode of arrival: EMS Limitations: no limitations History of Present Illness: HPI Narrative: 66-year-old male has a long history of COPD he is on 4 L of oxygen at baseline. Patient states that he tested positive for COVID on the has been having increasing cough and congestion shortness of breath. EMS states he did have wheezing he is currently on 4 L here he was given a breathing treatment in route and has had some slight improvement denies any chest pain denies any vomiting or diarrhea. Associated symptoms: Deny abdominal pain, chest pain, fever(s), nausea or vomiting Review of Systems Const: Denies: fever(s), chills, body aches or change in appetite Eyes: Denies: blurry vision or eye discomfort ENMT: Denies: throat pain or dental pain Card: Denies: chest pain Resp: Reports: dyspnea, non-productive cough and wheezing GI: Denies: abdominal pain, nausea, vomiting or diarrhea : Denies: dysuria Musc: Denies: neck pain or back pain Skin/Breast: Denies: rash Neuro: Denies: headache(s) Psych: Denies: depression Rj/Lymph: Denies: easy bruising All/Imm: Denies: urticaria PFSH ED PFSH: Medical History Atrial fibrillation COPD (chronic obstructive pulmonary disease) Diabetes mellitus Erectile dysfunction Hyperlipidemia Hypertension Hypertriglyceridemia Ventricular tachycardia Surgical History S/P colonoscopic polypectomy Family History Father CAD (coronary artery disease), Onset Age: 50 Cancer Lung disease Mother Hyperlipidemia Hypertension Denies family history of Diabetes Clotting disorder Dementia Psychiatric illness Chronic kidney disease (CKD) Suicide Anesthesia complication Bleeding disorder Family history of premature coronary artery disease Social History Smoking and tobacco status: former smoker Quit status (tobacco): has quit using tobacco Year quit tobacco: 2011 Former quit date comment: 2ppd x 42 years Alcohol intake: never Physical Exam Const: COMMON NORMALS: patient oriented x3 HENMT: COMMON NORMALS: normocephalic and atraumatic HEAD & SCALP: normocephalic and atraumatic Eye: COMMON NORMALS: Equal, round and reactive pupils present and EOMs intact bilaterally PUPIL: Yes Equal, round and reactive pupils present Neck/C-Spine: COMMON NORMALS: full ROM and supple Chest: COMMONS NORMALS: normal inspection of the chest and normal palpation of entire chest wall Resp: COMMON NORMALS: No retractions EFFORT & INSPECTION: Yes tachypneic AUSCULTATION: wheezes Cardio: COMMON NORMALS: regular rate, regular rhythm and No murmurs present (Cardio) RATE: regular rate RHYTHM: regular rhythm GI: COMMON NORMALS: Normal to inspection, nondistended, normoactive bowel sounds present, Soft to palpation, non-tender and no masses PALPATION: Yes Soft to palpation Extremity: COMMON NORMALS: normal to inspection and full ROM Neuro: COMMON NORMALS: patient oriented x3, moves all extremities and no focal motor deficits Psych: COMMON NORMALS: mental status grossly normal, Normal thought process present and cooperative THOUGHT PROCESS: Normal thought process present Skin: COMMON NORMALS: no rashes or lesions noted and no wounds GENERAL SKIN EXAM: no rashes or lesions noted Course Vital Signs: Vital signs: Vital Signs Temperature 97.9 F 01/03/22 21:45 Pulse Rate 85 01/03/22 23:54 Respiratory Rate 24 H 01/03/22 23:54 Blood Pressure 160/58 01/03/22 23:54 Pulse Oximetry 92 01/03/22 23:54 Oxygen Delivery Me thod 01/03/22 21:59 Oxygen Flow Rate 4 01/03/22 21:59 MDM - SOB/Dyspnea Medical Decision Making Patient presents here with COVID-19 along with a long history of COPD he is satting normally here on his 4 L oxygen he states that he feels improved after breathing treatment would like to go home did inform his x-ray does appear to be COVID he has no signs of bacterial pneumonia we will place him on 5 days of steroids if he has any worsening he is return he understands agrees to plan. Lab Data : 01/03/22 22:30 01/03/22 22:30 Labs/Radiology: Laboratory Results WBC 8.4 10^3/uL (4.0-10.0) 01/03/22: RBC 5.25 10^6/uL (4.1-5.3) 01/03/22: Hgb 15.9 g/dL (11.7-16.6) 01/03/22: Hct 48.0 % (42.0-52.0) 01/03/22: MCV 91.4 fl (80-94) 01/03/22: MCH 30.3 pg (28.0-34.0) 01/03/22: MCHC 33.1 g/dL (30.0-36.0) 01/03/22: RDW 14.5 % (12.1-15.1) 01/03/22 Plt Count 158 10^3/cmm (130-400) 01/03/22 MPV 11.1 fL (7.4-10.4) H 01/03/22: Neut % (Auto) 84.2 % 01/03/22: Lymph % (Auto) 6.9 % 01/03/22: [place] % (Auto) 8.0 % 01/03/22: Eos % (Auto) 0.1 % 01/03/22: Baso % (Auto) 0.2 % 01/03/22: Neut # (Auto) 7.02 10^3/uL (1.8-7.7) 01/03/22: Lymph # (Auto) 0.6 10^3/uL (0.8-4.8) L 01/03/22: [place] # (Auto) 0.7 10^3/uL (0.2-0.9) 01/03/22: Eos # (Auto) 0.0 10^3/uL (0.0-0.8) 01/03/22 Baso # (Auto) 0.0 10^3/uL (0.0-0.1) 01/03/22 Nucleated RBC % (auto) 0 % 01/03/22 Nucleated RBCs # 0.0 /100WBC 01/03/22: PT 13.30 SECONDS (12.1-14.9) 01/03/22 22:30 INR 0.98 (0.8-1.2) 01/03/22 22:30 Specimen Type Arterial 01/03/22 21:43 Sample Site Radial, right 01/03/22 21:43 ABG pH 7.44 (7.35-7.45) 01/03/22 21:43 ABG pCO2 33.8 mmHg (35-45) L 01/03/22 21:43 ABG pO2 72.1 mmHg (80.0-100.0) L 01/03/22 21:43 ABG HCO3 23.1 mmol/L (22-26) 01/03/22 21:43 ABG Base Excess -0.3 mmol/L (-2.0-2.0) 01/03/22 21:43 Oumar Test Pos 01/03/22 21:43 Hematocrit 48.2 % (42-52) 01/03/22 21:43 Hgb O2 Saturation 92.1 % (95-100) L 01/03/22 21:43 Carboxyhemoglobin 0.5 %THgb (0.4-20.1) 01/03/22 21:43 Methemoglobin 0.7 % (0.4-1.5) 01/03/22 21:43 Total Hemoglobin 15.7 g/dL (14-18) 01/03/22 21:43 O2 Delivery Device Nc 01/03/22 21:43 O2 Liters/Min 4.0 % 01/03/22 21:43 Mercury Cell Cleaner ID [place] 01/03/22 21:43 Sodium 135 mmol/L (136-145) L 01/03/22 22:30 Potassium 3.7 mmol/L (3.5-5.1) 01/03/22 22:30 Chloride 94 mmol/L (98-107) L 01/03/22 22:30 Carbon Dioxide 24 mmol/L (22-29) 01/03/22 22:30 Anion Gap 20.7 (5-19) H 01/03/22 22:30 BUN 13 mg/dL (8-23) 01/03/22 22:30 Creatinine 0.9 mg/dL (0.7-1.2) 01/03/22 22:30 GFR Calculation 83.9 mL/min (90-130) L 01/03/22 22:30 Glucose 83 mg/dL (65-115) 01/03/22 22:30 Calculated Osmolality 279 mOsm/kg (285-295) L 01/03/22 22:30 Calcium 8.5 mg/dL (8.5-10.5) 01/03/22 22:30 Total Bilirubin 0.4 mg/dL (0.15-1.2) 01/03/22 22:30 AST 27 U/L (0-40) 01/03/22 22:30 ALT 25 U/L (0-41) 01/03/22 22:30 Alkaline Phosphatase 74 IU/L (40-130) 01/03/22 22:30 NT-Pro-B Natriuret Pep 787 pg/mL (0-125) H 01/03/22 22:30 Total Protein 6.5 g/dL (6.6-8.7) L 01/03/22 22:30 Albumin 3.4 g/dL (3.5-5.2) L 01/03/22 22:30 Globulin 3.1 g/dL (1.3-4.6) 01/03/22 22:30 EKG Data EKG 1: I personally reviewed and interpreted this EKG as follows: EKG Interpretation Date: 01/03/22 EKG interpretation time: 23:11 Interpretation: afib hr [address] or t wave abnormalities qrs 115 qtc 413 Discharge Plan Discharge Patient Disposition: Home Clinical Impression: COVID-19, COPD (chronic obstructive pulmonary disease) Condition: Stable Prescriptions: New prednisone 50 mg tablet 50 mg PO DAILY Qty: 5 0RF No Action glipizide 10 mg tablet extended release 24hr 10 mg PO BID empagliflozin 25 mg tablet 25 mg PO DAILY escitalopram oxalate 20 mg tablet 10 mg PO .every other day metoprolol tartrate 25 mg tablet 100 mg PO BID tumizirvssm-uecyagosf-lcqimslv 100-62.5-25 mcg blister with device 1 inh inhalation DAILY formoterol fumarate [Perforomist] 20 mcg/2 mL solution for nebulization 2 ml inhalation BID Qty: 120 5RF Yupelri 175 mcg/3 mL solution for nebulization 175 mcg inhalation DAILY Qty: 90 5RF nitroglycerin 0.4 mg tablet, sublingual 0.4 mg sublingual Q5M PRN (Reason: chest pain) 30 Days Qty: 30 3RF Rx Instructions: until response; do not exceed 3 doses per episode ibuprofen 800 mg tablet 800 mg PO Q8H PRN (Reason: pain) Qty: 30 0RF amiodarone 200 mg tablet 400 mg PO DAILY Qty: 180 3RF Rx Instructions: Dose reduced potassium chloride [Klor-Con 8] 8 mEq tablet extended release 8 meq PO DAILY Qty: 90 3RF atorvastatin 20 mg tablet 20 mg PO DAILY Qty: 90 3RF budesonide [Pulmicort] 0.5 mg/2 mL suspension for nebulization 0.5 mg inhalation BID Qty: 120 5RF isosorbide mononitrate 30 mg tablet extended release 24 hr 30 mg PO DAILY Qty: 90 1RF Rx Instructions: Start taking 1 tab daily, gradually increasing to 2 tabs daily magnesium L-lactate [Magtab] 84 mg tablet extended release 84 mg PO BID Qty: 180 3RF tamsulosin 0.4 mg Capsule 0.4 mg PO BEDTIME Eliquis 5 mg Tablet 5 mg PO BID acetaminophen 325 mg Tablet 650 mg PO Q6H PRN (Reason: Mild/Mod Pain Or Temp >/= 101) Qty: 30 0RF Lasix 20 mg tablet 40 mg PO DIRECTED Qty: 100 3RF Rx Instructions: Take 2 tabs daily x 5 days, then 1 tab daily thereafter Discharge Orders: Discharge ED (Routine); Ordered 01/03/22 Ordered By: Rosemary oJhnson Referrals: Danielle Hurt APN [Primary Care Provider] - 1-3 days Discharge Diet: Advance as tolerated Discharge Activity: Resume usual activity Patient Instructions: COVID-19 (Coronavirus Disease 2019) (ED) Coding Level of Care Code ED Glass Vial Filler for Kahlil Fwd Exam Comprehensive
[2022-01-03 21:45] VITALS: BP 185/106; PULSE 83; RESP 24; TEMP 36.6; O2SAT 94; BMI 27.4
[2022-01-03 21:54] LABS: ABG PCO2 33.8 mmHg (35-45); ABG PH Result 7.44 (7.35-7.45); Arterial Blood Gas Hematocrit 48.2 % (42-52); Base Excess ABG -0.3 mmol/L (-2.0-2.0); Blood Gas Allen Test Pos; Blood Gas Operator Identificat WALCI; Blood Gas Sample Site Radial, right; Blood Gas Sample Type Arterial; Carboxyhemoglobin 0.5 %THgb (0.4-20.1); HCO3 ABG 23.1 mmol/L (22-26); HGB O2 Sat 92.1 % (95-100); Methemoglobin 0.7 % (0.4-1.5); Oxygen Device NC; PO2 ABG 72.1 mmHg (80.0-100.0); Total Hemoglobin 15.7 g/dL (14-18)
[2022-01-03 21:59] VITALS: PULSE 85; RESP 22; O2SAT 96
[2022-01-03] MEDS: ipratropium-albuterol 3 mL Neb INHALATION (22:00)
[2022-01-03] MEDS: levalbuterol 1.25 mg/3 mL Neb INHALATION (22:00)
[2022-01-03 22:08] VITALS: PULSE 84
--- NOTE | 2022-01-03 22:37 | ECG_ITS ---
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 Measurements Intervals [place] Rate: 118 P: VA: QRS: 83 QRSD: 115 T: 44 QT: 343 QTc: 481 Interpretive Statements ATRIAL FIBRILLATION WITH RAPID VENTRICULAR RESPONSE MODERATE INTRAVENTRICULAR CONDUCTION DELAY [110+ ms QRS DURATION] ABNORMAL RHYTHM ECG Compared to ECG 11/15/2021 08:08:29 Intraventricular conduction delay now present Sinus bradycardia no longer present Prolonged QT interval no longer present Electronically Signed On 01-04-2022 21:09:37 CDT by Minal Romero M.D. [id number]
[2022-01-03 22:47] LABS: INR 0.98 (0.8-1.2)
[2022-01-03 22:53] LABS: Basophils % 0.2 %; Eosinophils % 0.1 %; Hemoglobin 15.9 g/dL (11.7-16.6); Lymphocytes # 0.6 10^3/uL (0.8-4.8); Lymphocytes % 6.9 %; Mean Corpuscular HGB Conc 33.1 g/dL (30.0-36.0); Mean Corpuscular Hemoglobin 30.3 pg (28.0-34.0); Mean Corpuscular Volume 91.4 fl (80-94); Mean Platelet Volume 11.1 fL (7.4-10.4); Monocytes # 0.7 10^3/uL (0.2-0.9); Neutrophils # 7.02 10^3/uL (1.8-7.7); Neutrophils % 84.2 %; Nucleated Red Blood Cells % 0 %; Platelet Count 158 10^3/cmm (130-400); Red Blood Count 5.25 10^6/uL (4.1-5.3); Red Cell Distribution Width 14.5 % (12.1-15.1); White Blood Count 8.4 10^3/uL (4.0-10.0)
[2022-01-03 22:59] LABS: Alanine Aminotransferase 25 U/L (0-41); Albumin Level 3.4 g/dL (3.5-5.2); Alkaline Phosphatase 74 IU/L (40-130); Anion Gap 20.7 (5-19); Aspartate Amino Transferase 27 U/L (0-40); Blood Urea Nitrogen 13 mg/dL (8-23); Calcium 8.5 mg/dL (8.5-10.5); Carbon Dioxide 24 mmol/L (22-29); Chloride 94 mmol/L (98-107); Creatinine Clr Calc Pharmacy 84.6302; Globulin 3.1 g/dL (1.3-4.6); Glomerular Filtration Rate 83.9 mL/min (90-130); Glucose 83 mg/dL (65-115); Osmolality Calculated 279 mOsm/kg (285-295); Potassium 3.7 mmol/L (3.5-5.1); Sodium 135 mmol/L (136-145); Total Bilirubin 0.4 mg/dL (0.15-1.2); Total Protein 6.5 g/dL (6.6-8.7)
[2022-01-03 23:10] LABS: NT Pro B Type Natriuretic Pept 787 pg/mL (0-125)
[2022-01-03 23:54] VITALS: BP 160/58; PULSE 85; RESP 24; O2SAT 92
== END 2022-01-03 23:55 | disposition home or self-care (01) ==
PROVIDERS: Emergency Provider Emergency Medicine; PCP Nurse Practitioner Family
DX: U07.1 COVID-19 (principal); J44.9 Chronic obstructive pulmonary disease, unspecified; Z79.01 Long term (current) use of anticoagulants; Z79.84 Long term (current) use of oral hypoglycemic drugs; E11.9 Type 2 diabetes mellitus without complications; E78.5 Hyperlipidemia, unspecified; I10 Essential (primary) hypertension; Z87.891 Personal history of nicotine dependence
CPT/HCPCS: 36600; 71045; 80053; 82805; 83880; 85025; 85610; 93005; 94640; 96374; 99285; J2930; J7614

== ENCOUNTER 2022-03-07 19:51 | Emergency (ER) | payer MEDICARE, SELFPAY ==
--- NOTE | 2022-03-07 19:52 | ECG_ITS ---
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 Measurements Intervals [place] Rate: 51 P: 70 OR: 158 QRS: 63 QRSD: 106 T: 68 QT: 468 QTc: 434 Interpretive Statements SINUS BRADYCARDIA Compared to ECG 01/03/2022 23:11:35 Atrial fibrillation no longer present Intraventricular conduction delay no longer present Electronically Signed On 03-07-2022 22:43:32 CDT by Devante Colindres M.D. [id number]
--- NOTE | 2022-03-07 19:52 | XRR_ITS ---
PROCEDURE INFORMATION: Exam: XR Chest Exam date and time: 03/07/2022 8:29 PM Age: 66 years old Clinical indication: Dyspnea; Additional info: SOB TECHNIQUE: Imaging protocol: Radiologic exam of the chest. Views: 1 view. COMPARISON: CR (CHEST, ) 01/03/2022 9:56 PM FINDINGS: Lungs: Multiple calcified pulmonary granulomas are again noted. Mild reticular interstitial prominence in the lung bases with some improvement. No obvious acute consolidation. Probable upper lobe emphysematous changes. The lung bases are suboptimally assessed due to technique however the upper lungs are clear of focal consolidation. Suboptimal lung base assessment. Followup including lateral view may be obtained if clinically indicated. Pleural spaces: Unremarkable. No pleural effusion. No pneumothorax. Heart/Mediastinum: Cardiac silhouette appears normal in size. No obvious vascular congestion. Bones/joints: No acute osseous findings. Other findings: Single view was submitted. XR/XR chest 1V portable [id number] IMPRESSION: No acute consolidation. Slight interval improvement of bilateral basilar interstitial prominence.
[2022-03-07 19:53] VITALS: BP 154/65; PULSE 54; RESP 18; TEMP 36.2; O2SAT 90
== END 2022-03-07 20:49 | disposition left against medical advice (07) ==
PROVIDERS: Emergency Provider Family Medicine; PCP Nurse Practitioner Family
DX: R07.9 Chest pain, unspecified (principal); Z53.21 Procedure and treatment not carried out due to patient leaving prior to being seen by health care provider
CPT/HCPCS: 71045; 93005

== ENCOUNTER → 2022-04-05 11:00 | Outpatient (BNVA) | payer MEDICARE, SELFPAY | PROVIDERS: PCP Nurse Practitioner Family; Visit Provider Internal Medicine Cardiovascular Disease | DX: I48.91 Unspecified atrial fibrillation (principal); Z79.01 Long term (current) use of anticoagulants; I25.5 Ischemic cardiomyopathy; R07.89 Other chest pain; J44.9 Chronic obstructive pulmonary disease, unspecified; N52.9 Male erectile dysfunction, unspecified; E78.1 Pure hyperglyceridemia; E78.2 Mixed hyperlipidemia; E11.9 Type 2 diabetes mellitus without complications; Z79.84 Long term (current) use of oral hypoglycemic drugs; I10 Essential (primary) hypertension; Z87.891 Personal history of nicotine dependence | CPT/HCPCS: 99213; 99214 ==

== ENCOUNTER 2022-06-19 15:00 | Observation (INO) | payer MEDICARE, SELFPAY ==
[2022-06-19 15:13] VITALS: BP 91/48; PULSE 49; RESP 16; TEMP 36.6; O2SAT 92
--- NOTE | 2022-06-19 15:47 | XRR_ITS ---
PROCEDURE INFORMATION: Exam: XR Chest Exam date and time: 06/19/2022 3:58 PM Age: 66 years old Clinical indication: Dyspnea TECHNIQUE: Imaging protocol: Radiologic exam of the chest. Views: 1 view. COMPARISON: CR (CHEST, ) 03/07/2022 8:29 PM FINDINGS: Lungs: Consolidation in both medial lung bases and bilateral perihilar regions. Calcified granulomas in both lungs. Changes of emphysema. Pleural spaces: Probable small pleural effusions. No pneumothorax. Heart/Mediastinum: Unremarkable. No cardiomegaly. Bones/joints: Unremarkable. XR/XR chest 1V portable [id number] IMPRESSION: Bilateral multilobar pneumonia. Radiographic follow-up is recommended to document resolution and to exclude an underlying neoplastic process.
--- NOTE | 2022-06-19 15:49 | ED_ITS ---
HPI - SOB/Dyspnea General: Chief Complaint: Shortness of Breath/Dyspnea Stated Complaint: Weakness, Low o2, fatigue Time Seen by Provider: 06/19/22 15:37 Source: patient and family Mode of arrival: wheelchair Limitations: no limitations History of Present Illness: HPI Narrative: See nursing assessment. Patient states he has had increasing baseline shortness of breath over the past 2 to 3 weeks. He states he has chronic COPD. He states he normally uses oxygen at 5 L/min by nasal cannula at baseline. Patient reports no fever. He has had rare chest pain but no chest pain now. Said nonproductive cough and mild peripheral edema. States he became concerned today because he is having generalized weakness and difficulty walking due to dyspnea on exertion. Patient states he had COVID about a year ago. Possible history includes severe COPD, A. fib, COVID 1 year ago, nonischemic cardiomyopathy, diabetes mellitus, hypertension. Patient is on Eliquis, baseline oxygen at 5 L/min by nasal cannula. He states he does have a nebulizer at home but has not been using it. States he quit smoking about 2011. Associated symptoms: Reports chest pain (Occasionally, no chest pain now.); Deny abdominal pain, fever(s), nausea, palpitations, syncope or vomiting Review of Systems Const: Reports: fatigue and malaise; Denies: fever(s) or chills Eyes: Denies: change in vision ENMT: Denies: throat pain Card: Reports: chest pain (Occasionally, no chest pain now.), edema, swelling of feet/ankles and dyspnea on exertion; Denies: palpitations or syncope Resp: Reports: dyspnea and non-productive cough; Denies: wheezing or stridor GI: Denies: abdominal pain, nausea or vomiting : Denies: flank pain Musc: Denies: neck pain or back pain Skin/Breast: Denies: rash or pruritus Neuro: Denies: headache(s) or numbness in extremities Psych: Denies: anxiety Rj/Lymph: Denies: enlarged lymph nodes PFSH ED PFSH: Medical History Atrial fibrillation COPD (chronic obstructive pulmonary disease) Diabetes mellitus Erectile dysfunction Hyperlipidemia Hypertension Hypertriglyceridemia Ventricular tachycardia Surgical History S/P colonoscopic polypectomy Family History Father CAD (coronary artery disease), Onset Age: 50 Cancer Lung disease Mother Hyperlipidemia Hypertension Denies family history of Diabetes Clotting disorder Dementia Psychiatric illness Chronic kidney disease (CKD) Suicide Anesthesia complication Bleeding disorder Family history of premature coronary artery disease Social History Smoking and tobacco status: former smoker Quit status (tobacco): has quit using tobacco Year quit tobacco: 2011 Former quit date comment: 2ppd x 42 years Alcohol intake: never Physical Exam Const: COMMON NORMALS: no acute distress, patient oriented x3, no limitations and well nourished GENERAL APPEARANCE: cooperative HENMT: COMMON NORMALS: normocephalic and atraumatic HEAD & SCALP: normocephalic and atraumatic FACE & SINUS: normal facial exam Eye: COMMON NORMALS: EOMs intact bilaterally Neck/C-Spine: COMMON NORMALS: full ROM, no lymphadenopathy, supple and no meningeal signs GENERAL: Yes normal visual inspection Lymph: LYMPHATIC: no lymphadenopathy noted Chest: COMMONS NORMALS: normal inspection of the chest and normal palpation of entire chest wall CHEST: No Ecchymosis present and No rash Resp: COMMON NORMALS: normal respiratory effort, No retractions and clear to auscultation bilaterally EFFORT & INSPECTION: No respiratory distress AUSCULTATION: clear to auscultation bilaterally OTHER: Lungs actually sound clear. No wheezing or crackles or rhonchi. Cardio: COMMON NORMALS: regular rate, regular rhythm and Peripheral pulses 2+ throughout JUGULAR VENOUS DISTENTION: no JVD RATE: regular rate RHYTHM: regular rhythm PERIPHERAL PULSES: Peripheral pulses 2+ throughout GI: COMMON NORMALS: Normal to inspection, nondistended, normoactive bowel sounds present and non-tender : COMMON NORMALS: Yes no CVA tenderness BLADDER/KIDNEY EXAM: Yes no CVA tenderness Back/Pelvis: COMMON NORMALS: no CVA tenderness Extremity: COMMON NORMALS: full ROM and capillary refill normal NARRATIVE EXTREMITY EXAM: 1+ pitting edema lower extremities bilaterally. Peripheral pulses normal. Neuro: COMMON NORMALS: patient oriented x3, CN's II-XII intact bilaterally, no focal motor deficits and no sensory deficits noted MENINGEAL SIGNS: Yes no meningeal signs Psych: COMMON NORMALS: mental status grossly normal and Normal thought process present THOUGHT PROCESS: Normal thought process present Skin: COMMON NORMALS: no rashes or lesions noted and no wounds GENERAL SKIN EXAM: no rashes or lesions noted Course Vital Signs: Vital signs: Vital Signs Temperature 97.8 F 06/19/22 15:13 Pulse Rate 48 L 06/19/22 16:14 Respiratory Rate 23 H 06/19/22 16:14 Blood Pressure 103/53 06/19/22 16:14 Pulse Oximetry 92 06/19/22 16:14 Oxygen Delivery Me thod 06/19/22 16:14 Oxygen Flow Rate 5 06/19/22 16:14 MDM - SOB/Dyspnea Medical Decision Making COPD exacerbation versus exacerbation of congestive heart failure. Patient already on anticoagulants for atrial fibrillation 172: Discussed with hospitalist Dr[facility]ang[facility] Start Rocephin IV for antibiotic. Patient is not a candidate for IV fluid bolus due to his history of congestive heart failure and high risk for fluid overload. Lab Data 06/19/22 15:45 06/19/22 15:45 Labs/Radiology: Radiology Impressions Chest X-Ray 06/19/22 15:47 IMPRESSION: Bilateral multilobar pneumonia. Radiographic follow-up is recommended to document resolution and to exclude an underlying neoplastic process. Laboratory Results WBC 11.0 10^3/uL (4.0-10.0) H 06/19/22 15:45 RBC 4.71 10^6/uL (4.1-5.3) 06/19/22 15:45 Hgb 12.9 g/dL (11.7-16.6) 06/19/22 15:45 Hct 41.9 % (42.0-52.0) L 06/19/22 15:45 MCV 89.0 fl (80-94) 06/19/22 15:45 MCH 27.4 pg (28.0-34.0) L 06/19/22 15:45 MCHC 30.8 g/dL (30.0-36.0) 06/19/22 15:45 RDW 17.1 % (12.1-15.1) H 06/19/22 15:45 Plt Count 222 10^3/cmm (130-400) 06/19/22 15:45 MPV 10.1 fL (7.4-10.4) 06/19/22 15:45 Neut % (Auto) 81.2 % 06/19/22 15:45 Lymph % (Auto) 8.1 % 06/19/22 15:45 [place] % (Auto) 8.7 % 06/19/22 15:45 Eos % (Auto) 0.9 % 06/19/22 15:45 Baso % (Auto) 0.3 % 06/19/22 15:45 Neut # (Auto) 8.92 10^3/uL (1.8-7.7) H 06/19/22 15:45 Lymph # (Auto) 0.9 10^3/uL (0.8-4.8) 06/19/22 15:45 [place] # (Auto) 1.0 10^3/uL (0.2-0.9) H 06/19/22 15:45 Eos # (Auto) 0.1 10^3/uL (0.0-0.8) 06/19/22 15:45 Baso # (Auto) 0.0 10^3/uL (0.0-0.1) 06/19/22 15:45 Nucleated RBC % (auto) 0 % 06/19/22 15:45 Nucleated RBCs # 0.0 /100WBC 06/19/22 15:45 Sodium 132 mmol/L (136-145) L 06/19/22 15:45 Potassium 5.3 mmol/L (3.5-5.1) H 06/19/22 15:45 Chloride 96 mmol/L (98-107) L 06/19/22 15:45 Carbon Dioxide 27 mmol/L (22-29) 06/19/22 15:45 Anion Gap 14.3 (5-19) 06/19/22 15:45 BUN 21 mg/dL (8-23) 06/19/22 15:45 Creatinine 1.0 mg/dL (0.7-1.2) 06/19/22 15:45 GFR Calculation 74.3 mL/min (90-130) L 06/19/22 15:45 Glucose 157 mg/dL (65-115) H 06/19/22 15:45 Calculated Osmolality 280 mOsm/kg (285-295) L 06/19/22 15:45 Lactic Acid 3.0 mmol/L (0.5-2.2) H 06/19/22 15:45 Calcium 8.1 mg/dL (8.5-10.5) L 06/19/22 15:45 Troponin T Baseline 24 ng/L (0-15) H 06/19/22 15:45 NT-Pro-B Natriuret Pep 8456 pg/mL (0-125) H 06/19/22 15:45 Influenza Type A Ag negative (Negative) 06/19/22 16:10 Influenza Type B Ag negative (Negative) 06/19/22 16:10 SARS-CoV-2 Ag (Rapid) negative (Negative) 06/19/22 16:10 EKG Data EKG 1: I personally reviewed and interpreted this EKG as follows: EKG Interpretation Date: 06/19/22 EKG interpretation time: 16:43 Prior EKG tracings: available for review (No change from EKG on 03/07/2022) Interpretation: Sinus bradycardia with normal axis. Right IVCD. Heart rate 47. Normal ST segment. Normal MS interval, normal P waves, inverted T waves in the anterior lateral leads. Discharge Plan Discharge Patient Disposition: Placed in Observation Clinical Impression: Bradycardia, sinus, Acidosis, lactic COPD (chronic obstructive pulmonary disease) Qualifiers: COPD type: unspecified COPD Qualified Code(s): J44.9 - Chronic obstructive pulmonary disease, unspecified Community acquired pneumonia Qualifiers: Laterality: unspecified laterality Qualified Code(s): J18.9 - Pneumonia, unspecified organism Coding Level of Care Code ED Security Guard Supervisor for Chg Fwd History Comprehensive Exam Comprehensive
[2022-06-19 16:02] LABS: Basophils % 0.3 %; Eosinophils # 0.1 10^3/uL (0.0-0.8); Eosinophils % 0.9 %; Hematocrit 41.9 % (42.0-52.0); Hemoglobin 12.9 g/dL (11.7-16.6); Lymphocytes # 0.9 10^3/uL (0.8-4.8); Lymphocytes % 8.1 %; Mean Corpuscular HGB Conc 30.8 g/dL (30.0-36.0); Mean Corpuscular Hemoglobin 27.4 pg (28.0-34.0); Mean Platelet Volume 10.1 fL (7.4-10.4); Monocytes % 8.7 %; Neutrophils # 8.92 10^3/uL (1.8-7.7); Neutrophils % 81.2 %; Nucleated Red Blood Cells % 0 %; Platelet Count 222 10^3/cmm (130-400); Red Blood Count 4.71 10^6/uL (4.1-5.3); Red Cell Distribution Width 17.1 % (12.1-15.1)
[2022-06-19 16:14] VITALS: BP 103/53; PULSE 48; RESP 23; O2SAT 92
[2022-06-19 16:35] LABS: Troponin(5th) Baseline 24 ng/L (0-15)
[2022-06-19 16:38] LABS: Influenza A by IFA negative (Negative); Influenza B by IFA negative (Negative); SARS Covid-2 Antigen negative (Negative)
--- NOTE | 2022-06-19 16:39 | ECG_ITS ---
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 Measurements Intervals [place] Rate: 47 P: 50 OR: 174 QRS: 85 QRSD: 127 T: 53 QT: 435 QTc: 387 Interpretive Statements SINUS BRADYCARDIA POSSIBLE RIGHT VENTRICULAR CONDUCTION DELAY [RSR (QR) IN V1/V2] ST DEVIATION AND MODERATE T-WAVE ABNORMALITY, CONSIDER ANTEROLATERAL ISCHEMIA [-0.1+ mV T-WAVE IN V3-V6] Compared to ECG 03/07/2022 20:03:05 T-wave abnormality now present Possible ischemia now present Electronically Signed On 06-20-2022 7:08:25 HAIR WEAVER by Karson Espinosa M.D. [id number]
[2022-06-19 16:42] LABS: Anion Gap 14.3 (5-19); Blood Urea Nitrogen 21 mg/dL (8-23); Calcium 8.1 mg/dL (8.5-10.5); Carbon Dioxide 27 mmol/L (22-29); Chloride 96 mmol/L (98-107); Glomerular Filtration Rate 74.3 mL/min (90-130); Glucose 157 mg/dL (65-115); NT Pro B Type Natriuretic Pept 8456 pg/mL (0-125); Osmolality Calculated 280 mOsm/kg (285-295); Potassium 5.3 mmol/L (3.5-5.1); Sodium 132 mmol/L (136-145)
[2022-06-19 17:22] LABS: Reflex Lactate Order REFLEX LACTIC ORDERD
[2022-06-19] MEDS: cefTRIAXone 2,000 MG in sodium chloride 0.9% (plus) 50 ML 100 MG IV (17:34)
--- NOTE | 2022-06-19 17:49 | ECG_ITS ---
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 Measurements Intervals [place] Rate: 49 P: 67 MD: 159 QRS: 89 QRSD: 122 T: 42 QT: 484 QTc: 438 Interpretive Statements SINUS BRADYCARDIA RIGHT BUNDLE BRANCH BLOCK [120+ ms QRS DURATION, UPRIGHT V1, 40+ ms S IN I/aVL/V4/V5/V6] MODERATE T-WAVE ABNORMALITY, CONSIDER LATERAL ISCHEMIA [-0.1+ mV T-WAVE IN I/aVL/V5/V6] Compared to ECG 06/19/2022 16:39:23 Right bundle-branch block now present T-wave abnormality still present Possible ischemia still present Electronically Signed On 06-20-2022 7:14:53 DISASSEMBLER PRODUCT by Karson Espinosa M.D. [id number]
[2022-06-19 17:56] LABS: Troponin 5 2HR 20.88 ng/L (0-15)
[2022-06-19 17:58] LABS: Troponin 5 2HR Delta -3.12 ABS# (0-10)
[2022-06-19 18:00] VITALS: O2SAT 92
--- NOTE | 2022-06-19 18:10 | P.HP_ITS ---
Providers/Chief Complaint Admitting Physician: Radames Dang MD Primary Care Provider: Danielle Hurt APN Chief Complaint: Weakness, Low o2, fatigue History of Present Illness Ralph Matta is a 66 year old male with history of A. fib, diabetes, COPD, uses 5 L of oxygen, was at [facility] in May with bilateral pneumonia presenting today with worsening shortness of breath. He has not noticed any fever, he has been experiencing intermittent chest pain which she is describing as mainly on exertion, he carries history of congestive heart failure, takes Lasix, he has not noticed any nausea, vomiting, diarrhea. He thinks his symptoms started when he fell late May last year and since then he has been feeling weak and lethargic at [facility] he was discharged after 2 days. He is back in the hospital with worsening of shortness of breath. 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 In the ER he has been diagnosed with pneumonia he is not septic, he has received antibiotics, currently on 5 L which is his home requirement, he does not have any clinical signs of fluid overload we will request EKG, troponin series, echo continue antibiotics Review of Systems Const: Reports: chills and body aches Eyes: Denies: change in vision ENMT: Denies: throat pain Card: Reports: chest pain and dyspnea on exertion Resp: Reports: dyspnea GI: Denies: abdominal pain : Denies: flank pain Musc: Denies: neck pain Skin/Breast: Reports: rash Neuro: Denies: headache(s) Psych: Denies: anxiety Endo: Denies: polyuria Rj/Lymph: Denies: easy bruising All/Imm: Denies: urticaria Medications/Allergies Home Medications Medication Instructions Recorded Confirmed Last Taken Type apixaban 5 mg tablet (Eliquis) 5 mg PO BID 07/05/19 06/19/22 06/19/22 History tamsulosin 0.4 mg capsule 0.4 mg PO BEDTIME 07/05/19 06/19/22 06/18/22 History acetaminophen 325 mg tablet 650 mg PO Q6H PRN Mild/Mod Pain Or 07/09/19 06/19/22 Unknown Rx Temp >/= 101 #30 tabs empagliflozin 25 mg tablet 25 mg PO DAILY 06/24/21 06/19/22 10/07/21 08:00 History escitalopram oxalate 20 mg tablet 10 mg PO .every other day 06/24/21 06/19/22 08:00 History fluticasone fur. 100 mcg-umeclid 1 inh inhalation DAILY 06/24/21 06/19/22 Unk nown History 62.5 mcg-vilant 25 mcg inhalat.powder formoterol fumarate 20 mcg/2 mL 2 ml inhalation BID #120 mL 06/24/21 06/19/22 Unknown Rx solution for nebulization (Perforomist) revefenacin 175 mcg/3 mL solution 175 mcg (3 mL) inhalation DAILY 06/24/21 06/19/22 06/18/22 Rx for nebulization (Yupelri) #90 mL potassium chloride 8 mEq 8 meq PO DAILY #90 tabs 06/25/21 06/19/22 06/19/22 Rx tablet,extended release (Klor-Con) atorvastatin 20 mg tablet 20 mg PO DAILY #90 tabs 07/20/21 06/19/22 10/07/21 08:00 Rx budesonide 0.5 mg/2 mL suspension 0.5 mg (2 mL) inhalation BID #120 08/10/21 06/19/22 Unknown Rx for nebulization (Pulmicort) mL isosorbide mononitrate 30 mg 30 mg PO DAILY #90 tabs 08/26/21 06/19/22 10/07/21 08:00 Rx tablet,extended release 24 hr glipizide 10 mg tablet, extended 10 mg PO BID 09/20/21 06/19/22 06/19/22 History release 24 hr amiodarone 200 mg tablet 400 mg PO DAILY #180 tabs 10/18/21 06/19/22 06/19/22 Rx magnesium L-lactate 84 mg 84 mg PO BID #180 tabs 12/27/21 06/19/22 06/19/22 Rx tablet,extended release (Magtab) ibuprofen 800 mg tablet 800 mg PO Q8H PRN pain #30 tabs 12/30/21 06/19/22 Un known Rx furosemide 20 mg tablet (Lasix) 40 mg PO DAILY 04/05/22 06/19/22 Unknown History carvedilol 25 mg tablet 12.5 mg PO BID #60 tabs 04/11/22 06/19/22 Unknown Rx alprazolam 0.5 mg tablet 0.5 - 1 mg PO BID PRN Anxiety 06/19/22 06/19/22 Unknown History Allergies Allergy/AdvReac Type Severity Reaction Status Date / Time azithromycin [From Zithromax] Allergy unknown Verified 04/29/22 11:21 metformin Allergy Unknown Verified 04/29/22 11:21 PFSH Acute PFSH: Medical History Atrial fibrillation COPD (chronic obstructive pulmonary disease) Diabetes mellitus Erectile dysfunction Hyperlipidemia Hypertension Hypertriglyceridemia Ventricular tachycardia Surgical History (Updated 06/19/22 @ 19:04 by Radames Dang MD) History of tonsillectomy and adenoidectomy Hx of cataract extraction Hx of umbilical hernia repair S/P colonoscopic polypectomy Family History Father CAD (coronary artery disease), Onset Age: 50 Cancer Lung disease Mother Hyperlipidemia Hypertension Denies family history of Diabetes Clotting disorder Dementia Psychiatric illness Chronic kidney disease (CKD) Suicide Anesthesia complication Bleeding disorder Family history of premature coronary artery disease Social History Smoking and tobacco status: former smoker Quit status (tobacco): has quit using tobacco Year quit tobacco: 2011 Former qu it date comment: 2ppd x 42 years Alcohol intake: never Vitals/I&O/Wt Last Vital Signs Temp 97.8 F 06/19/22 15:13 Pulse 48 L 06/19/22 16:14 Resp 23 H 06/19/22 16:14 BP 103/53 06/19/22 16:14 Pulse Ox 92 06/19/22 18:00 O2 Del Method 06/19/22 16:14 O2 Flow Rate 5 06/19/22 16:14 Weight last 48 hrs Weight 83.915 kg Physical Exam Narrative: S1, S2 variable Clinically euvolemic Abdomen soft Currently on 5 L No audible stridor or wheezing Skin rash right arm No signs of edema Pleasant and cooperative Appears stated age Data 06/19/22 15:45 06/19/22 15:45 Micro: Microbiology 06/19/22 16:15 Blood Culture - Preliminary Blood SPECIMEN COLLECTED 06/19/22 16:20 Blood Culture - Preliminary Blood SPECIMEN COLLECTED A&P Assessment and plan (1) Bradycardia, sinus: (2) Community acquired pneumonia: Qualifiers: Laterality: unspecified laterality Qualified Code(s): J18.9 - Pneumonia, unspecified organism (3) Photosensitivity dermatitis due to sun: (4) Ischemic cardiomyopathy: (5) Intermittent atrial fibrillation: (6) COPD (chronic obstructive pulmonary disease): Qualifiers: COPD type: unspecified COPD Qualified Code(s): J44.9 - Chronic obstructive pulmonary disease, unspecified (7) Diabetes mellitus: Plan Acute COPD exacerbation Persistent pneumonia, requested CT chest Patient is still requiring 5 L which he uses at home Concern for bilateral pneumonia however patient is stating he was diagnosed with similar radiologic finding 3 weeks ago I will give him ceftriaxone and azithromycin 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 fib, hold Coreg for now continue Eliquis Diastolic CHF no acute exacerbation request echo serial troponin EKG History of neurogenic tumor paravertebral soft mass, positive PET scan findings No metastatic disease Full code Cardiac diet DVT prophylaxis covered with Eliquis Attestations Medical Necessity Statement*: Anticipating discharge within 48 hours Time Spent in Patient Care: 40 Coding Level of Care Code Acute Code for Chg Fwd Diagnoses Bradycardia, sinus R00.1 Community acquired pneumonia J18.9 Laterality: unspecified laterality Photosensitivity dermatitis due to sun L56.8 Ischemic cardiomyopathy I25.5 Intermittent atrial fibrillation I48.0 COPD (chronic obstructive pulmonary disease) J44.9 COPD type: unspecified COPD Diabetes mellitus E11.9
[2022-06-19 18:33] VITALS: PULSE 50; RESP 18; O2SAT 93
--- NOTE | 2022-06-19 18:50 | CTR_ITS ---
PROCEDURE INFORMATION: Exam: CT Chest Without Contrast; Diagnostic Exam date and time: 06/19/2022 7:23 PM Age: 66 years old Clinical indication: Shortness of breath; Additional info: Persistent pna, hypoxia TECHNIQUE: Imaging protocol: Diagnostic computed tomography of the chest without contrast. Radiation optimization: All CT scans at this facility use at least one of these dose optimization techniques: automated exposure control; mA and/or kV adjustment per patient size (includes targeted exams where dose is matched to clinical indication); or iterative reconstruction. COMPARISON: CT angio chest PE protcl [id number] 05/14/2021 11:30 AM RADIATION DOSE METRICS: Total DLP (mGy-cm): 420.37 FINDINGS: Lungs: Severe centrilobular emphysema. Multiple calcified granulomas in both lungs. Irregular scattered nodular consolidations scattered throughout the right lung, the largest measuring 3.6 cm. Dense consolidation in the medial left upper lobe. Dependent atelectasis in both lower lobes. Pleural spaces: Small bilateral pleural effusions, right slightly greater than left. No pneumothorax. Heart: Small pericardial effusion. The heart size is normal. Coronary arteries: Mild coronary artery calcifications. Lymph nodes: Prominent mediastinal and hilar lymph nodes are most likely reactive. Vasculature: Unremarkable. No aortic aneurysm. Liver: Hyperdense liver, most likely related to medications. Intraperitoneal space: Mild ascites in the upper abdomen. Bones/joints: Mild thoracic curvature and degenerative changes. No fracture. Soft tissues: Unremarkable. CT/CT chest wo con [id number] IMPRESSION: 1. Multiple bilateral irregular consolidations most likely represent pneumonia. Superimposed neoplasm cannot be entirely excluded. Close CT follow-up in 2 months recommended to confirm resolution following treatment. 2. Pleural effusions. 3. Severe emphysema. 4. Ascites. COMMENTS: In the absence of a history or active diagnosis of lung cancer, it is recommended that this patient with emphysema be evaluated for enrollment in a low dose CT lung cancer screening program.
[2022-06-19 19:47] VITALS: BP 91/52; PULSE 51; RESP 16; TEMP 36.6; O2SAT 92
[2022-06-19 20:23] LABS: Lactic Acid level (Lactate) 1.4 mmol/L (0.5-2.2)
[2022-06-19 20:25] LABS: Troponin 5 6HR 21.17 ng/L (0-15)
[2022-06-19 20:27] LABS: Troponin 5 6HR Delta -2.83 ng/L (0-12)
[2022-06-19 20:29] VITALS: PULSE 51; RESP 17; O2SAT 93
[2022-06-19] MEDS: ipratropium-albuterol 3 mL Neb INHALATION (20:29)
[2022-06-19 20:32] LABS: NT Pro B Type Natriuretic Pept 7936 pg/mL (0-125)
[2022-06-19] MEDS: tamsulosin 0.4 mg Capsule PO (20:54)
--- NOTE | 2022-06-19 21:28 | ECG_ITS ---
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 Measurements Intervals [place] Rate: 52 P: 76 WV: 160 QRS: 114 QRSD: 126 T: 60 QT: 414 QTc: 388 Interpretive Statements SINUS BRADYCARDIA RIGHT AXIS DEVIATION [QRS AXIS > 100] RIGHT BUNDLE BRANCH BLOCK [120+ ms QRS DURATION, UPRIGHT V1, 40+ ms S IN I/aVL/V4/V5/V6] POSSIBLE ANTERIOR MYOCARDIAL INFARCTION , OF INDETERMINATE AGE [30 ms Q WAVE IN V3/V4, OR R < 0.2 mV IN V4] MODERATE T-WAVE ABNORMALITY, CONSIDER LATERAL ISCHEMIA [-0.1+ mV T-WAVE IN I/aVL/V5/V6] Compared to ECG 06/19/2022 18:29:38 Right-axis deviation now present Myocardial infarct finding now present T-wave abnormality still present Possible ischemia still present Electronically Signed On 06-20-2022 7:16:35 DOCUMENTATION SPECIALIST by Karson Espinosa M.D. [id number]
[2022-06-20] VITALS (11 sets, daily range): BP systolic 103–157; BP diastolic 49–83; PULSE 53–79; RESP 16–22; TEMP 36.4–36.9; O2SAT 89–92
[2022-06-20 02:02] LABS: Basophils % 0.4 %; Eosinophils # 0.1 10^3/uL (0.0-0.8); Eosinophils % 1.3 %; Hematocrit 37.8 % (42.0-52.0); Hemoglobin 11.8 g/dL (11.7-16.6); Lymphocytes % 12.2 %; Mean Corpuscular HGB Conc 31.2 g/dL (30.0-36.0); Mean Corpuscular Hemoglobin 27.4 pg (28.0-34.0); Mean Corpuscular Volume 87.7 fl (80-94); Mean Platelet Volume 10.6 fL (7.4-10.4); Monocytes # 0.7 10^3/uL (0.2-0.9); Monocytes % 8.8 %; Neutrophils % 76.5 %; Nucleated Red Blood Cells % 0 %; Platelet Count 197 10^3/cmm (130-400); Red Blood Count 4.31 10^6/uL (4.1-5.3); Red Cell Distribution Width 16.9 % (12.1-15.1); White Blood Count 8.3 10^3/uL (4.0-10.0)
[2022-06-20 02:17] LABS: Troponin 5 6HR 21.01 ng/L (0-15)
[2022-06-20 02:19] LABS: Blood Urea Nitrogen 20 mg/dL (8-23); Calcium 7.8 mg/dL (8.5-10.5); Carbon Dioxide 27 mmol/L (22-29); Chloride 97 mmol/L (98-107); Glomerular Filtration Rate 66.6 mL/min (90-130); Glucose 130 mg/dL (65-115); Osmolality Calculated 278 mOsm/kg (285-295); Sodium 132 mmol/L (136-145)
[2022-06-20 02:23] LABS: Troponin 5 6HR Delta -2.99 ng/L (0-12)
[2022-06-20 02:25] LABS: Anion Gap 13.1 (5-19); Potassium 5.1 mmol/L (3.5-5.1)
--- NOTE | 2022-06-20 06:00 | USCV_ITS ---
Sigrid Ralph Age: 66 Gender: M : 1955 Exam Date: 06/20/2022 09:43 Ordering Phys: Radames Dang MD Technologist: Christos Kenyon Exam Location: [facility] [place] Indication: chf short of breath BP: 132 / 72 HR: 38 Rhythm: Sinus Technical Quality: Adequate MEASUREMENTS (Male / Female) Normal Values 2D ECHO LV Diastolic Diameter PLAX 4.5 cm 4.2 - 5.9 / 3.9 - 5.3 cm LV Systolic Diameter PLAX 2.7 cm IVS Diastolic Thickness 1.2 cm 0.6 - 1.0 / 0.6 - 0.9 cm IVS Systolic Thickness 1.5 cm LVPW Diastolic Thickness 1.1 cm 0.6 - 1.0 / 0.6 - 0.9 cm LVPW Systolic Thickness 1.6 cm LVOT Diameter 2.1 cm LV Ejection Fraction 2D Teich 71.5 % LV Ejection Fraction MOD 2C 59.5 % LV Ejection Fraction 2C AL 62.3 % LA Diameter 3.5 cm Aorta at Sinotubular Diameter 2.9 cm IVC Diameter 1.6 cm M-MODE Aortic Annulus Diameter 3.6 cm LA Ao Ratio MM 0.9 MV E Point Septal Separation 0.7 cm DOPPLER AV Peak Velocity 207.0 cm/s LVOT Peak Velocity 113.0 cm/s AV Area Cont Eq vti 2.1 cm squared AV Area Cont Eq pk 1.9 cm squared MV Area PHT 5.0 cm squared Mitral E to A Ratio 0.9 MV E' Velocity 50.5 cm/s Mitral E to MV E' Ratio 8.2 Mitral E to LV E' Lateral Ratio 7.4 Mitral E to LV E' Septal Ratio 9.3 TR Peak Velocity 322.3 cm/s TR Peak Gradient 41.6 mmHg TV Peak E Velocity 135.0 cm/s Right Atrial Pressure 3.0 mmHg Pulmonary Artery Systolic Pressu 44.6 mmHg PV Peak Velocity 103.0 cm/s RV Acceleration Time 0.1 s FINDINGS Left Ventricle Left ventricle is normal in size. LV systolic function is nromal with EF of 55-60%. Right Ventricle Normal in size and function Right Atrium Left Atrium Normal in size Mitral Valve Structurally normal mitral valve. Mild mitral regurgitation. Aortic Valve Grossly normal. No significant stenosis or regurgitation. Tricuspid Valve Trace tricuspid regurgitation. RVSP is 55 to 60 mmHg. This is consistent with moderate pulmonary hypertension. Pulmonic Valve Not well visualized. Pericardium Normal Aorta Normal in size IVC Appears to be normal CONCLUSIONS LV systolic function is normal with EF of 55 to 60% Mild mitral regurgitation Trace tricuspid regurgitation. Moderate pulmonary hypertension Compared to prior echocardiogram from 2019, no significant changes seen. Devante Colindres MD (Electronically Signed) Final Date: 20 June 2022 18:18 S
[2022-06-20] MEDS: ipratropium-albuterol 3 mL Neb INHALATION ×3 (07:59→20:03)
[2022-06-20] MEDS: apixaban 5 mg Tablet PO ×2 (08:18→16:54)
[2022-06-20] MEDS: doxycycline 100 mg Tablet PO ×2 (08:18→16:54)
[2022-06-20] MEDS: cefTRIAXone 1,000 MG in sodium chloride 0.9% (plus) 50 ML 100 MG IV (08:18)
[2022-06-20] MEDS: amiodarone 200 mg Tablet 400 MG PO (08:18)
--- NOTE | 2022-06-20 10:41 | PC.CHAP ---
Pastoral Care Encounter/Spiritual Assessment Type of Contact [] Declined corporate representative visit [] Patient/Family/Request visit [] Outpatient visit [] Follow-up visit [] Physician referral [] Code/Alert [x] Routine visit [] Staff referral [] Actively dying [] Patient sleeping [] Family support [] [] Out of room [] Palliative care [] [] Receiving care in room [] Pre-surgical visit [] Trauma [] Long length of stay [] ICU visit [] Other: Relational/Emotional Strength [] Patient feels connected with others/family/visitors/staff [] Distress [] Loneliness/isolation [] Abandonment Spirituality of Patient [] Person of Mary Kay [] Attends Religious of their Mary Kay [] Believes in Prayer [] Reads Bible or Amish materials [x] There are Spiritual issues to be addressed Telephone Coin Box Collector Interventions [x] Prayer [x] Active listening [x] Non-anxious presence [] Spiritual/emotional support [] Crisis/trauma care [] Spiritual counseling [] Bereavement support [] Provided bereavement packet [] Provided Bible/devotional materials [] Provided toy/stuffed animal, coloring book to patient or family member [] Provided Communion [] Anointing/[place]wan [] Salvation [x ] Completed spiritual assessment [] Other: Impact on Illness or Injury [] Angry [] Fearful [] Anxious [] Often cries [] Exhaustion [] Unable to work [] Unable to attend bahai [] Unable to walk/stand [] Unable to read [] Unable to drive [] Unable to eat/drink [] Unable to sleep [] Unable to be with family [] Patient intubated [] Other: Summary Time spent with patient 10 min
--- NOTE | 2022-06-20 11:50 | PM.PN ---
Subjective Subjective: Seen this morning. Patient he feels he is short of breath and this is not his baseline. He usually does have shortness of breath and his usual daily life however now feels he is worsening. He says he was recently diagnosed with pneumonia 3 weeks ago and was kept in the hospital for a day and a half and then discharged home. He is resting comfortably in bed on 5 L nasal cannula which is his baseline. Vitals/I&O/Wt Last Vital Signs Temp 98.4 F 06/20/22 07:36 Pulse 61 06/20/22 08:07 Resp 18 06/20/22 07:59 BP 133/67 06/20/22 07:36 Pulse Ox 92 06/20/22 07:59 O2 Del Method 06/20/22 07:59 O2 Flow Rate 5 06/20/22 07:59 06/19/22 06/20/22 06/20/22 22:59 06:59 14:59 Intake Total 250 / 250 200 / 450 410 / 410 Output Total 400 / 400 Balance 250 / 250 -200 / 50 410 / 410 Weight last 48 hrs Weight 83.915 kg Physical Exam Narrative: General: Alert oriented x3, patient seen laying in bed flat on 5 L nasal cannula. HEENT: Normocephalic, atraumatic, EOMI, breathing comfortably. No conversational dyspnea, no acute respiratory distress. Cardio: Regular rate rhythm, normal S1-S2 Respiratory: Clear to auscultation bilaterally with mildly diminished at bases. GI: Abdomen soft, nontender, nondistended, bowel sounds + Extremities: No bilateral lower extremity edema. Data 06/20/22 01:42 06/20/22 01:42 Micro: Microbiology 06/19/22 16:15 Blood Culture - Preliminary Blood SPECIMEN COLLECTED 06/19/22 16:20 Blood Culture - Preliminary Blood SPECIMEN COLLECTED A&P Assessment and plan (1) Community acquired pneumonia: Qualifiers: Laterality: unspecified laterality Qualified Code(s): J18.9 - Pneumonia, unspecified organism (2) Bronchitis, acute: (3) Atypical chest pain: (4) COPD (chronic obstructive pulmonary disease): Qualifiers: COPD type: unspecified COPD Qualified Code(s): J44.9 - Chronic obstructive pulmonary disease, unspecified (5) Atrial fibrillation: (6) Pneumonia: (7) Hyperlipidemia: Qualifiers: Hyperlipidemia type: mixed hyperlipidemia Qualified Code(s): E78.2 - Mixed hyperlipidemia (8) Diabetes mellitus: (9) Hypertension: Plan #Bilateral pneumonia?? #COPD exacerbation #Exertional shortness of breath and patient with significant smoking ziambnv-weyjyuhyntowui-ufmkyo emphysema and nonobstructive CAD # Former cigarette smoker, quit 2011, 2 ppd x 43 year Hx. 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 #History of neurogenic tumor paravertebral soft mass, positive PET scan findings -CT chest does show multiple bilateral irregular consolidations most likely represent pneumonia. Superimposed neoplasm cannot be excluded entirely. Close CT follow-up in 2 months recommended to confirm resolution following treatment. ? Patient currently on 5 L nasal cannula at baseline and the same during hospital stay as well. ? He states he had similar imaging findings few weeks ago at another hospital. ? WBC count 8.3. Will check procalcitonin. ? Continue ceftriaxone and doxycycline for now. ? Patient does have history of severe emphysema and oxygen exchange impairment. It was recommended to go see pulmonary rehab however he said that he was working Monday to Monday and he could not go very easily. This is documented in his note when he saw pulmonology last year in October. I will discuss this with him. Given patient's history he would definitely benefit from pulmonary rehab. ? Does not appear clinically fluid overload at this time. He is on Lasix 40 mg daily. ? Patient is on performance Yupelri and inhaled budesonide at home along with Trelegy. I will discussed with him to ensure that he is continuing the above. -We will redo home oxygen evaluation at discharge. - Place on solumedrol 40 q8H - Lasix 40 IV x1 Full code DVT prophylaxis: On Eliquis. Attestations Medical Necessity Statement*: Continue continue inpatient IV antibiotics and inhaled DuoNeb and budesonide. Possible discharge in next 24 hours. Coding Level of Care Code Acute Code for [facility] Diagnoses Community acquired pneumonia J18.9 Laterality: unspecified laterality Bronchitis, acute J20.9 Atypical chest pain R07.89 COPD (chronic obstructive pulmonary disease) J44.9 COPD type: unspecified COPD Atrial fibrillation I48.91 Pneumonia J18.9 Hyperlipidemia E78.2 Hyperlipidemia type: mixed hyperlipidemia Diabetes mellitus E11.9 Hypertension I10
[2022-06-20] MEDS: acetaminophen 325 mg Tablet 650 MG PO (12:15)
[2022-06-20] MEDS: lactulose oral liq 20 gm/30 mL UDC PO (12:20)
[2022-06-20] MEDS: ondansetron 2 mg/ML SDV 2 mL 4 MG IVP (13:15)
[2022-06-20 13:57] LABS: Procalcitonin 0.29 ng/mL (0-0.5)
[2022-06-20] MEDS: morphine 4 mg/mL SDV 1 mL 1 MG IVP (15:07)
[2022-06-20] MEDS: budesonide 0.5 mg/2 mL Neb INHALATION (20:03)
[2022-06-20] MEDS: tamsulosin 0.4 mg Capsule PO (21:54)
[2022-06-20 22:20] LABS: Glucose Point of Care 413 mg/dL (70-110)
[2022-06-20] MEDS: insulin lispro 100 unit/1 mL SUBCUT (22:22)
[2022-06-21] VITALS (8 sets, daily range): BP systolic 143–161; BP diastolic 70–77; PULSE 52–68; RESP 15–17; TEMP 36.4–36.8; O2SAT 90–94
--- NOTE | 2022-06-21 00:03 | PC.NURSE ---
Patient refused lactulose. Dr Lima notified.
[2022-06-21 04:14] LABS: Basophils % 0.1 %; Hematocrit 38.6 % (42.0-52.0); Lymphocytes # 0.6 10^3/uL (0.8-4.8); Lymphocytes % 7.4 %; Mean Corpuscular HGB Conc 31.1 g/dL (30.0-36.0); Mean Corpuscular Hemoglobin 27.5 pg (28.0-34.0); Mean Corpuscular Volume 88.5 fl (80-94); Mean Platelet Volume 10.4 fL (7.4-10.4); Monocytes # 0.3 10^3/uL (0.2-0.9); Monocytes % 3.7 %; Neutrophils % 87.7 %; Nucleated Red Blood Cells % 0 %; Platelet Count 232 10^3/cmm (130-400); Red Blood Count 4.36 10^6/uL (4.1-5.3); White Blood Count 8.3 10^3/uL (4.0-10.0)
[2022-06-21 06:57] LABS: Glucose Point of Care 199 mg/dL (70-110)
[2022-06-21] MEDS: budesonide 0.5 mg/2 mL Neb INHALATION (07:28)
[2022-06-21] MEDS: ipratropium-albuterol 3 mL Neb INHALATION ×2 (07:28→11:23)
[2022-06-21] MEDS: insulin lispro 100 unit/1 mL SUBCUT ×2 (07:29→12:34)
[2022-06-21 07:44] LABS: Anion Gap 15.1 (5-19); Blood Urea Nitrogen 24 mg/dL (8-23); Calcium 8.4 mg/dL (8.5-10.5); Carbon Dioxide 25 mmol/L (22-29); Chloride 98 mmol/L (98-107); Glomerular Filtration Rate 112.1 mL/min (90-130); Glucose 220 mg/dL (65-115); Osmolality Calculated 287 mOsm/kg (285-295); Potassium 5.1 mmol/L (3.5-5.1); Sodium 133 mmol/L (136-145)
[2022-06-21] MEDS: apixaban 5 mg Tablet PO (08:04)
[2022-06-21] MEDS: doxycycline 100 mg Tablet PO (08:04)
[2022-06-21] MEDS: cefTRIAXone 1,000 MG in sodium chloride 0.9% (plus) 50 ML 100 MG IV (08:04)
[2022-06-21] MEDS: amiodarone 200 mg Tablet 400 MG PO (08:04)
[2022-06-21 11:13] LABS: Glucose Point of Care 346 mg/dL (70-110)
--- NOTE | 2022-06-21 14:28 | PC.SOCIAL ---
Cm spoke to patient who stated his nebulizer at home was broke and he needed a new one, obtained choice and neb order faxed to HOME
--- NOTE | 2022-06-21 14:37 | PM.DCS ---
Discharge Providers Date of Admission: 06/19/22 17:26 Date of Discharge: June 21, 2022 Attending Provider at Admission: Radames Dang MD Attending Provider at Discharge: Emilie Reyes MD Primary Care Provider: Danielle Hurt APN Diagnoses at Discharge Discharge Diagnosis (1) Community acquired pneumonia: Status: Acute Qualifiers: Laterality: unspecified laterality Qualified Code(s): J18.9 - Pneumonia, unspecified organism (2) Bronchitis, acute: Status: Acute (3) Atypical chest pain: Status: Resolved (4) COPD (chronic obstructive pulmonary disease): Status: Acute Qualifiers: COPD type: unspecified COPD Qualified Code(s): J44.9 - Chronic obstructive pulmonary disease, unspecified (5) Atrial fibrillation: Status: Chronic (6) Pneumonia: Status: Acute (7) Hyperlipidemia: Status: Acute Qualifiers: Hyperlipidemia type: mixed hyperlipidemia Qualified Code(s): E78.2 - Mixed hyperlipidemia (8) Diabetes mellitus: Status: Acute (9) Hypertension: Status: Acute Reason for Visit Reason for Visit: Weakness, Low o2, fatigue Brief History: As per Dr. Dang Ralph Matta is a 66 year old male with history of A. fib, diabetes, COPD, uses 5 L of oxygen, was at [facility] in May with bilateral pneumonia presenting today with worsening shortness of breath.? He has not noticed any fever, he has been experiencing intermittent chest pain which she is describing as mainly on exertion, he carries history of congestive heart failure, takes Lasix, he has not noticed any nausea, vomiting, diarrhea.? He thinks his symptoms started when he fell late May last year and since then he has been feeling weak and lethargic at [facility] he was discharged after 2 days.? He is back in the hospital with worsening of shortness of breath.? 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 In the ER he has been diagnosed with pneumonia he is not septic, he has received antibiotics, currently on 5 L which is his home requirement, he does not have any clinical signs of fluid overload we will request EKG, troponin series, echo continue antibiotics Hospital Course Hospital Course Patient admitted for shortness of breath, COPD exacerbation, questionable bilateral pneumonia. He does have a history of severe emphysema. Patient stated that he was not using his Perforomist, Yupecorali and but desonide nebulizers at home. He says he should have but he was not using them. He states his shortness of breath got to the point that he had to come to the hospital. He is on 5 L nasal cannula at baseline. He states his nebulizer is broken and would like a new prescription. He was given a prescription for new nebulizer at this time. He is also agreeable to go to pulmonary rehab which will be set up for him. I have discussed with case management they will be reaching out to pulmonology clinic to have that arranged for him. He will get a call from the hospital regarding arrangements. We will treat for pneumonia at this time with Augmentin. He is allergic to azithromycin and levofloxacin. Patient is to have a biopsy done for CT chest findings. Potential biopsy done as an outpatient. He is to follow-up with Dr. To at discharge. He will be discharged home in stable condition at this time. Physical Exam Narrative: General: Alert oriented x3, patient seen laying in bed flat on 5 L nasal cannula at his baseline. HEENT: Normocephalic, atraumatic, EOMI, breathing comfortably. No conversational dyspnea, no acute respiratory distress. Cardio: Regular rate rhythm, normal S1-S2 Respiratory: Clear to auscultation bilaterally with mildly diminished at bases. GI: Abdomen soft, nontender, nondistended, bowel sounds + Extremities: No bilateral lower extremity edema. Discharge Data Studies Completed and Pending Completed Studies During Hospitalization Category Date Time Status CT chest wo con [id number] Routine Cat Scan 06/19/22 18:50 Completed XR chest 1V portable [id number] Stat Exams 06/19/22 15:47 Completed CV. echo complete* [id number] Routine Ultrasound 06/20/22 06:00 Completed Pending at discharge Category Date Time Status Blood Culture Stat Lab 06/19/22 16:15 Results Sputum Culture and Gram Stain Stat Lab 06/20/22 11:59 Uncollected Radiology Impressions Chest X-Ray 06/19/22 15:47 IMPRESSION: Bilateral multilobar pneumonia. Radiographic follow-up is recommended to document resolution and to exclude an underlying neoplastic process. Chest CT 06/19/22 18:50 IMPRESSION: 1. Multiple bilateral irregular consolidations most likely represent pneumonia. Superimposed neoplasm cannot be entirely excluded. Close CT follow-up in 2 months recommended to confirm resolution following treatment. 2. Pleural effusions. 3. Severe emphysema. 4. Ascites. COMMENTS: In the absence of a history or active diagnosis of lung cancer, it is recommended that this patient with emphysema be evaluated for enrollment in a low dose CT lung cancer screening program. Laboratory Results WBC 8.3 10^3/uL (4.0-10.0) 06/21/22 03:49 RBC 4.36 10^6/uL (4.1-5.3) 06/21/22 03:49 Hgb 12.0 g/dL (11.7-16.6) 06/21/22 03:49 Hct 38.6 % (42.0-52.0) L 06/21/22 03:49 MCV 88.5 fl (80-94) 06/21/22 03:49 MCH 27.5 pg (28.0-34.0) L 06/21/22 03:49 MCHC 31.1 g/dL (30.0-36.0) 06/21/22 03:49 RDW 17.0 % (12.1-15.1) H 06/21/22 03:49 Plt Count 232 10^3/cmm (130-400) 06/21/22 03:49 MPV 10.4 fL (7.4-10.4) 06/21/22 03:49 Neut % (Auto) 87.7 % 06/21/22 03:49 Lymph % (Auto) 7.4 % 06/21/22 03:49 Tillman % (Auto) 3.7 % 06/21/22 03:49 Eos % (Auto) 0.0 % 06/21/22 03:49 Baso % (Auto) 0.1 % 06/21/22 03:49 Neut # (Auto) 7.30 10^3/uL (1.8-7.7) 06/21/22 03:49 Lymph # (Auto) 0.6 10^3/uL (0.8-4.8) L 06/21/22 03:49 Tillman # (Auto) 0.3 10^3/uL (0.2-0.9) 06/21/22 03:49 Eos # (Auto) 0.0 10^3/uL (0.0-0.8) 06/21/22 03:49 Baso # (Auto) 0.0 10^3/uL (0.0-0.1) 06/21/22 03:49 Nucleated RBC % (auto) 0 % 06/21/22 03:49 Nucleated RBCs # 0.0 /100WBC 06/21/22 03:49 Sodium 133 mmol/L (136-145) L 06/21/22 07:07 Potassium 5.1 mmol/L (3.5-5.1) 06/21/22 07:07 Chloride 98 mmol/L (98-107) 06/21/22 07:07 Carbon Dioxide 25 mmol/L (22-29) 06/21/22 07:07 Anion Gap 15.1 (5-19) 06/21/22 07:07 BUN 24 mg/dL (8-23) H 06/21/22 07:07 Creatinine 0.7 mg/dL (0.7-1.2) 06/21/22 07:07 GFR Calculation 112.1 mL/min (90-130) 06/21/22 07:07 Glucose 220 mg/dL (65-115) H 06/21/22 07:07 POC Glucose 346 mg/dL (70-110) H 06/21/22 11:11 Calculated Osmolality 287 mOsm/kg (285-295) 06/21/22 07:07 Lactic Acid 3.0 mmol/L (0.5-2.2) H 06/19/22 15:45 Lactic Acid (Sepsis) 1.4 mmol/L (0.5-2.2) 06/19/22 19:54 Calcium 8.4 mg/dL (8.5-10.5) L 06/21/22 07:07 Troponin T Baseline 24 ng/L (0-15) H 06/19/22 15:45 Troponin T 120 Minute 20.88 ng/L (0-15) H 06/19/22 17:24 Delta Troponin T -3.12 ABS# (0-10) L 06/19/22 17:24 Troponin T Hi Sens 6Hr 21.01 ng/L (0-15) H 06/20/22 01:42 Troponin T Hi Sens 6Hr Delta -2.99 ng/L (0-12) L 06/20/22 01:42 NT-Pro-B Natriuret Pep 7936 pg/mL (0-125) H 06/19/22 19:54 Procalcitonin 0.29 ng/mL (0-0.5) 06/20/22 01:42 Influenza Type A Ag negative (Negative) 06/19/22 16:10 Influenza Type B Ag negative (Negative) 06/19/22 16:10 SARS-CoV-2 Ag (Rapid) negative (Negative) 06/19/22 16:10 Vitals Last Vital Signs Temp 97.8 F 06/21/22 12:00 Pulse 63 06/21/22 12:00 Resp 15 06/21/22 12:00 BP 148/70 06/21/22 12:00 Pulse Ox 90 06/21/22 12:00 O2 Del Method 06/21/22 12:00 O2 Flow Rate 5 06/21/22 11:25 Discharge Plan Discharge Patient Disposition: Home Condition: Stable Prescriptions: New amoxicillin-pot clavulanate 875-125 mg tablet 1 tab PO BID 7 Days Qty: 14 0RF prednisone 10 mg tablet See Rx Instructions .ROUTE .COMPLEX Qty: 38 0RF Rx Instructions: 40 mg BID x1d 40 mg QD x 3d 30 mg x3d 20 mg x3d 10 mg x3d Continued glipizide 10 mg tablet extended release 24hr 10 mg PO BID empagliflozin 25 mg tablet 25 mg PO DAILY escitalopram oxalate 20 mg tablet 10 mg PO .every other day tlwzexvavjn-kykvivyug-thvoukos 100-62.5-25 mcg blister with device 1 inh inhalation DAILY formoterol fumarate [Perforomist] 20 mcg/2 mL solution for nebulization 2 ml inhalation BID Qty: 120 5RF Yupelri 175 mcg/3 mL solution for nebulization 175 mcg inhalation DAILY Qty: 90 5RF ibuprofen 800 mg tablet 800 mg PO Q8H PRN (Reason: pain) Qty: 30 0RF Lasix 20 mg tablet 40 mg PO DAILY Rx Instructions: Take 2 tabs daily x 5 days, then 1 tab daily thereafter amiodarone 200 mg tablet 400 mg PO DAILY Qty: 180 3RF Rx Instructions: Dose reduced potassium chloride [Klor-Con 8] 8 mEq tablet extended release 8 meq PO DAILY Qty: 90 3RF atorvastatin 20 mg tablet 20 mg PO DAILY Qty: 90 3RF budesonide [Pulmicort] 0.5 mg/2 mL suspension for nebulization 0.5 mg inhalation BID Qty: 120 5RF isosorbide mononitrate 30 mg tablet extended release 24 hr 30 mg PO DAILY Qty: 90 1RF Rx Instructions: Start taking 1 tab daily, gradually increasing to 2 tabs daily magnesium L-lactate [Magtab] 84 mg tablet extended release 84 mg PO BID Qty: 180 3RF tamsulosin 0.4 mg Capsule 0.4 mg PO BEDTIME Eliquis 5 mg Tablet 5 mg PO BID acetaminophen 325 mg Tablet 650 mg PO Q6H PRN (Reason: Mild/Mod Pain Or Temp >/= 101) Qty: 30 0RF alprazolam 0.5 mg Tablet 0.5 - 1 mg PO BID PRN (Reason: Anxiety) Held carvedilol 25 mg tablet 12.5 mg PO BID Qty: 60 5RF Hold Instructions: see pcp Rx Instructions: must administer with a meal/food Discharge Orders: Discharge Order (Routine); Ordered 06/21/22 Ordered By: Emilie Reyes Other Ambulatory Orders: DME: Nebulizer with Neb Kit (Order) Location: None Selected Ordered By: Emilie Reyes Referrals: DatarYusef MD [Physician] - 07/05/22 3:15 pm (keeping previously made appt.) Hurt,MARY Santos [Primary Care Provider] - 06/28/22 2:20 pm Discharge Diet: Usual diet and Cardiac Discharge Activity: Increase activity as tolerated and Oxygen as instructed Patient Instructions: Prednisone (By mouth), Amoxicillin/Clavulanate Potassium (By mouth), Pneumonia (GEN), Opioid Safety Activity Restrictions/Additional Instructions: Please continue to use her nebulized treatments as directed. Please try to stay compliant with your medication and nebulizer regimen. Ensure completion of your steroid course. Please follow-up with pulmonology as discussed during your hospital stay. Return to ER if worsening symptoms or new symptoms. Discharge Attestations Time Spent in Discharge Care*: greater than 30 min Quality Metrics Clinical Quality Measures [ No reported AMI, CVA or VTE this stay] Coding Level of Care Code Acute Chg FW DC note Diagnoses Community acquired pneumonia J18.9 Laterality: unspecified laterality Bronchitis, acute J20.9 Atypical chest pain R07.89 COPD (chronic obstructive pulmonary disease) J44.9 COPD type: unspecified COPD Atrial fibrillation I48.91 Pneumonia J18.9 Hyperlipidemia E78.2 Hyperlipidemia type: mixed hyperlipidemia Diabetes mellitus E11.9 Hypertension I10
== END 2022-06-21 14:20 | disposition home or self-care (01) ==
LOC: ER 17:25 → MEDSURG 17:40
PROVIDERS: Admitting Provider Internal Medicine; Emergency Provider Family Medicine; PCP Nurse Practitioner Family; Visit Provider Internal Medicine
DX: J18.9 Pneumonia, unspecified organism (principal); J20.9 Acute bronchitis, unspecified; R07.89 Other chest pain; J44.1 Chronic obstructive pulmonary disease with (acute) exacerbation; I48.91 Unspecified atrial fibrillation; E78.2 Mixed hyperlipidemia; E11.9 Type 2 diabetes mellitus without complications; Z99.81 Dependence on supplemental oxygen; I11.0 Hypertensive heart disease with heart failure; I50.22 Chronic systolic (congestive) heart failure; Z87.891 Personal history of nicotine dependence; I45.10 Unspecified right bundle-branch block
CPT/HCPCS: 36415; 36416; 71045; 71250; 80048; 82962; 83605; 83880; 84145; 84484; 85025; 87040; 87426; 87804; 93005; 93306; 94640; 96372; 96374; 96375; 99285; G0378; J0696; J1815; J2270; J2405; J2920; J7626

== ENCOUNTER 2022-06-26 15:12 | Inpatient (IN) | payer MEDICARE, SELFPAY ==
[2022-06-26] VITALS (24 sets, daily range): BP systolic 99–118; BP diastolic 54–68; PULSE 49–77; RESP 16–24; TEMP 36.7; O2SAT 90–95; BMI 25.8
--- NOTE | 2022-06-26 15:29 | W.ED.SOB ---
HPI - SOB/Dyspnea General: Chief Complaint: Shortness of Breath/Dyspnea Stated Complaint: SOB Time Seen by Provider: 06/26/22 15:29 History of Present Illness: HPI Narrative: Mr. Matta is a 66-year-old gentleman with history of COPD, atrial fibrillation, hypertension, hyperlipidemia, diabetes presenting to the emergency department due to shortness of breath. He has baseline chronic hypoxic respiratory failure and is at 5 L at home. He has essentially had progressive symptoms for 3 weeks. He endorses worsening dyspnea on exertion as well as orthopnea. Intensity symptoms moderate to severe. Course is worsened. No other specific changes in health, exacerbating, or alleviating factors identified. Onset (ago): week(s) Timing: progressively worsening Severity: severe Exacerbating factors: lying flat and exertion Relieving factors: nothing Known history of: COPD Associated symptoms: Reports other Review of Systems General: Reports: 10 or more systems reviewed and unremarkable except in HPI and below PFSH ED PFSH: Medical History Atrial fibrillation COPD (chronic obstructive pulmonary disease) Diabetes mellitus Erectile dysfunction Hyperlipidemia Hypertension Hypertriglyceridemia Ischemic cardiomyopathy Ventricular tachycardia Surgical History History of tonsillectomy and adenoidectomy Hx of cataract extraction Hx of umbilical hernia repair S/P colonoscopic polypectomy Family History Father CAD (coronary artery disease), Onset Age: 50 Cancer Lung disease Mother Hyperlipidemia Hypertension Denies family history of Diabetes Clotting disorder Dementia Psychiatric illness Chronic kidney disease (CKD) Suicide Anesthesia complication Bleeding disorder Family history of premature coronary artery disease Social History Smoking and tobacco status: former smoker Quit status (tobacco): has quit using tobacco Year quit tobacco: 2011 Former quit date comment: 2ppd x 42 years Alcohol intake: never Physical Exam Const: COMMON NORMALS: alert GENERAL APPEARANCE: cooperative, well developed and ill appearing HENMT: COMMON NORMALS: normocephalic and atraumatic HEAD & SCALP: normocephalic and atraumatic THROAT: posterior oropharynx normal Eye: COMMON NORMALS: conjunctivae normal CONJUNCTIVA: Yes conjunctivae normal SCLERA: sclerae normal Neck/C-Spine: COMMON NORMALS: supple GENERAL: Yes trachea midline Resp: EFFORT & INSPECTION: Yes labored AUSCULTATION: diminished lung sounds Cardio: COMMON NORMALS: regular rate and regular rhythm RATE: regular rate RHYTHM: regular rhythm GI: COMMON NORMALS: Soft to palpation PALPATION: Yes Soft to palpation and No Tenderness to palpation present (GI) Extremity: GENERAL: Yes normal exam except as noted and No edema Neuro: COMMON NORMALS: moves all extremities SENSORIUM/ORIENTATION: Yes alert and No Orientation impaired Psych: COMMON NORMALS: mental status grossly normal and Normal thought process present THOUGHT PROCESS: Normal thought process present Course Vital Signs: Vital signs: Vital Signs Temperature 97.8 F 07/02/22 12:03 Pulse Rate 73 07/02/22 12:03 Respiratory Rate 15 07/02/22 12:03 Blood Pressure 117/65 07/02/22 12:03 Pulse Oximetry 92 07/02/22 12:03 Oxygen Delivery Me thod 07/02/22 11:26 Oxygen Flow Rate 5 07/02/22 08:00 MDM - SOB/Dyspnea Medical Decision Making 66-year-old gentleman with chronic hypoxic respiratory failure and COPD presenting with worsening shortness of breath which has been progressive. Somewhat ill in appearance. Exam as above. EKG notable for sinus bradycardia, limited interpretation secondary to small QRS amplitude, nonspecific ST segment abnormalities and right bundle branch block. Labs with mild leukocytosis, normal hemoglobin and platelet count. Metabolic panel with evidence of intravascular dehydration despite likely volume overload with elevated glucose and transaminitis. Negative range 2-hour delta troponin. BNP is elevated. Chest x-ray abnormal and similar to prior. There is consolidation requires further evaluation. CT without evidence of PE, there are effusions and evidence of heart failure with volume overload. Incidental findings discussed with patient. Patient treated with Lasix, albuterol, steroids Given progressive nature of symptoms and worsening despite outpatient treatment as well as physical exam findings and ED evaluation I believe that inpatient management is appropriate for acute on chronic heart failure with likely COPD exacerbation and congestive hepatopathy versus other etiology. The results of ED evaluation were discussed with the patient including plan for admission due to requirement for level of care not available if discharged to prevent significant worsening/deterioration. Patient agreeable with plan. Discussed with hospitalist service who was agreeable to admit patient. Medical Records I reviewed the patient's medical records. Lab Data I reviewed the patient's lab results. 07/02/22 01:55 07/02/22 01:55 Labs/Radiology: Radiology Impressions Chest X-Ray 06/26/22 15:36 IMPRESSION: Continued findings of bilateral infiltrative change around the perihilar mid lung region and lower lungs with areas of partial consolidation and with associated mild basilar effusion. Slightly more consolidated appearance in the right lung base than prior exam, otherwise. Continued follow-up suggested. Chest/Abdomen/Pelvis CT 06/26/22 21:09 IMPRESSION: 1. There is no evidence for pulmonary emboli. 2. There are small bilateral pleural effusions. 3. Strandy and patchy opacities and some consolidation is seen superimposed over the pleural effusions and present within the right middle lobe and lingula possibly representing atelectasis although pneumonia cannot be excluded. 4. Mildly prominent pulmonary vasculature and some ground-glass opacities are seen in the lower hemithoraces, findings that could represent mild pulmonary edema. 5. There is a background of severe centrilobular emphysema, bronchiectasis and pulmonary fibrosis. IMPRESSION: 1. There is a small volume of ascites present. 2. Subtle increased density within the gallbladder lumen may represent gallbladder sludge. There is no findings to suggest cholecystitis however. 3. Two benign appearing cysts are seen in the left kidney, the largest measuring 2.8 cm. 4. Bilateral nonobstructing renal calculi 5. Diverticulosis, most numerous within the sigmoid colon. There are no findings to suggest diverticulitis. 6. Left inguinal hernia containing fat and fluid. 7. There is no evidence for occlusion, stenosis, aneurysmal dilatation or extravasation the visualized arteries of the abdomen and pelvis. COMMENTS: Consistent with the [employer]'s Incidental Findings Committee white paper (J Am Janel Radiol 2018): Any incidental renal lesion less than 1 cm or classified as too small to characterize, or any incidental cystic renal lesion characterized as simple-appearing, is likely benign. No follow-up imaging is recommended for these lesions per consensus recommendations based on imaging criteria. Abdomen Ultrasound 06/27/22 06:57 IMPRESSION: Minimal ascites. Insufficient for paracentesis. Laboratory Results WBC 10.1 10^3/uL (4.0-10.0) H 06/26/22 15:52 RBC 4.48 10^6/uL (4.1-5.3) 06/26/22 15:52 Hgb 12.0 g/dL (11.7-16.6) 06/26/22 15:52 Hct 38.9 % (42.0-52.0) L 06/26/22 15:52 MCV 86.8 fl (80-94) 06/26/22 15:52 MCH 26.8 pg (28.0-34.0) L 06/26/22 15:52 MCHC 30.8 g/dL (30.0-36.0) 06/26/22 15:52 RDW 17.5 % (12.1-15.1) H 06/26/22 15:52 Plt Count 253 10^3/cmm (130-400) 06/26/22 15:52 MPV 10.7 fL (7.4-10.4) H 06/26/22 15:52 Neut % (Auto) 83.7 % 06/26/22 15:52 Lymph % (Auto) 9.7 % 06/26/22 15:52 Parke % (Auto) 5.3 % 06/26/22 15:52 Eos % (Auto) 0.5 % 06/26/22 15:52 Baso % (Auto) 0.1 % 06/26/22 15:52 Neut # (Auto) 8.48 10^3/uL (1.8-7.7) H 06/26/22 15:52 Lymph # (Auto) 1.0 10^3/uL (0.8-4.8) 06/26/22 15:52 Parke # (Auto) 0.5 10^3/uL (0.2-0.9) 06/26/22 15:52 Eos # (Auto) 0.1 10^3/uL (0.0-0.8) 06/26/22 15:52 Baso # (Auto) 0.0 10^3/uL (0.0-0.1) 06/26/22 15:52 Nucleated RBC % (auto) 0 % 06/26/22 15:52 Nucleated RBCs # 0.0 /100WBC 06/26/22 15:52 Sodium 131 mmol/L (136-145) L 06/26/22 15:52 Potassium 5.0 mmol/L (3.5-5.1) 06/26/22 15:52 Chloride 96 mmol/L (98-107) L 06/26/22 15:52 Carbon Dioxide 26 mmol/L (22-29) 06/26/22 15:52 Anion Gap 14.0 (5-19) 06/26/22 15:52 BUN 26 mg/dL (8-23) H 06/26/22 15:52 Creatinine 0.9 mg/dL (0.7-1.2) 06/26/22 15:52 GFR Calculation 83.9 mL/min (90-130) L 06/26/22 15:52 Glucose 146 mg/dL (65-115) H 06/26/22 15:52 Calculated Osmolality 279 mOsm/kg (285-295) L 06/26/22 15:52 Calcium 7.4 mg/dL (8.5-10.5) L 06/26/22 15:52 Magnesium 2.5 mg/dL (1.7-2.3) H 06/26/22 15:52 Total Bilirubin 0.9 mg/dL (0.15-1.2) 06/26/22 15:52 AST 129 U/L (0-40) H 06/26/22 15:52 ALT 91 U/L (0-41) H 06/26/22 15:52 Alkaline Phosphatase 169 U/L (40-130) H 06/26/22 15:52 Troponin T Baseline 28 ng/L (0-15) H 06/26/22 15:52 Troponin T 120 Minute 27.10 ng/L (0-15) H 06/26/22 18:23 Delta Troponin T -0.90 ABS# (0-10) L 06/26/22 18:23 NT-Pro-B Natriuret Pep 8257 pg/mL (0-125) H 06/26/22 15:52 Total Protein 5.1 g/dL (6.6-8.7) L 06/26/22 15:52 Albumin 2.6 g/dL (3.5-5.2) L 06/26/22 15:52 Globulin 2.5 g/dL (1.3-4.6) 06/26/22 15:52 Acetaminophen < 5.0 ug/mL (10-30) L 06/26/22 15:52 Coronavirus 229E (PCR) Not detected (NOT DETECT) 06/26/22 15:52 Hepatitis A IgM Ab Non-reactive (Nonreactive) 06/26/22 15:52 Hep Bs Antigen Non-reactive (Nonreactive) 06/26/22 15:52 Hep B Core IgM Ab Non-reactive (Nonreactive) 06/26/22 15:52 Hepatitis C Antibody Reactive (Nonreactive) H 06/26/22 15:52 SARS-CoV-2 (PCR) Not detected (NOT DETECT) 06/26/22 15:52 Discharge Plan Discharge Patient Disposition: Placed in Observation Admit Provider: Jameson Lima Clinical Impression: Acute on chronic congestive heart failure, Transaminitis, Breath shortness Discharge Diet: Cardiac Discharge Activity: Resume usual activity Coding Level of Care Code ED Command Center Officer for Kahlil Ny
--- NOTE | 2022-06-26 15:36 | XRR_ITS ---
PROCEDURE INFORMATION: Exam: XR Chest Exam date and time: 06/26/2022 4:21 PM Age: 66 years old Clinical indication: Shortness of breath; Additional info: SOB TECHNIQUE: Imaging protocol: Radiologic exam of the chest. Views: 1 view. COMPARISON: CT chest [facility] [id number] 06/19/2022 7:23 PM FINDINGS: Lungs: Comparison with June 19, 2022 exam, bilateral infiltrative change is seen around the perihilar mid lung region, as well as both lower lungs, with areas of partial consolidation. This appears more consolidated in the right lung base than prior exam. There is again mild irregular appearance around the left perihilar region questioning masslike appearance. Emphysematous change. Pleural spaces: Mild basilar effusions. Heart/Mediastinum: Upper limits of normal cardiac size. Bones/joints: No acute findings. XR/XR chest 1V portable [id number] IMPRESSION: Continued findings of bilateral infiltrative change around the perihilar mid lung region and lower lungs with areas of partial consolidation and with associated mild basilar effusion. Slightly more consolidated appearance in the right lung base than prior exam, otherwise. Continued follow-up suggested.
--- NOTE | 2022-06-26 15:45 | ECG_ITS ---
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 Measurements Intervals Indian Rate: 49 P: 0 CA: 0 QRS: 67 QRSD: 148 T: -6 QT: 508 QTc: 463 Interpretive Statements SINUS RHYTHM RIGHT BUNDLE BRANCH BLOCK [120+ ms QRS DURATION, UPRIGHT V1, 40+ ms S IN I/aVL/V4/V5/V6] MODERATE T-WAVE ABNORMALITY, CONSIDER LATERAL ISCHEMIA [-0.1+ mV T-WAVE IN I/aVL/V5/V6] Compared to ECG 06/19/2022 21:28:25 Sinus bradycardia no longer present Right-axis deviation no longer present Myocardial infarct finding no longer present T-wave abnormality still present Possible ischemia still present Electronically Signed On 06-28-2022 7:45:26 EDI COORDINATOR by Devante Colindres M.D. [id number]
[2022-06-26] MEDS: albuterol 2.5 mg/3 mL Neb INHALATION (16:00)
--- NOTE | 2022-06-26 16:09 | PC.NURSE ---
PT IS ON CONTINUOUS SPO2, NIBP, AND CM.
[2022-06-26 16:12] LABS: Basophils % 0.1 %; Eosinophils # 0.1 10^3/uL (0.0-0.8); Eosinophils % 0.5 %; Hematocrit 38.9 % (42.0-52.0); Lymphocytes % 9.7 %; Mean Corpuscular HGB Conc 30.8 g/dL (30.0-36.0); Mean Corpuscular Hemoglobin 26.8 pg (28.0-34.0); Mean Corpuscular Volume 86.8 fl (80-94); Mean Platelet Volume 10.7 fL (7.4-10.4); Monocytes # 0.5 10^3/uL (0.2-0.9); Monocytes % 5.3 %; Neutrophils # 8.48 10^3/uL (1.8-7.7); Neutrophils % 83.7 %; Nucleated Red Blood Cells % 0 %; Platelet Count 253 10^3/cmm (130-400); Red Blood Count 4.48 10^6/uL (4.1-5.3); Red Cell Distribution Width 17.5 % (12.1-15.1); White Blood Count 10.1 10^3/uL (4.0-10.0)
[2022-06-26 16:50] LABS: Troponin(5th) Baseline 28 ng/L (0-15)
[2022-06-26 16:59] LABS: Alanine Aminotransferase 91 U/L (0-41); Albumin Level 2.6 g/dL (3.5-5.2); Alkaline Phosphatase 169 U/L (40-130); Aspartate Amino Transferase 129 U/L (0-40); Blood Urea Nitrogen 26 mg/dL (8-23); Calcium 7.4 mg/dL (8.5-10.5); Carbon Dioxide 26 mmol/L (22-29); Chloride 96 mmol/L (98-107); Creatinine Clr Calc Pharmacy 82.4129; Globulin 2.5 g/dL (1.3-4.6); Glomerular Filtration Rate 83.9 mL/min (90-130); Glucose 146 mg/dL (65-115); Magnesium 2.5 mg/dL (1.7-2.3); NT Pro B Type Natriuretic Pept 8257 pg/mL (0-125); Osmolality Calculated 279 mOsm/kg (285-295); Sodium 131 mmol/L (136-145); Total Bilirubin 0.9 mg/dL (0.15-1.2); Total Protein 5.1 g/dL (6.6-8.7)
--- NOTE | 2022-06-26 17:52 | ECG_ITS ---
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 Measurements Intervals Adell Rate: 52 P: 53 SC: 157 QRS: 58 QRSD: 150 T: 11 QT: 515 QTc: 481 Interpretive Statements SINUS BRADYCARDIA RIGHT BUNDLE BRANCH BLOCK [120+ ms QRS DURATION, UPRIGHT V1, 40+ ms S IN I/aVL/V4/V5/V6] MODERATE T-WAVE ABNORMALITY, CONSIDER ANTEROLATERAL ISCHEMIA [-0.1+ mV T-WAVE IN V3-V6] Compared to ECG 06/26/2022 15:45:20 Sinus rhythm no longer present T-wave abnormality still present Possible ischemia still present Electronically Signed On 06-28-2022 7:50:19 MOONER by Devante Colindres M.D. [id number]
[2022-06-26 17:57] LABS: Adenovirus Not Detected (NOT DETECT); Chlamydia Pneumoniae Not Detected (NOT DETECT); Coronavirus 229E,HKU1,NL63,OC4 Not Detected (NOT DETECT); Human Metapneumovirus Not Detected (NOT DETECT); Human Rhinovirus/Enterovirus Not Detected (NOT DETECT); Influenza A Not Detected (NOT DETECT); Influenza A H1 Not Detected (NOT DETECT); Influenza A H1-2009 Not Detected (NOT DETECT); Influenza A H3 Not Detected (NOT DETECT); Influenza B Not Detected (NOT DETECT); Mycoplasma Pneumoniae Not Detected (NOT DETECT); Parainfluenza Virus Type 1 Not Detected (NOT DETECT); Parainfluenza Virus Type 2 Not Detected (NOT DETECT); Parainfluenza Virus Type 3 Not Detected (NOT DETECT); Parainfluenza Virus Type 4 Not Detected (NOT DETECT); Respiratory Syncytial Virus A Not Detected (NOT DETECT); Respiratory Syncytial Virus B Not Detected (NOT DETECT); SARS-COV-2 Not Detected (NOT DETECT)
[2022-06-26 18:15] LABS: Acetaminophen < 5.0 ug/mL (10-30)
--- NOTE | 2022-06-26 19:15 | PC.NURSE ---
REPORT GIVEN TO KESHAWN Lawson RN.
[2022-06-26] MEDS: FUROsemide 10 mg/mL SDV 4mL 40 MG IVP (19:42)
--- NOTE | 2022-06-26 21:07 | PM.HP ---
Providers/Chief Complaint Primary Care Provider: Danielle Hurt APN Chief Complaint: SOB History of Present Illness Ralph Matta is a 66 year old male with a past medical history of atrial fibrillation on Eliquis, noninsulin-dependent type 2 diabetes mellitus, COPD, on 5 L, history of recurrent bilateral lower lobe pneumonia, hypertension, hyperlipidemia, hypertriglyceridemia, who presents [facility] due to increased shortness of breath, weakness, edema, abdominal distention. Patient tells me that since May he has been told that he has recurrent bilateral lower lobe pneumonia that has not improved, this is his second round of antibiotics, he tells me that he had a discussion with Dr. To and he might need a bronchoscopy as he has a history of smoking in the past. 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 Now he can barely walk due to shortness of breath and edema fatigue and tiredness. Denies any significant weight loss, no night sweats,. He continues to feel short of breath at rest with exertion that has progressively worsened since his hospitalization. No calf pain. Does have bilateral leg pain. No hemoptysis. He is taking his Eliquis as prescribed. He has been less mobile due to shortness of breath. History of hepatitis C status posttreatment Review of Systems Const: Denies: fever(s) or fatigue Eyes: Denies: change in vision ENMT: Denies: nasal congestion Card: Denies: chest pain or palpitations Resp: Denies: non-productive cough GI: Denies: abdominal pain, diarrhea, hematochezia or melena : Denies: flank pain, difficulty urinating, dysuria or urinary frequency Musc: Denies: neck pain Skin/Breast: Denies: rash Neuro: Denies: headache(s), dizziness or vertigo Psych: Denies: anxiety Endo: Denies: polyuria or polydipsia Medications/Allergies Home Medications Medication Instructions Recorded Confirmed Last Taken Type apixaban 5 mg tablet (Eliquis) 5 mg PO BID 07/05/19 06/22/22 06/19/22 History tamsulosin 0.4 mg capsule 0.4 mg PO BEDTIME 07/05/19 06/22/22 06/18/22 History acetaminophen 325 mg tablet 650 mg PO Q6H PRN Mild/Mod Pain Or 07/09/19 06/22/22 Unknown Rx Temp >/= 101 #30 tabs empagliflozin 25 mg tablet 25 mg PO DAILY 06/24/21 06/22/22 10/07/21 08:00 History escitalopram oxalate 20 mg tablet 10 mg PO .every other day 06/24/21 06/22/22 10/07/21 08:00 History fluticasone fur. 100 mcg-umeclid 1 inh inhalation DAILY 06/24/21 06/22/22 Unknown History 62.5 mcg-vilant 25 mcg inhalat.powder formoterol fumarate 20 mcg/2 mL 2 ml inhalation BID #120 mL 06/24/21 06/22/22 Unknown Rx solution for nebulization (Perforomist) revefenacin 175 mcg/3 mL solution 175 mcg (3 mL) inhalation DAILY 06/24/21 06/22/22 06/18/22 Rx for nebulization (Yupelri) #90 mL potassium chloride 8 mEq 8 meq PO DAILY #90 tabs 06/25/21 06/22/22 06/19/22 Rx tablet,extended release (Klor-Con) atorvastatin 20 mg tablet 20 mg PO DAILY #90 tabs 07/20/21 06/22/22 10/07/21 08:00 Rx budesonide 0.5 mg/2 mL suspension 0.5 mg (2 mL) inhalation BID #120 08/10/21 06/22/22 Unknown Rx for nebulization (Pulmicort) mL isosorbide mononitrate 30 mg 30 mg PO DAILY #90 tabs 08/26/21 06/22/22 10/07/21 08:00 Rx tablet,extended release 24 hr glipizide 10 mg tablet, extended 10 mg PO BID 09/20/21 06/22/22 06/19/22 History release 24 hr amiodarone 200 mg tablet 400 mg PO DAILY #180 tabs 10/18/21 06/22/22 06/19/22 Rx magnesium L-lactate 84 mg 84 mg PO BID #180 tabs 12/27/21 06/22/22 06/19/22 Rx tablet,extended release (Magtab) ibuprofen 800 mg tablet 800 mg PO Q8H PRN pain #30 tabs 12/30/21 06/22/22 Unknown Rx furosemide 20 mg tablet (Lasix) 40 mg PO DAILY 04/05/22 06/22/22 Unknown History carvedilol 25 mg tablet 12.5 mg PO BID #60 tabs 04/11/22 06/22/22 Unknown Rx alprazolam 0.5 mg tablet 0.5 - 1 mg PO BID PRN Anxiety 06/19/22 06/22/22 Unknown History amoxicillin 875 mg-potassium 1 tab PO BID 7 days #14 tabs 06/21/22 06/22/22 Unknown Rx clavulanate 125 mg tablet prednisone 10 mg tablet See Rx Instructions .Route 06/21/22 06/22/22 Unknown Rx .COMPLEX #38 tabs Allergies Allergy/AdvReac Type Severity Reaction Status Date / Time azithromycin [From Zithromax] Allergy unknown Verified 04/29/22 11:21 metformin Allergy Unknown Verified 04/29/22 11:21 PFSH Acute PFSH: Medical History Atrial fibrillation COPD (chronic obstructive pulmonary disease) Diabetes mellitus Erectile dysfunction Hyperlipidemia Hypertension Hypertriglyceridemia Ischemic cardiomyopathy Ventricular tachycardia Surgical History History of tonsillectomy and adenoidectomy Hx of cataract extraction Hx of umbilical hernia repair S/P colonoscopic polypectomy Family History Father CAD (coronary artery disease), Onset Age: 50 Cancer Lung disease Mother Hyperlipidemia Hypertension Denies family history of Diabetes Clotting disorder Dementia Psychiatric illness Chronic kidney disease (CKD) Suicide Anesthesia complication Bleeding disorder Family history of premature coronary artery disease Social History Smoking and tobacco status: former smoker Quit status (tobacco): has quit using tobacco Year quit tobacco: 2011 Former quit date comment: 2ppd x 42 years Alcohol intake: never Vitals/I&O/Wt Last Vital Signs Temp 98.0 F 06/26/22 15:30 Pulse 53 L 06/26/22 20:13 Resp 20 H 06/26/22 20:13 BP 117/67 06/26/22 20:13 Pulse Ox 92 06/26/22 20:13 O2 Del Method 06/26/22 20:13 O2 Flow Rate 5 06/26/22 20:13 Weight last 48 hrs Weight 79.379 kg Physical Exam Const: COMMON NORMALS: no acute distress and patient oriented x3 HENMT: COMMON NORMALS: normocephalic HEAD & SCALP: normocephalic Eye: COMMON NORMALS: Equal, round and reactive pupils present and EOMs intact bilaterally Neck/C-Spine: COMMON NORMALS: no JVD Lymph: LYMPHATIC: no lymphadenopathy noted Resp: COMMON NORMALS: normal respiratory effort, No retractions and No use of accessory muscles AUSCULTATION: crackles and wheezes Cardio: COMMON NORMALS: no JVD, regular rate, regular rhythm, S1 normal heart sound present and S2 normal heart sound present RATE: regular rate RHYTHM: regular rhythm HEART SOUNDS: S1 normal heart sound present and S2 normal heart sound present GI: INSPECTION: Yes normal to inspection, Yes Abdominal wall edema and Yes abdominal distension AUSCULTATION: Yes normoactive bowel sounds PALPATION: Yes Soft to palpation PERCUSSION: Fluid wave present Extremity: COMMON NORMALS: capillary refill normal, no clubbing, cyanosis or edema, no calf tenderness and no pedal edema Neuro: COMMON NORMALS: patient oriented x3, CN's II-XII intact bilaterally, moves all extremities and no focal motor deficits Psych: COMMON NORMALS: mental status grossly normal Data 06/26/22 15:52 06/26/22 15:52 A&P Assessment and plan (1) Acute on chronic congestive heart failure: (2) COPD exacerbation: (3) Recurrent pneumonia: (4) NSTEMI (non-ST elevated myocardial infarction): (5) Abdominal distention: (6) Atrial fibrillation: (7) Hypertriglyceridemia: (8) Hyperlipidemia: Qualifiers: Hyperlipidemia type: mixed hyperlipidemia Qualified Code(s): E78.2 - Mixed hyperlipidemia (9) Diabetes mellitus: (10) Hypertension: (11) Goals of care, counseling/discussion: (12) Physical deconditioning: (13) Hypoalbuminemia: (14) Transaminitis: (15) Hyponatremia: (16) Pulmonary hypertension: Plan Recurrent bilateral lower lobe pneumonia -Was told he had lateral lower lobe pneumonia during his hospitalization at [place], and when he was in [place] I believe at [facility] he tells me -During his last hospitalization and again he had bilateral lower lobe pneumonias CT without contrast during last hospitalization showed -Lungs: Severe centrilobular emphysema. Multiple calcified granulomas in both lungs. Irregular scattered nodular consolidations scattered throughout the right lung, the largest measuring 3.6 cm. Dense consolidation in the medial left upper lobe. Dependent atelectasis in both lower lobes. Pleural spaces: Small bilateral pleural effusions, right slightly greater than left. No pneumothorax. -We will continue Rocephin and doxycycline -Sputum cultures, blood cultures, urine bacterial antigens -Given persistent shortness of breath, will order CT angiogram of the chest -Will discuss with pulmonary in a.m. about performing a bronchoscopy COPD exacerbation -Active wheezing on examination -DuoNeb, budesonide, home inhaler -Received 125 of Solu-Medrol in the emergency room -Continue Solu-Medrol 40 every 8 hours monitor blood sugars closely Acute diastolic CHF exacerbation Recent cardiac echo LV systolic function is normal with EF of 55 to 60% ?Mild mitral regurgitation ?Trace tricuspid regurgitation. ?Moderate pulmonary hypertension ?Compared to prior echocardiogram from 2019, no significant ?changes seen. -Fluid restrictions 1000 cc -BiPAP therapy -Has received Lasix the emergency room -Continue Bumex 1 mg every 12 hours, consider albumin with Bumex based on clinical progress given hypoalbuminemia -Potassium replacement therapy -Monitor creatinine, monitor potassium monitor magnesium, monitor BMP Moderate pulmonary hypertension -Monitor NStemi Cardiac catheter 2019 . Left main was found to have no significant disease.? Left anterior descending artery had mild disease in the midsegment.? The first diagonal branches found to have around 50 to 60% diffuse narrowing in the proximal segment.? Circumflex artery was found to have mild disease proximally.? The second obtuse marginal artery was found to have around 50 to 60% irregular diffuse narrowing in the proximal segment.? The right coronary artery also was found to have mild disease.? LV ejection fraction was 45%. LVEDP of 24 mmHg. Based on the angiogram findings and also myocardial perfusion imaging findings, it was thought to be appropriate to consider IFR of the circumflex and diagonal artery lesions. These were performed by Dr. Espinosa. The IFR was above 0.95 at both these sites. Based on this, it was decided to treat the patient medically. -Serial EKGs, serial troponins, telemetry monitoring -No complaints of chest pain -Continue Eliquis, carvedilol A. fib -Currently not exacerbation continue amiodarone, continue Coreg, continue Eliquis Significant abdominal distention -Does have a umbilical hernia, reducible, abdomen distended, fluid wave present -Has transaminitis, hypoalbuminemia -All evidence of potential liver cirrhosis, etiology unclear possibly secondary to congestive hepatopathy -CT scan abdomen pelvis -Has a history of hep c, which was treated, viral load, AMA, SEVERIANO, ferritin Type 2 diabetes mellitus, low-dose sliding scale Hypoalbuminemia as above Transaminitis as above Hyponatremia, cholecystectomy liver cirrhosis Deconditioning, PT OT Goals of care discussion patient is a full code Attestations Medical Necessity Statement*: Patient requires hospitalization, inpatient, greater than 2 midnights, for COPD exacerbation, CHF exacerbation, recurrent pneumonia, deconditioning, abdominal distention concerning for congestive hepatopathy possible liver cirrhosis, hypoalbuminemia, transaminitis, Coding Level of Care Code Acute Code for Chg Fwd Diagnoses Acute on chronic congestive heart failure I50.9 COPD exacerbation J44.1 Recurrent pneumonia J18.9 NSTEMI (non-ST elevated myocardial infarction) I21.4 Abdominal distention R14.0 Atrial fibrillation I48.91 Hypertriglyceridemia E78.1 Hyperlipidemia E78.2 Hyperlipidemia type: mixed hyperlipidemia Diabetes mellitus E11.9 Hypertension I10 Goals of care, counseling/discussion Z71.89 Physical deconditioning R53.81 Hypoalbuminemia E88.09 Transaminitis R74.01 Hyponatremia E87.1 Pulmonary hypertension I27.20
--- NOTE | 2022-06-26 21:09 | CTR_ITS ---
PROCEDURE INFORMATION: Exam: CTA Chest With Contrast Exam date and time: 06/26/2022 9:35 PM Age: 66 years old Clinical indication: Bloating; Dyspnea; Additional info: SOB TECHNIQUE: Imaging protocol: Computed tomographic angiography of the chest with contrast. 3D rendering (Not supervised by radiologist): MIP and/or 3D reconstructed images were created by the technologist. Radiation optimization: All CT scans at this facility use at least one of these dose optimization techniques: automated exposure control; mA and/or kV adjustment per patient size (includes targeted exams where dose is matched to clinical indication); or iterative reconstruction. Contrast material: OMNI 350; Contrast volume: 100 ml; Contrast route: INTRAVENOUS (IV); COMPARISON: CT angio chest PE protcl [id number] 05/14/2021 11:30 AM RADIATION DOSE METRICS: Total DLP (mGy-cm): 361.9 FINDINGS: Pulmonary arteries: There is mild prominence of the pulmonary vasculature and subtle ground-glass opacities present within the hemithoraces, findings that could represent a superimposed mild pulmonary edema as well. Aorta: Unremarkable. No aortic aneurysm. No aortic dissection. Lungs: A 5.6 mm calcified granuloma seen in the left lower lobe laterally. A 2nd calcified granuloma is seen in the left upper lobe laterally measuring 7.1 mm. There is a background of severe centrilobular emphysema, bronchiectasis and pulmonary fibrosis. There are patchy and strandy opacities and some consolidation seen superimposed over the bilateral pleural effusions and present within the right middle lobe and lingula likely representing atelectasis although patchy bilateral pneumonia cannot be excluded. Pleural spaces: There are bilateral pleural effusions, right slightly larger than left. Heart: Unremarkable. No cardiomegaly. No pericardial effusion. Coronary arteries: Mild coronary artery calcifications are seen. Lymph nodes: The there are mildly prominent mediastinal and hilar lymph nodes seen, the largest seen in level 10R measuring 12.8 mm transverse dimension. Bones/joints: Unremarkable. No acute fracture. Soft tissues: Unremarkable. COMMENTS: In the absence of a history or active diagnosis of lung cancer, it is recommended that this patient with emphysema be evaluated for enrollment in a low dose CT lung cancer screening program. PROCEDURE INFORMATION: Exam: CT Abdomen And Pelvis With Contrast Exam date and time: 06/26/2022 9:35 PM Age: 66 years old Clinical indication: Bloating; Dyspnea; Additional info: SOB TECHNIQUE: Imaging protocol: Computed tomography of the abdomen and pelvis with contrast. Radiation optimization: All CT scans at this facility use at least one of these dose optimization techniques: automated exposure control; mA and/or kV adjustment per patient size (includes targeted exams where dose is matched to clinical indication); or iterative reconstruction. Contrast material: OMNI 350; Contrast volume: 100 ml; Contrast route: INTRAVENOUS (IV); COMPARISON: CT chest wo con [id number] 06/19/2022 7:23 PM RADIATION DOSE METRICS: Total DLP (mGy-cm): 844.8 FINDINGS: Liver: Normal. No mass. Gallbladder and bile ducts: Subtle increased densities seen within the gallbladder lumen possibly representing gallbladder sludge. Pancreas: Normal. No ductal dilation. Spleen: Normal. No splenomegaly. Adrenal glands: Normal. No mass. Kidneys and ureters: There are 2 contiguous hypoattenuation cysts seen in the anterior aspect of the left kidney, the largest measuring 2.8 cm. Punctate nonobstructing calculi are seen within the lower pole of the left kidney. The largest measures 3.5 mm. Calcified nonobstructing renal calculi are seen within the right kidney, the largest is seen in the lower pole measuring 4.2 mm. Stomach and bowel: Diverticula are present scattered on the colon. These appear most numerous within the sigmoid colon. There are no inflammatory changes present to suggest diverticulitis. Appendix: No evidence of appendicitis. Intraperitoneal space: There is a small volume of ascites present within the abdomen and pelvis. Vasculature: Calcifications are seen within the thoracic and abdominal aorta, iliac arteries and femoral arteries bilaterally. Lymph nodes: Unremarkable. No enlarged lymph nodes. Urinary bladder: Unremarkable as visualized. Reproductive: Unremarkable as visualized. Bones/joints: Unremarkable. No acute fracture. Soft tissues: There is a left inguinal hernia containing fat and some ascites fluid. CT/CT angio chest w abd pel w con IMPRESSION: 1. There is no evidence for pulmonary emboli. 2. There are small bilateral pleural effusions. 3. Strandy and patchy opacities and some consolidation is seen superimposed over the pleural effusions and present within the right middle lobe and lingula possibly representing atelectasis although pneumonia cannot be excluded. 4. Mildly prominent pulmonary vasculature and some ground-glass opacities are seen in the lower hemithoraces, findings that could represent mild pulmonary edema. 5. There is a background of severe centrilobular emphysema, bronchiectasis and pulmonary fibrosis. IMPRESSION: 1. There is a small volume of ascites present. 2. Subtle increased density within the gallbladder lumen may represent gallbladder sludge. There is no findings to suggest cholecystitis however. 3. Two benign appearing cysts are seen in the left kidney, the largest measuring 2.8 cm. 4. Bilateral nonobstructing renal calculi 5. Diverticulosis, most numerous within the sigmoid colon. There are no findings to suggest diverticulitis. 6. Left inguinal hernia containing fat and fluid. 7. There is no evidence for occlusion, stenosis, aneurysmal dilatation or extravasation the visualized arteries of the abdomen and pelvis. COMMENTS: Consistent with the [employer]'s Incidental Findings Committee white paper (J Am Janel Radiol 2018): Any incidental renal lesion less than 1 cm or classified as too small to characterize, or any incidental cystic renal lesion characterized as simple-appearing, is likely benign. No follow-up imaging is recommended for these lesions per consensus recommendations based on imaging criteria.
[2022-06-26] MEDS: iohexol 350 mg/mL 500 mL Btl (per mL) IV (21:26)
[2022-06-27] VITALS (14 sets, daily range): BP systolic 104–140; BP diastolic 54–84; PULSE 50–69; RESP 15–18; TEMP 36.4–36.8; O2SAT 90–94
[2022-06-27 00:03] LABS: Glucose Point of Care 353 mg/dL (70-110)
[2022-06-27] MEDS: pantoprazole 40 mg SDV IVP ×2 (00:09→22:15)
[2022-06-27] MEDS: tamsulosin 0.4 mg Capsule PO ×2 (00:09→20:32)
[2022-06-27] MEDS: cefTRIAXone 1,000 MG in sodium chloride 0.9% (plus) 50 ML 100 MG IV ×2 (00:09→22:15)
[2022-06-27 00:20] LABS: Hepatitis A Antibody IgM Non-Reactive (Nonreactive); Hepatitis B Core IgM Non-Reactive (Nonreactive); Hepatitis B Surface Antigen Non-Reactive (Nonreactive); Hepatitis C Virus Antibody Reactive (Nonreactive)
[2022-06-27 00:32] LABS: Estmated Average Glucose 200
[2022-06-27 00:36] LABS: INR 2.05 (0.8-1.2)
[2022-06-27 00:41] LABS: Hemoglobin A1C 8.6 % (4.0-6.0)
[2022-06-27] MEDS: doxycycline 100 MG in sodium chloride 0.9% (plus) 100 ML IV ×3 (00:41→23:03)
[2022-06-27 00:44] LABS: Lactic Sepsis W/Reflex 3.6 mmol/L (0.5-2.2)
[2022-06-27 00:56] LABS: Procalcitonin 0.34 ng/mL (0-0.5); Thyroid Stimulating Hormone 1.76 uIU/mL (0.27-4.20)
[2022-06-27 01:01] LABS: Basophils % 0.1 %; Eosinophils % 0.1 %; Hematocrit 36.5 % (42.0-52.0); Hemoglobin 11.5 g/dL (11.7-16.6); Lymphocytes # 0.5 10^3/uL (0.8-4.8); Lymphocytes % 6.2 %; Mean Corpuscular HGB Conc 31.5 g/dL (30.0-36.0); Mean Corpuscular Hemoglobin 26.9 pg (28.0-34.0); Mean Corpuscular Volume 85.5 fl (80-94); Mean Platelet Volume 11.1 fL (7.4-10.4); Monocytes # 0.1 10^3/uL (0.2-0.9); Monocytes % 1.4 %; Neutrophils # 7.18 10^3/uL (1.8-7.7); Neutrophils % 91.2 %; Nucleated Red Blood Cells % 0 %; Platelet Count 221 10^3/cmm (130-400); Red Blood Count 4.27 10^6/uL (4.1-5.3); Red Cell Distribution Width 17.4 % (12.1-15.1); White Blood Count 7.9 10^3/uL (4.0-10.0)
[2022-06-27 01:06] LABS: C Reactive Protein 124.6 mg/L (0.0-4.9); Lipase 23 U/L (13-60)
[2022-06-27 01:22] LABS: Anion Gap 17.5 (5-19); Blood Urea Nitrogen 31 mg/dL (8-23); Calcium 7.6 mg/dL (8.5-10.5); Carbon Dioxide 25 mmol/L (22-29); Chloride 94 mmol/L (98-107); Glomerular Filtration Rate 66.6 mL/min (90-130); Glucose 366 mg/dL (65-115); Magnesium 2.6 mg/dL (1.7-2.3); Osmolality Calculated 293 mOsm/kg (285-295); Potassium 5.5 mmol/L (3.5-5.1); Sodium 131 mmol/L (136-145)
[2022-06-27 01:59] LABS: NT Pro B Type Natriuretic Pept 8259 pg/mL (0-125)
[2022-06-27 02:05] LABS: Reflex Lactate Order REFLEX LACTIC ORDERD
[2022-06-27] MEDS: insulin glargine 100 units/1 mL 5 UNIT SUBCUT (02:18)
--- NOTE | 2022-06-27 03:51 | PC.NURSE ---
Coronavirus test completed in ER with neg result.
[2022-06-27] MEDS: bumetanide 0.25 mg/mL SDV 4 mL 1 MG IVP ×2 (05:35→17:52)
[2022-06-27 06:29] LABS: Influenza A by IFA negative (Negative); Influenza B by IFA negative (Negative)
[2022-06-27 06:43] LABS: Ferritin 433 ng/mL (30-400); Gamma Glutamyl Transferase 430 U/L (8-61)
[2022-06-27 06:51] LABS: Glucose Point of Care 288 mg/dL (70-110)
[2022-06-27 06:55] LABS: Lactic Acid level (Lactate) 3.7 mmol/L (0.5-2.2)
--- NOTE | 2022-06-27 06:57 | US_ITS ---
WS: [id number] Abdominal ultrasound, limited. History: Evaluate for ascites. Comparison: None. All 4 quadrants are imaged by ultrasound to evaluate for ascites. Insufficient ascites for paracentes is. Only a very few small pockets of fluid are identified. US/US abdomen lmt fluid [id number] IMPRESSION: Minimal ascites. Insufficient for paracentesis.
[2022-06-27] MEDS: ipratropium-albuterol 3 mL Neb INHALATION ×2 (07:45→12:32)
[2022-06-27] MEDS: amiodarone 200 mg Tablet 400 MG PO (10:10)
[2022-06-27] MEDS: apixaban 5 mg Tablet PO ×2 (10:11→17:54)
[2022-06-27] MEDS: atorvastatin 40 mg Tablet 20 MG PO (10:13)
[2022-06-27] MEDS: insulin lispro 100 unit/1 mL SUBCUT ×3 (10:27→17:52)
[2022-06-27 11:32] LABS: Glucose Point of Care 383 mg/dL (70-110)
--- NOTE | 2022-06-27 11:50 | PC.CHAP ---
Pastoral Care Encounter/Spiritual Assessment Type of Contact [] Declined assembler billiard table visit [] Patient/Family/Request visit [] Outpatient visit [] Follow-up visit [] Physician referral [] Code/Alert [x] Routine visit [] Staff referral [] Actively dying [] Patient sleeping [] Family support [] [] Out of room [] Palliative care [] [x] Receiving care in room [] Pre-surgical visit [] Trauma [] Long length of stay [] ICU visit [] Other: Relational/Emotional Strength [] Patient feels connected with others/family/visitors/staff [] Distress [] Loneliness/isolation [] Abandonment Spirituality of Patient [] Person of [employer] [] Attends Confucianist of their [employer] [] Believes in Prayer [] Reads Bible or Shinto materials [] There are Spiritual issues to be addressed Aircraft Electrical Systems Specialist Interventions [] Prayer [] Active listening [] Non-anxious presence [] Spiritual/emotional support [] Crisis/trauma care [] Spiritual counseling [] Bereavement support [] Provided bereavement packet [] Provided Bible/devotional materials [] Provided toy/stuffed animal, coloring book to patient or family member [] Provided Communion [] Anointing/[place]anderson [] Salvation [] Completed spiritual assessment [] Other: Impact on Illness or Injury [] Angry [] Fearful [] Anxious [] Often cries [] Exhaustion [] Unable to work [] Unable to attend faith [] Unable to walk/stand [] Unable to read [] Unable to drive [] Unable to eat/drink [] Unable to sleep [] Unable to be with family [] Patient intubated [] Other: Summary Time spent with patient
[2022-06-27 16:57] LABS: Glucose Point of Care 409 mg/dL (70-110)
[2022-06-27 17:17] LABS: Glucose Point of Care 360 mg/dL (70-110)
--- NOTE | 2022-06-27 17:27 | P.PN_ITS ---
Subjective Subjective: Patient was seen this morning, he is resting much more comfortably, no nausea, no vomiting, shortness of breath a bit more improved, no chest pain Vitals/I&O/Wt Last Vital Signs Temp 97.6 F 06/27/22 15:40 Pulse 61 06/27/22 15:40 Resp 16 06/27/22 15:40 BP 131/65 06/27/22 15:40 Pulse Ox 90 06/27/22 15:40 O2 Del Method 06/27/22 15:40 O2 Flow Rate 5 06/27/22 15:18 06/27/22 06/27/22 06/27/22 06:59 14:59 22:59 Intake Total 150 / 150 580 / 580 200 / 780 Balance 150 / 150 580 / 580 200 / 780 Weight last 48 hrs Weight 79.379 kg Physical Exam Const: COMMON NORMALS: no acute distress and patient oriented x3 Resp: COMMON NORMALS: normal respiratory effort, No retractions and No use of accessory muscles AUSCULTATION: crackles Cardio: COMMON NORMALS: regular rate, regular rhythm, S1 normal heart sound present and S2 normal heart sound present RATE: regular rate RHYTHM: r egular rhythm HEART SOUNDS: S1 normal heart sound present and S2 normal heart sound present GI: OTHER: Abdomen soft, distended, fluid wave present, umbilical hernia present reducible, Extremity: COMMON NORMALS: no pedal edema Neuro: COMMON NORMALS: patient oriented x3 Psych: COMMON NORMALS: mental status grossly normal Data 06/27/22 00:07 06/27/22 00:07 Micro: Microbiology 06/27/22 00:09 Blood Culture - Preliminary Blood SPECIMEN COLLECTED 06/27/22 00:07 Blood Culture - Preliminary Blood SPECIMEN COLLECTED A&P Assessment and plan (1) Acute on chronic congestive heart failure: (2) COPD exacerbation: (3) Recurrent pneumonia: (4) NSTEMI (non-ST elevated myocardial infarction): (5) Abdominal distention: (6) Atrial fibrillation: (7) Hypertriglyceridemia: (8) Hyperlipidemia: Qualifiers: Hyperlipidemia type: mixed hyperlipidemia Qualified Code(s): E78.2 - Mixed hyperlipidemia (9) Diabetes mellitus: (10) Hypertension: (11) Goals of care, counseling/discussion: (12) Physical deconditioning: (13) Hypoalbuminemia: (14) Transaminitis: (15) Hyponatremia: (16) Pulmonary hypertension: Plan Recurrent bilateral lower lobe pneumonia -Was told he had lateral lower lobe pneumonia during his hospitalization at [place], and when he was in [place] I believe at [facility] he tells me -During his last hospitalization and again he had bilateral lower lobe pneum onias CT without contrast during last hospitalization showed -Lungs: Severe centrilobular emphysema. Multiple calcified granulomas in both lungs. Irregular scattered nodular consolidations scattered throughout the right lung, the largest measuring 3.6 cm. Dense consolidation in the medial left upper lobe. Dependent atelectasis in both lower lobes. Pleural spaces: Small bilateral pleural effusions, right slightly greater than left. No pneumothorax. -We will continue Rocephin and doxycycline -Sputum cultures, blood cultures, urine bacterial antigens -Given persistent shortness of breath, will order CT angiogram of the chest ordered 1. There is no evidence for pulmonary emboli. 2. There are small bilateral pleural effusions. 3. Strandy and patchy opacities and some consolidation is seen superimposed over the pleural effusions and present within the right middle lobe and lingula possibly representing atelectasis although pneumonia cannot be excluded. 4. Mildly prominent pulmonary vasculature and some ground-glass opacities are seen in the lower hemithoraces, findings that could represent mild pulmonary edema. 5. There is a background of severe centrilobular emphysema, bronchiectasis and pulmonary fibrosis. -Will discuss with pulmonary about performing a bronchoscopy Hyperglycemia on type 2 diabetes mellitus likely secondary to Solu-Medrol therapy -Hemoglobin A1c in the 8.6 -As received 5 units of Lantus early in the morning -Switch to 10 units Lantus every 24 hours starting at 5 PM -increased to high-dose sliding scale -Monitor blood sugars closely COPD exacerbation -Active wheezing on examination -DuoNeb, budesonide, home inhaler -Received 125 of Solu-Medrol in the emergency room -Continue Solu-Medrol 40 every p.o. every 24 hours Acute diastolic CHF exacerbation Recent cardiac echo LV systolic function is normal with EF of 55 to 60% ?Mild mitral regurgitation ?Trace tricuspid regurgitation. ?Moderate pulmonary hypertension ?Compared to prior echocardiogram from 2019, no significant ?changes seen. -Fluid restrictions 1000 cc -BiPAP therapy -Has received Lasix the emergency room -Continue Bumex 1 mg every 12 hours, administer albumin with Bumex -Potassium replacement therapy -Monitor creatinine, monitor potassium monitor magnesium, monitor BMP Moderate pulmonary hypertension -Monitor NStemi Cardiac catheter 2019 . Left main was found to have no significant disease.? Left anterior descending artery had mild disease in the midsegment.? The first diagonal branches found to have around 50 to 60% diffuse narrowing in the proximal segment.? Circumflex artery was found to have mild disease proximally.? The second obtuse marginal artery was found to have around 50 to 60% irregular diffuse narrowing in the proximal segment.? The right coronary artery also was found to have mild disease.? LV ejection fraction was 45%. LVEDP of 24 mmHg. Based on the angiogram findings and also myocardial perfusion imaging findings, it was thought to be appropriate to consider IFR of the circumflex and diagonal artery lesions. These were performed by Dr. Espinosa. The IFR was above 0.95 at both these sites. Based on this, it was decided to treat the patient medically. -Serial EKGs, serial troponins, telemetry monitoring -No complaints of chest pain -Continue Eliquis, carvedilol A. fib -Currently not exacerbation continue amiodarone, continue Coreg, continue Eliquis Significant abdominal distention -Does have a umbilical hernia, reducible, abdomen distended, fluid wave present -Has transaminitis, hypoalbuminemia -All evidence of potential liver cirrhosis, etiology unclear possibly secondary to congestive hepatopathy -CT scan abdomen pelvis 1. There is a small volume of ascites present. 2. Subtle increased density within the gallbladder lumen may represent gallbladder sludge. There is no findings to suggest cholecystitis however. 3. Two benign appearing cysts are seen in the left kidney, the largest measuring 2.8 cm. 4. Bilateral nonobstructing renal calculi 5. Diverticulosis, most numerous within the sigmoid colon. There are no findings to suggest diverticulitis. 6. Left inguinal hernia containing fat and fluid. 7. There is no evidence for occlusion, stenosis, aneurysmal dilatation or extravasation the visualized arteries of the abdomen and pelvis. -Has a history of hep c, which was treated, viral load, AMA, SEVERIANO, ferritin Lactic acidosis, monitor Type 2 diabetes mellitus, low-dose sliding scale Hypoalbuminemia as above Transaminitis as above Hyponatremia, cholecystectomy liver cirrhosis Deconditioning, PT OT Goals of care discussion patient is a full code Attestations Medical Necessity Statement*: Patient requires hospitalization, inpatient, inpatient, greater than 2 midnights, for acute diastolic CHF exacerbation, CHF exacerbation, recurrent bilateral lobe pneumonia Coding Level of Care Code Acute Code for Chg Fwd Diagnoses Acute on chronic congestive heart failure I50.9 COPD exacerbation J44.1 Recurrent pneumonia J18.9 NSTEMI (non-ST elevated myocardial infarction) I21.4 Abdominal distention R14.0 Atrial fibrillation I48.91 Hypertriglyceridemia E78.1 Hyperlipidemia E78.2 Hyperlipidemia type: mixed hyperlipidemia Diabetes mellitus E11.9 Hypertension I10 Goals of care, counseling/discussion Z71.89 Physical deconditioning R53.81 Hypoalbuminemia E88.09 Transaminitis R74.01 Hyponatremia E87.1 Pulmonary hypertension I27.20
[2022-06-27] MEDS: insulin glargine 100 units/1 mL 10 UNIT SUBCUT (18:11)
[2022-06-27 21:07] LABS: Glucose Point of Care 360 mg/dL (70-110)
[2022-06-28] VITALS (14 sets, daily range): BP systolic 128–160; BP diastolic 66–80; PULSE 59–74; RESP 15–20; TEMP 36.4–36.9; O2SAT 90–95
[2022-06-28 05:27] LABS: Basophils % 0.2 %; Eosinophils % 0.1 %; Hematocrit 36.8 % (42.0-52.0); Hemoglobin 11.5 g/dL (11.7-16.6); Lymphocytes # 1.2 10^3/uL (0.8-4.8); Lymphocytes % 9.6 %; Mean Corpuscular HGB Conc 31.3 g/dL (30.0-36.0); Mean Corpuscular Hemoglobin 27.1 pg (28.0-34.0); Mean Corpuscular Volume 86.6 fl (80-94); Mean Platelet Volume 10.7 fL (7.4-10.4); Monocytes # 0.8 10^3/uL (0.2-0.9); Monocytes % 6.9 %; Neutrophils # 9.96 10^3/uL (1.8-7.7); Neutrophils % 82.3 %; Nucleated Red Blood Cells % 0 %; Platelet Count 266 10^3/cmm (130-400); Red Blood Count 4.25 10^6/uL (4.1-5.3); Red Cell Distribution Width 17.6 % (12.1-15.1); White Blood Count 12.1 10^3/uL (4.0-10.0)
[2022-06-28 05:38] LABS: INR 1.77 (0.8-1.2)
[2022-06-28] MEDS: bumetanide 0.25 mg/mL SDV 4 mL 1 MG IVP ×2 (05:48→16:56)
[2022-06-28 05:53] LABS: Lactate (Lactic Acid level) 2.5 mmol/L (0.5-2.2)
--- NOTE | 2022-06-28 05:53 | PC.NURSE ---
Patient has been noncompliant regarding fluid restriction this shift. Patient stated The doctors are just trying to punish me, my feet weren't swollen until after they put me on that restriction, I'm going to tell the doctor that I'm not doing that anymore because its not helping. This nurse educated patient on the purpose of the fluid restriction order and explained disease process to patient. Patient still refuses to follow fluid restriction.
[2022-06-28 06:03] LABS: Alanine Aminotransferase 77 U/L (0-41); Albumin Level 3.3 g/dL (3.5-5.2); Alkaline Phosphatase 186 U/L (40-130); Anion Gap 15.8 (5-19); Aspartate Amino Transferase 69 U/L (0-40); Blood Urea Nitrogen 39 mg/dL (8-23); Calcium 8.1 mg/dL (8.5-10.5); Carbon Dioxide 27 mmol/L (22-29); Chloride 99 mmol/L (98-107); Globulin 2.7 g/dL (1.3-4.6); Glomerular Filtration Rate 66.6 mL/min (90-130); Glucose 122 mg/dL (65-115); Magnesium 2.7 mg/dL (1.7-2.3); NT Pro B Type Natriuretic Pept 7751 pg/mL (0-125); Osmolality Calculated 295 mOsm/kg (285-295); Potassium 4.8 mmol/L (3.5-5.1); Sodium 137 mmol/L (136-145); Total Bilirubin 0.4 mg/dL (0.15-1.2)
[2022-06-28 06:50] LABS: Glucose Point of Care 131 mg/dL (70-110)
[2022-06-28] MEDS: ipratropium 0.5 mg/2.5 mL Neb INHALATION ×3 (08:13→20:59)
[2022-06-28] MEDS: albuterol 2.5 mg/3 mL Neb INHALATION ×3 (08:13→20:59)
[2022-06-28] MEDS: magnesium lactate 84 mg Tablet PO ×2 (08:59→17:38)
[2022-06-28] MEDS: metOLazone 5 MG Tablet PO (09:00)
[2022-06-28] MEDS: amiodarone 200 mg Tablet 400 MG PO (09:00)
[2022-06-28] MEDS: apixaban 5 mg Tablet PO ×2 (09:01→17:38)
[2022-06-28] MEDS: predniSONE 20 mg Tablet 40 MG PO (09:01)
[2022-06-28] MEDS: atorvastatin 40 mg Tablet 20 MG PO (09:01)
[2022-06-28] MEDS: escitalopram 10 mg Tablet PO (09:01)
--- NOTE | 2022-06-28 11:03 | P.PN_ITS ---
Subjective Subjective: Patient was seen this morning, patient's daughter is at bedside he is quite upset about his fluid restrictions, he tells me he is thirsty all the time, but he does feel better he feels that his legs are more edematous after his fluid restriction, no chest pain, no palpitations. Had an extensive d iscussion about fluid restriction compliance, difficulty in diuresis, fluid overload Vitals/I&O/Wt Last Vital Signs Temp 97.8 F 06/28/22 08:00 Pulse 74 06/28/22 08:20 Resp 20 H 06/28/22 08:13 BP 131/68 06/28/22 08:00 Pulse Ox 91 06/28/22 08:13 O2 Del Method 06/28/22 08:13 O2 Flow Rate 5 06/28/22 08:13 06/27/22 06/28/22 06/28/22 22:59 06:59 14:59 Intake Total 300 / 880 650 / 1530 576 / 576 Output Total 1850 / 1850 Balance -1550 / -970 650 / -320 576 / 576 Weight last 48 hrs Weight 79.379 kg Physical Exam Const: COMMON NORMALS: no acute distress and patient oriented x3 Resp: COMMON NORMALS: normal respiratory effort, No retractions, No use of accessory muscles and clear to auscultation bilaterally AUSCULTATION: clear to auscultation bilaterally Cardio: COMMON NORMALS: regular rate, regular rhythm, S1 normal heart sound present and S2 normal heart sound present RATE: regular rate RHYTHM: regular rhythm HEART SOUNDS: S1 normal heart sound present and S2 normal heart sound present GI: OTHER: Abdomen soft, distended, fluid wave present, good bowel sounds Extremity: NARRATIVE EXTREMITY EXAM: 2+ pitting edema Neuro: COMMON NORMALS: patient oriented x3 Psych: COMMON NORMALS: mental status grossly normal Data 06/28/22 05:12 06/28/22 05:12 Micro: Microbiology 06/27/22 00:09 Blood Culture - Preliminary Blood NEGATIVE TO DATE 06/27/22 00:07 Blood Culture - Preliminary Blood NEGATIVE TO DATE A&P Assessment and plan (1) Acute on chronic congestive heart failure: (2) COPD exacerbation: (3) Recurrent pneumonia: (4) NSTEMI (non-ST elevated myocardial infarction): (5) Abdominal distention: (6) Atrial fibrillation: (7) Hypertriglyceridemia: (8) Hyperlipidemia: Qualifiers: Hyperlipidemia type: mixed hyperlipidemia Qualified Code(s): E78.2 - Mixed hyperlipidemia (9) Diabetes mellitus: (10) Hypertension: (11) Goals of care, counseling/discussion: (12) Physical deconditioning: (13) Hypoalbuminemia: (14) Transaminitis: (15) Hyponatremia: (16) Pulmonary hypertension: Plan Recurrent bilateral lower lobe pneumonia -Was told he had lateral lower lobe pneumonia during his hospitalization at [facility], and when he was in [place] I believe at [facility] he tells me -During his last hospitalization and again he had bilateral lower lobe pneumonias CT without contrast during last hospitalization showed -Lungs: Severe centrilobular emphysema. Multiple calcified granulomas in both lungs. Irregular scattered nodular consolidations scattered throughout the right lung, the largest measuring 3.6 cm. Dense consolidation in the medial left upper lobe. Dependent atelectasis in both lower lobes. Pleural spaces: Small bilateral pleural effusions, right slightly greater than left. No pneumothorax. -We will continue Rocephin and doxycycline -Sputum cultures, blood cultures, urine bacterial antigens -Given persistent shortness of breath, will order CT angiogram of the chest ordered 1. There is no evidence for pulmonary emboli. 2. There are small bilateral pleural effusions. 3. Strandy and patchy opacities and some consolidation is seen superimposed over the pleural effusions and present within the right middle lobe and lingula possibly representing atelectasis although pneumonia cannot be excluded. 4. Mildly prominent pulmonary vasculature and some ground-glass opacities are seen in the lower hemithoraces, findings that could represent mild pulmonary edema. 5. There is a background of severe centrilobular emphysema, bronchiectasis and pulmonary fibrosis. -Will discuss with pulmonary about performing a bronchoscopy Hyperglycemia on type 2 diabetes mellitus likely secondary to Solu-Medrol therapy -Hemoglobin A1c in the 8.6 -As received 5 units of Lantus early in the morning -Switch to 10 units Lantus every 24 hours -increased to high-dose sliding scale -Monitor blood sugars closely COPD exacerbation -Active wheezing on examination -DuoNeb, budesonide, home inhaler -Received 125 of Solu-Medrol in the emergency room -Continue Solu-Medrol 40 every p.o. every 24 hours Acute diastolic CHF exacerbation Recent cardiac echo LV systolic function is normal with EF of 55 to 60% ?Mild mitral regurgitation ?Trace tricuspid regurgitation. ?Moderate pulmonary hypertension ?Compared to prior echocardiogram from 2020, no significant ?changes seen. -Fluid restrictions 1000 cc -BiPAP therapy -Has received Lasix the emergency room -Continue Bumex 1 mg every 12 hours, administer albumin with Bumex, 1 dose metolazone -Potassium replacement therapy -Monitor creatinine, monitor potassium monitor magnesium, monitor BMP Moderate pulmonary hypertension -Monitor NStemi Cardiac catheter 2019 . Left main was found to have no significant disease.? Left anterior descending artery had mild disease in the midsegment.? The first diagonal branches found to have around 50 to 60% diffuse narrowing in the proximal segment.? Circumflex artery was found to have mild disease proximally.? The second obtuse marginal artery was found to have around 50 to 60% irregular diffuse narrowing in the proximal segment.? The right coronary artery also was found to have mild disease.? LV ejection fraction was 45%. LVEDP of 24 mmHg. Based on the angiogram findings and also myocardial perfusion imaging findings, it was thought to be appropriate to consider IFR of the circumflex and diagonal artery lesions. These were performed by Dr. Espinosa. The IFR was above 0.95 at both these sites. Based on this, it was decided to treat the patient medically. -Serial EKGs, serial troponins, telemetry monitoring -No complaints of chest pain -Continue Eliquis, carvedilol A. fib -Currently not exacerbation continue amiodarone, continue Coreg, continue Eliqu is Significant abdominal distention -Does have a umbilical hernia, reducible, abdomen distended, fluid wave present -Has transaminitis, hypoalbuminemia -All evidence of potential liver cirrhosis, etiology unclear possibly secondary to congestive hepatopathy -CT scan abdomen pelvis 1. There is a small volume of ascites present. 2. Subtle increased density within the gallbladder lumen may represent gallbladder sludge. There is no findings to suggest cholecystitis however. 3. Two benign appearing cysts are seen in the left kidney, the largest measuring 2.8 cm. 4. Bilateral nonobstructing renal calculi 5. Diverticulosis, most numerous within the sigmoid colon. There are no findings to suggest diverticulitis. 6. Left inguinal hernia containing fat and fluid. 7. There is no evidence for occlusion, stenosis, aneurysmal dilatation or extravasation the visualized arteries of the abdomen and pelvis. -Has a history of hep c, which was treated, viral load, AMA, SEVERIANO, ferritin Abdominal disc patient, with evidence of liver cirrhosis, ultrasound does show ascites but not significant enough to tap Lactic acidosis, monitor Type 2 diabetes mellitus, low-dose sliding scale Hypoalbuminemia as above Transaminitis as above Hyponatremia, cholecystectomy liver cirrhosis Deconditioning, PT OT Goals of care discussion patient is a full code Plan for today monitor blood sugars closely, continue diuresis,, continue fluid restrictions, PT OT, monitor abdominal distention Attestations Medical Necessity Statement*: Patient requires half position for fluid overload, requiring diuresis, COPD exacerbation, A. fib, NSTEMI Time Spent in Patient Care: Greater than 35 minutes (>than 50% of time spent in counselling and/or direct pt care on unit) . Coding Level of Care Code Acute Code for Chg Fwd Diagnoses Acute on chronic congestive heart failure I50.9 COPD exacerbation J44.1 Recurrent pneumonia J18.9 NSTEMI (non-ST elevated myocardial infarction) I21.4 Abdominal distention R14.0 Atrial fibrillation I48.91 Hypertriglyceridemia E78.1 Hyperlipidemia E78.2 Hyperlipidemia type: mixed hyperlipidemia Diabetes mellitus E11.9 Hypertension I10 Goals of care, counseling/discussion Z71.89 Physical deconditioning R53.81 Hypoalbuminemia E88.09 Transaminitis R74.01 Hyponatremia E87.1 Pulmonary hypertension I27.20
[2022-06-28 11:39] LABS: Glucose Point of Care 325 mg/dL (70-110)
[2022-06-28] MEDS: insulin lispro 100 unit/1 mL SUBCUT ×3 (11:46→21:16)
[2022-06-28] MEDS: doxycycline 100 MG in sodium chloride 0.9% (plus) 100 ML IV ×2 (12:38→23:11)
--- NOTE | 2022-06-28 12:55 | PC.OT ---
OT TREATMENT ATTEMPTED. PATIENT STATED THAT HE DIDN'T HAVE A GOOD NIGHT AND WAS TOO TIRED AND NOT FEELING WELL TODAY. WILL ATTEMPT AGAIN IN P.M.
[2022-06-28 13:04] LABS: COMPLEMENT COMPONENT C3C 135 mg/dL (82-185); COMPLEMENT COMPONENT C4C 11 mg/dL (15-53)
[2022-06-28 16:31] LABS: CENTROMERE B ANTIBODY <1.0 NEG AI (<1.0 NEG); JO-1 ANTIBODY <1.0 NEG AI (<1.0 NEG); RNP ANTIBODY <1.0 NEG AI (<1.0 NEG); SCL-70 ANTIBODY <1.0 NEG AI (<1.0 NEG); SJOGREN'S ANTIBODY (SS-A) <1.0 NEG AI (<1.0 NEG); SM ANTIBODY <1.0 NEG AI (<1.0 NEG); SS-B <1.0 NEG AI (<1.0 NEG)
[2022-06-28 17:03] LABS: Glucose Point of Care 375 mg/dL (70-110)
[2022-06-28] MEDS: insulin glargine 100 units/1 mL 10 UNIT SUBCUT (17:42)
[2022-06-28 18:09] LABS: THYROID PEROXIDASE ANTIBODIES 1 IU/mL (<9)
[2022-06-28] MEDS: tamsulosin 0.4 mg Capsule PO (20:00)
[2022-06-28 20:29] LABS: Glucose Point of Care 441 mg/dL (70-110)
[2022-06-28] MEDS: pantoprazole 40 mg SDV IVP (22:17)
[2022-06-28] MEDS: cefTRIAXone 1,000 MG in sodium chloride 0.9% (plus) 50 ML 100 MG IV (22:17)
[2022-06-28 22:31] LABS: HEP C RNA Viral Load Quant <1.18 NOT DETECTED Log IU/mL (NOT DETECTED); HEP C RNA Viral Load Quant <15 NOT DETECTED IU/mL (NOT DETECTED)
[2022-06-29] VITALS (10 sets, daily range): BP systolic 137–159; BP diastolic 59–90; PULSE 67–83; RESP 15–20; TEMP 36.4–36.8; O2SAT 90–94
[2022-06-29] MEDS: acetaminophen 325 mg Tablet 650 MG PO (04:46)
[2022-06-29 04:50] LABS: Basophils % 0.2 %; Eosinophils % 0.1 %; Hematocrit 33.6 % (42.0-52.0); Hemoglobin 10.6 g/dL (11.7-16.6); Lymphocytes % 9.6 %; Mean Corpuscular HGB Conc 31.5 g/dL (30.0-36.0); Mean Corpuscular Hemoglobin 26.8 pg (28.0-34.0); Mean Corpuscular Volume 84.8 fl (80-94); Mean Platelet Volume 10.6 fL (7.4-10.4); Monocytes # 0.6 10^3/uL (0.2-0.9); Monocytes % 5.9 %; Neutrophils # 8.49 10^3/uL (1.8-7.7); Neutrophils % 83.2 %; Nucleated Red Blood Cells % 0 %; Platelet Count 244 10^3/cmm (130-400); Red Blood Count 3.96 10^6/uL (4.1-5.3); Red Cell Distribution Width 17.2 % (12.1-15.1); White Blood Count 10.2 10^3/uL (4.0-10.0)
[2022-06-29 05:01] LABS: INR 2.06 (0.8-1.2)
[2022-06-29 05:10] LABS: Alanine Aminotransferase 103 U/L (0-41); Albumin Level 3.8 g/dL (3.5-5.2); Alkaline Phosphatase 204 U/L (40-130); Anion Gap 17.2 (5-19); Aspartate Amino Transferase 107 U/L (0-40); Blood Urea Nitrogen 39 mg/dL (8-23); Calcium 8.6 mg/dL (8.5-10.5); Carbon Dioxide 29 mmol/L (22-29); Chloride 97 mmol/L (98-107); Globulin 2.4 g/dL (1.3-4.6); Glomerular Filtration Rate 66.6 mL/min (90-130); Glucose 128 mg/dL (65-115); Magnesium 2.6 mg/dL (1.7-2.3); Osmolality Calculated 299 mOsm/kg (285-295); Potassium 4.2 mmol/L (3.5-5.1); Sodium 139 mmol/L (136-145); Total Bilirubin 0.6 mg/dL (0.15-1.2); Total Protein 6.2 g/dL (6.6-8.7)
[2022-06-29 05:11] LABS: Lactate (Lactic Acid level) 2.2 mmol/L (0.5-2.2)
[2022-06-29 05:15] LABS: NT Pro B Type Natriuretic Pept 7653 pg/mL (0-125)
[2022-06-29] MEDS: bumetanide 0.25 mg/mL SDV 4 mL 1 MG IVP ×3 (05:24→22:19)
[2022-06-29 05:25] LABS: ANA SCREEN, IFA NEGATIVE (NEGATIVE)
[2022-06-29 06:50] LABS: Glucose Point of Care 115 mg/dL (70-110)
[2022-06-29] MEDS: metOLazone 5 MG Tablet PO (08:14)
[2022-06-29] MEDS: atorvastatin 40 mg Tablet 20 MG PO (08:14)
[2022-06-29] MEDS: predniSONE 20 mg Tablet 40 MG PO (08:14)
[2022-06-29] MEDS: apixaban 5 mg Tablet PO ×2 (08:14→17:20)
[2022-06-29] MEDS: amiodarone 200 mg Tablet 400 MG PO (08:14)
[2022-06-29] MEDS: magnesium lactate 84 mg Tablet PO ×2 (08:17→17:20)
[2022-06-29] MEDS: albuterol 2.5 mg/3 mL Neb INHALATION ×2 (08:40→20:55)
[2022-06-29] MEDS: ipratropium 0.5 mg/2.5 mL Neb INHALATION ×2 (08:40→20:55)
--- NOTE | 2022-06-29 10:38 | PM.PN ---
Subjective Subjective: Patient continues to complain of bilateral lower extremity edema today, all the way up to his knees, no fevers, chills, no nausea, no vomiting, no chest pain Vitals/I&O/Wt Last Vital Signs Temp 97.5 F L 06/29/22 08:00 Pulse 70 06/29/22 08:40 Resp 18 06/29/22 08:40 BP 137/68 06/29/22 08:00 Pulse Ox 94 06/29/22 08:40 O2 Del Method 06/29/22 08:40 O2 Flow Rate 5 06/29/22 08:40 06/28/22 06/29/22 06/29/22 22:59 06:59 14:59 Intake Total 340 / 1016 150 / 1166 460 / 460 Output Total 2200 / 2200 425 / 2625 875 / 875 Balance -1860 / -1184 -275 / -1459 -415 / -415 Physical Exam Const: COMMON NORMALS: no acute distress and patient oriented x3 Resp: COMMON NORMALS: normal respiratory effort, No retractions, No use of accessory muscles and clear to auscultation bilaterally AUSCULTATION: clear to auscultation bilaterally Cardio: COMMON NORMALS: regular rate, regular rhythm, S1 normal heart sound present and S2 normal heart sound present RATE: regular rate RHYTHM: regular rhythm HEART SOUNDS: S1 normal heart sound present and S2 normal heart sound present GI: COMMON NORMALS: Normal to inspection, nondistended, normoactive bowel sounds present and non-tender Extremity: COMMON NORMALS: no pedal edema Neuro: COMMON NORMALS: patient oriented x3 Psych: COMMON NORMALS: mental status grossly normal Urinary Catheter Management: Baig: Cath Placed During This Visit: yes Urinary Catheter Date of Insertion: 06/29/22 Urinary Catheter Time of Insertion: 09:58 Data 06/29/22 04:09 06/29/22 04:09 A&P Assessment and plan (1) Acute on chronic congestive heart failure: (2) COPD exacerbation: (3) Recurrent pneumonia: (4) NSTEMI (non-ST elevated myocardial infarction): (5) Abdominal distention: (6) Atrial fibrillation: (7) Hypertriglyceridemia: (8) Hyperlipidemia: Qualifiers: Hyperlipidemia type: mixed hyperlipidemia Qualified Code(s): E78.2 - Mixed hyperlipidemia (9) Diabetes mellitus: (10) Hypertension: (11) Goals of care, counseling/discussion: (12) Physical deconditioning: (13) Hypoalbuminemia: (14) Transaminitis: (15) Hyponatremia: (16) Pulmonary hypertension: Plan Recurrent bilateral lower lobe pneumonia -Was told he had lateral lower lobe pneumonia during his hospitalization at [place], and when he was in [place] I believe at [facility] he tells me -During his last hospitalization and again he had bilateral lower lobe pneumonias CT without contrast during last hospitalization showed -Lungs: Severe centrilobular emphysema. Multiple calcified granulomas in both lungs. Irregular scattered nodular consolidations scattered throughout the right lung, the largest measuring 3.6 cm. Dense consolidation in the medial left upper lobe. Dependent atelectasis in both lower lobes. Pleural spaces: Small bilateral pleural effusions, right slightly greater than left. No pneumothorax. -We will continue Rocephin and doxycycline -Sputum cultures, blood cultures, urine bacterial antigens -Given persistent shortness of breath, will order CT angiogram of the chest ordered 1. There is no evidence for pulmonary emboli. 2. There are small bilateral pleural effusions. 3. Strandy and patchy opacities and some consolidation is seen superimposed over the pleural effusions and present within the right middle lobe and lingula possibly representing atelectasis although pneumonia cannot be excluded. 4. Mildly prominent pulmonary vasculature and some ground-glass opacities are seen in the lower hemithoraces, findings that could represent mild pulmonary edema. 5. There is a background of severe centrilobular emphysema, bronchiectasis and pulmonary fibrosis. -Continue Rocephin, doxycycline Hyperglycemia on type 2 diabetes mellitus likely secondary to Solu-Medrol therapy -Hemoglobin A1c in the 8.6 -Lantus 10 units every 24 hours -increased to high-dose sliding scale -Monitor blood sugars closely COPD exacerbation -Active wheezing on examination -DuoNeb, budesonide, home inhaler -Received 125 of Solu-Medrol in the emergency room -Continue Solu-Medrol 40 every p.o. every 24 hours Acute diastolic CHF exacerbation Recent cardiac echo LV systolic function is normal with EF of 55 to 60% ?Mild mitral regurgitation ?Trace tricuspid regurgitation. ?Moderate pulmonary hypertension ?Compared to prior echocardiogram from 2019, no significant ?changes seen. -Fluid restrictions 1000 cc -BiPAP therapy -Has received Lasix the emergency room -Increase Bumex to 1 mg every 8 hours, with albumin, 1 dose metolazone -Add spironolactone 50 mg p.o. daily -Potassium replacement therapy -Monitor creatinine, monitor potassium monitor magnesium, monitor BMP Moderate pulmonary hypertension -Monitor NStemi Cardiac catheter 2019 . Left main was found to have no significant disease.? Left anterior descending artery had mild disease in the midsegment.? The first diagonal branches found to have around 50 to 60% diffuse narrowing in the proximal segment.? Circumflex artery was found to have mild disease proximally.? The second obtuse marginal artery was found to have around 50 to 60% irregular diffuse narrowing in the proximal segment.? The right coronary artery also was found to have mild disease.? LV ejection fraction was 45%. LVEDP of 24 mmHg. Based on the angiogram findings and also myocardial perfusion imaging findings, it was thought to be appropriate to consider IFR of the circumflex and diagonal artery lesions. These were performed by Dr. Espinosa. The IFR was above 0.95 at both these sites. Based on this, it was decided to treat the patient medically. -Serial EKGs, serial troponins, telemetry monitoring -No complaints of chest pain -Continue Eliquis, carvedilol A. fib -Currently not exacerbation continue amiodarone, continue Coreg, continue Eliquis Significant abdominal distention -Does have a umbilical hernia, reducible, abdomen distended, fluid wave present -Has transaminitis, hypoalbuminemia -All evidence of potential liver cirrhosis, etiology unclear possibly secondary to congestive hepatopathy -CT scan abdomen pelvis 1. There is a small volume of ascites present. 2. Subtle increased density within the gallbladder lumen may represent gallbladder sludge. There is no findings to suggest cholecystitis however. 3. Two benign appearing cysts are seen in the left kidney, the largest measuring 2.8 cm. 4. Bilateral nonobstructing renal calculi 5. Diverticulosis, most numerous within the sigmoid colon. There are no findings to suggest diverticulitis. 6. Left inguinal hernia containing fat and fluid. 7. There is no evidence for occlusion, stenosis, aneurysmal dilatation or extravasation the visualized arteries of the abdomen and pelvis. -Has a history of hep c, which was treated, viral load, AMA, SEVERIANO, ferritin Abdominal disc patient, with evidence of liver cirrhosis, ultrasound does show ascites but not significant enough to tap Lactic acidosis, monitor Type 2 diabetes mellitus, low-dose sliding scale Hypoalbuminemia as above Transaminitis as above Hyponatremia, cholecystectomy liver cirrhosis Deconditioning, PT OT Goals of care discussion patient is a full code Plan for today monitor blood sugars closely, increase diuresis add spironolactone add metolazone Attestations Medical Necessity Statement*: Patient requires position for fluid overload, systolic diastolic CHF exacerbation Coding Level of Care Code Acute Code for Chg Fwd Diagnoses Acute on chronic congestive heart failure I50.9 COPD exacerbation J44.1 Recurrent pneumonia J18.9 NSTEMI (non-ST elevated myocardial infarction) I21.4 Abdominal distention R14.0 Atrial fibrillation I48.91 Hypertriglyceridemia E78.1 Hyperlipidemia E78.2 Hyperlipidemia type: mixed hyperlipidemia Diabetes mellitus E11.9 Hypertension I10 Goals of care, counseling/discussion Z71.89 Physical deconditioning R53.81 Hypoalbuminemia E88.09 Transaminitis R74.01 Hyponatremia E87.1 Pulmonary hypertension I27.20
[2022-06-29 11:15] LABS: Glucose Point of Care 267 mg/dL (70-110)
[2022-06-29] MEDS: doxycycline 100 MG in sodium chloride 0.9% (plus) 100 ML IV ×2 (11:34→23:57)
[2022-06-29] MEDS: spironolactone 25 mg Tablet 50 MG PO (11:35)
[2022-06-29] MEDS: insulin lispro 100 unit/1 mL SUBCUT ×3 (12:37→21:41)
[2022-06-29 13:45] LABS: COMPLEMENT, TOTAL (CH50) 41 U/mL (31-60)
[2022-06-29 16:57] LABS: Glucose Point of Care 425 mg/dL (70-110)
[2022-06-29] MEDS: fluticasone nasal spray 16gm Btl 2 SPRAY NASAL (17:20)
[2022-06-29] MEDS: insulin glargine 100 units/1 mL 10 UNIT SUBCUT (18:12)
[2022-06-29] MEDS: tamsulosin 0.4 mg Capsule PO (20:06)
[2022-06-29 20:54] LABS: Glucose Point of Care 435 mg/dL (70-110)
[2022-06-29] MEDS: pantoprazole 40 mg SDV IVP (23:27)
[2022-06-29] MEDS: cefTRIAXone 1,000 MG in sodium chloride 0.9% (plus) 50 ML 100 MG IV (23:27)
[2022-06-30] VITALS (14 sets, daily range): BP systolic 133–156; BP diastolic 64–73; PULSE 73–83; RESP 16–22; TEMP 36.5–37.4; O2SAT 88–92
[2022-06-30 02:48] LABS: Glucose Point of Care 211 mg/dL (70-110)
[2022-06-30 05:01] LABS: Basophils % 0.1 %; Eosinophils % 0.3 %; Hematocrit 34.3 % (42.0-52.0); Hemoglobin 10.8 g/dL (11.7-16.6); Lymphocytes % 9.6 %; Mean Corpuscular HGB Conc 31.5 g/dL (30.0-36.0); Mean Corpuscular Hemoglobin 26.7 pg (28.0-34.0); Mean Corpuscular Volume 84.7 fl (80-94); Mean Platelet Volume 10.7 fL (7.4-10.4); Monocytes # 0.6 10^3/uL (0.2-0.9); Monocytes % 5.3 %; Neutrophils # 8.59 10^3/uL (1.8-7.7); Neutrophils % 83.2 %; Nucleated Red Blood Cells % 0 %; Platelet Count 245 10^3/cmm (130-400); Red Blood Count 4.05 10^6/uL (4.1-5.3); Red Cell Distribution Width 17.2 % (12.1-15.1); White Blood Count 10.3 10^3/uL (4.0-10.0)
[2022-06-30 05:15] LABS: INR 1.92 (0.8-1.2)
[2022-06-30] MEDS: bumetanide 0.25 mg/mL SDV 4 mL 1 MG IVP ×4 (05:18→23:28)
[2022-06-30 05:33] LABS: Alanine Aminotransferase 108 U/L (0-41); Albumin Level 4.2 g/dL (3.5-5.2); Alkaline Phosphatase 201 U/L (40-130); Anion Gap 18.2 (5-19); Aspartate Amino Transferase 125 U/L (0-40); Blood Urea Nitrogen 44 mg/dL (8-23); Calcium 9.4 mg/dL (8.5-10.5); Carbon Dioxide 33 mmol/L (22-29); Chloride 94 mmol/L (98-107); Globulin 2.5 g/dL (1.3-4.6); Glomerular Filtration Rate 60.2 mL/min (90-130); Glucose 168 mg/dL (65-115); Magnesium 2.3 mg/dL (1.7-2.3); NT Pro B Type Natriuretic Pept 9859 pg/mL (0-125); Osmolality Calculated 307 mOsm/kg (285-295); Potassium 4.2 mmol/L (3.5-5.1); Sodium 141 mmol/L (136-145); Total Bilirubin 0.8 mg/dL (0.15-1.2); Total Protein 6.7 g/dL (6.6-8.7)
[2022-06-30 06:35] LABS: Glucose Point of Care 145 mg/dL (70-110)
[2022-06-30] MEDS: albuterol 2.5 mg/3 mL Neb INHALATION (07:51)
[2022-06-30] MEDS: ipratropium 0.5 mg/2.5 mL Neb INHALATION (07:52)
[2022-06-30] MEDS: metOLazone 5 MG Tablet 10 MG PO (08:20)
[2022-06-30] MEDS: fluticasone nasal spray 16gm Btl 2 SPRAY NASAL ×2 (08:20→17:34)
[2022-06-30] MEDS: apixaban 5 mg Tablet PO ×2 (08:21→17:32)
[2022-06-30] MEDS: predniSONE 20 mg Tablet 40 MG PO (08:21)
[2022-06-30] MEDS: doxycycline 100 mg Tablet PO ×2 (08:21→17:32)
[2022-06-30] MEDS: magnesium lactate 84 mg Tablet PO ×2 (08:21→17:32)
[2022-06-30] MEDS: amiodarone 200 mg Tablet 400 MG PO (08:21)
[2022-06-30] MEDS: insulin lispro 100 unit/1 mL SUBCUT ×4 (08:22→22:13)
[2022-06-30] MEDS: atorvastatin 40 mg Tablet 20 MG PO (08:22)
[2022-06-30] MEDS: escitalopram 10 mg Tablet PO (08:22)
[2022-06-30] MEDS: potassium chloride ER 20 mEq Tablet 40 MEQ PO (08:22)
[2022-06-30] MEDS: morphine 4 mg/mL SDV 1 mL 1 MG IVP ×2 (10:42→16:04)
[2022-06-30] MEDS: spironolactone 25 mg Tablet 50 MG PO (10:43)
[2022-06-30 11:05] LABS: DNA AB (DS) CRITHIDIA,IFA NEGATIVE (NEGATIVE)
[2022-06-30 11:26] LABS: Glucose Point of Care 249 mg/dL (70-110)
--- NOTE | 2022-06-30 11:50 | PM.PN ---
Subjective Subjective: Patient was seen this morning, he tells me that he is still frustrated about his persistent edema, he still feels short of breath with minimal exertion, no chest pain, no palpitations Vitals/I&O/Wt Last Vital Signs Temp 98.5 F 06/30/22 08:00 Pulse 73 06/30/22 11:01 Resp 16 06/30/22 11:01 BP 142/64 06/30/22 08:00 Pulse Ox 90 06/30/22 11:01 O2 Del Method 06/30/22 11:01 O2 Flow Rate 5 06/30/22 11:01 06/29/22 06/30/22 06/30/22 22:59 06:59 14:59 Intake Total 620 / 1660 1550 / 3210 940 / 940 Output Total 1800 / 2675 1600 / 4275 1000 / 1000 Balance -1180 / -1015 -50 / -1065 -60 / -60 Physical Exam Const: COMMON NORMALS: no acute distress and patient oriented x3 Resp: COMMON NORMALS: normal respiratory effort, No retractions and No use of accessory muscles AUSCULTATION: crackles Cardio: COMMON NORMALS: regular rate, regular rhythm, S1 normal heart sound present and S2 normal heart sound present RATE: regular rate RHYTHM: regular rhythm HEART SOUNDS: S1 normal heart sound present and S2 normal heart sound present GI: COMMON NORMALS: Normal to inspection, nondistended, normoactive bowel sounds present and non-tender Extremity: NARRATIVE EXTREMITY EXAM: 2+ pitting edema bilateral extremity Neuro: COMMON NORMALS: patient oriented x3 Psych: COMMON NORMALS: mental status grossly normal Urinary Catheter Management: Baig: Cath Placed During This Visit: yes Reason for Continuing Indwelling Catheter: Other Urinary Catheter Date of Insertion: 06/29/22 Urinary Catheter Time of Insertion: 09:58 Data 06/30/22 04:24 06/30/22 04:24 A&P Assessment and plan (1) Acute on chronic congestive heart failure: (2) COPD exacerbation: (3) Recurrent pneumonia: (4) NSTEMI (non-ST elevated myocardial infarction): (5) Abdominal distention: (6) Atrial fibrillation: (7) Hypertriglyceridemia: (8) Hyperlipidemia: Qualifiers: Hyperlipidemia type: mixed hyperlipidemia Qualified Code(s): E78.2 - Mixed hyperlipidemia (9) Diabetes mellitus: (10) Hypertension: (11) Goals of care, counseling/discussion: (12) Physical deconditioning: (13) Hypoalbuminemia: (14) Transaminitis: (15) Hyponatremia: (16) Pulmonary hypertension: Plan Recurrent bilateral lower lobe pneumonia -Was told he had lateral lower lobe pneumonia during his hospitalization at [place], and when he was in [place] I believe at [facility] he tells me -During his last hospitalization and again he had bilateral lower lobe pneumonias CT without contrast during last hospitalization showed -Lungs: Severe centrilobular emphysema. Multiple calcified granulomas in both lungs. Irregular scattered nodular consolidations scattered throughout the right lung, the largest measuring 3.6 cm. Dense consolidation in the medial left upper lobe. Dependent atelectasis in both lower lobes. Pleural spaces: Small bilateral pleural effusions, right slightly greater than left. No pneumothorax. -We will continue Rocephin and doxycycline -Sputum cultures, blood cultures, urine bacterial antigens -Given persistent shortness of breath, will order CT angiogram of the chest ordered 1. There is no evidence for pulmonary emboli. 2. There are small bilateral pleural effusions. 3. Strandy and patchy opacities and some consolidation is seen superimposed over the pleural effusions and present within the right middle lobe and lingula possibly representing atelectasis although pneumonia cannot be excluded. 4. Mildly prominent pulmonary vasculature and some ground-glass opacities are seen in the lower hemithoraces, findings that could represent mild pulmonary edema. 5. There is a background of severe centrilobular emphysema, bronchiectasis and pulmonary fibrosis. -Stop Rocephin, stop IV doxycycline switch to p.o. doxycycline Hyperglycemia on type 2 diabetes mellitus likely secondary to Solu-Medrol therapy -Hemoglobin A1c in the 8.6 -Lantus 10 units every 24 hours -increased to high-dose sliding scale -Monitor blood sugars closely COPD exacerbation -Active wheezing on examination -DuoNeb, budesonide, home inhaler -Received 125 of Solu-Medrol in the emergency room -Continue Solu-Medrol 40 every p.o. every 24 hours Acute diastolic CHF exacerbation Recent cardiac echo LV systolic function is normal with EF of 55 to 60% ?Mild mitral regurgitation ?Trace tricuspid regurgitation. ?Moderate pulmonary hypertension ?Compared to prior echocardiogram from 2019, no significant ?changes seen. -Fluid restrictions 1500 cc, patient is noncompliant with fluid restriction therapy I have discussed this with him multiple times, he tells me that it is hard for him to restrict fluids, yesterday he took in over 2 L, I advised him that the more fluids he takes and the harder it is for us to diurese him and the longer is he can here in the hospital and we have to use higher doses of diuretics that is assisted with increased risk of complications, he tells me that he cannot do 1500 cc but he will do his best, advised of compliance -BiPAP therapy -Has received Lasix the emergency room -Increase Bumex to 1 mg every 6 hours, with albumin, 1 dose metolazone -Continue spironolactone 50 mg p.o. daily -Potassium replacement therapy -Monitor creatinine, monitor potassium monitor magnesium, monitor BMP Moderate pulmonary hypertension -Monitor NStemi Cardiac catheter 2020 . Left main was found to have no significant disease.? Left anterior descending artery had mild disease in the midsegment.? The first diagonal branches found to have around 50 to 60% diffuse narrowing in the proximal segment.? Circumflex artery was found to have mild disease proximally.? The second obtuse marginal artery was found to have around 50 to 60% irregular diffuse narrowing in the proximal segment.? The right coronary artery also was found to have mild disease.? LV ejection fraction was 45%. LVEDP of 24 mmHg. Based on the angiogram findings and also myocardial perfusion imaging findings, it was thought to be appropriate to consider IFR of the circumflex and diagonal artery lesions. These were performed by Dr. Espinosa. The IFR was above 0.95 at both these sites. Based on this, it was decided to treat the patient medically. -Serial EKGs, serial troponins, telemetry monitoring -No complaints of chest pain -Continue Eliquis, carvedilol A. fib -Currently not exacerbation continue amiodarone, continue Coreg, continue Eliquis Significant abdominal distention -Does have a umbilical hernia, reducible, abdomen distended, fluid wave present -Has transaminitis, hypoalbuminemia -All evidence of potential liver cirrhosis, etiology unclear possibly secondary to congestive hepatopathy -CT scan abdomen pelvis 1. There is a small volume of ascites present. 2. Subtle increased density within the gallbladder lumen may represent gallbladder sludge. There is no findings to suggest cholecystitis however. 3. Two benign appearing cysts are seen in the left kidney, the largest measuring 2.8 cm. 4. Bilateral nonobstructing renal calculi 5. Diverticulosis, most numerous within the sigmoid colon. There are no findings to suggest diverticulitis. 6. Left inguinal hernia containing fat and fluid. 7. There is no evidence for occlusion, stenosis, aneurysmal dilatation or extravasation the visualized arteries of the abdomen and pelvis. -Has a history of hep c, which was treated, viral load, AMA, SEVERIANO, ferritin Abdominal disc patient, with evidence of liver cirrhosis, ultrasound does show ascites but not significant enough to tap Lactic acidosis, monitor Type 2 diabetes mellitus, low-dose sliding scale Hypoalbuminemia as above Transaminitis as above Hyponatremia, cholecystectomy liver cirrhosis Deconditioning, PT OT Goals of care discussion patient is a full code Plan for today monitor blood sugars closely increase diuresis to every 6 hours, 1 dose metolazone fluid restriction therapy monitor clinically Attestations Medical Necessity Statement*: Patient requires hospice patient for fluid overload, acute systolic diastolic CHF exacerbation Coding Level of Care Code Acute Code for Chg Fwd Diagnoses Acute on chronic congestive heart failure I50.9 COPD exacerbation J44.1 Recurrent pneumonia J18.9 NSTEMI (non-ST elevated myocardial infarction) I21.4 Abdominal distention R14.0 Atrial fibrillation I48.91 Hypertriglyceridemia E78.1 Hyperlipidemia E78.2 Hyperlipidemia type: mixed hyperlipidemia Diabetes mellitus E11.9 Hypertension I10 Goals of care, counseling/discussion Z71.89 Physical deconditioning R53.81 Hypoalbuminemia E88.09 Transaminitis R74.01 Hyponatremia E87.1 Pulmonary hypertension I27.20
[2022-06-30] MEDS: acetaminophen 325 mg Tablet 650 MG PO (14:00)
--- NOTE | 2022-06-30 15:45 | PC.OT ---
OT tx attempted at this time. Pt lying in bed with cool cloth on his head. pt states I'm hot,I don't feel good, I may be getting the flu . Pt declines OT tx at this time. Nurse aware and attending to pts request for a fan. OT to attempt again tomorrow.
[2022-06-30 17:26] LABS: Glucose Point of Care 471 mg/dL (70-110)
[2022-06-30] MEDS: insulin glargine 100 units/1 mL 10 UNIT SUBCUT (17:30)
[2022-06-30 22:02] LABS: Glucose Point of Care 471 mg/dL (70-110)
[2022-06-30] MEDS: tamsulosin 0.4 mg Capsule PO (22:13)
[2022-06-30] MEDS: pantoprazole 40 mg SDV IVP (23:28)
[2022-06-30] MEDS: hyDROXYzine 25 mg Capsule PO (23:51)
[2022-07-01] VITALS (11 sets, daily range): BP systolic 123–164; BP diastolic 61–80; PULSE 67–78; RESP 16–20; TEMP 36.3–36.8; O2SAT 89–95
[2022-07-01 05:05] LABS: Basophils % 0.1 %; Eosinophils % 0.1 %; Hematocrit 34.8 % (42.0-52.0); Hemoglobin 11.1 g/dL (11.7-16.6); Lymphocytes # 1.2 10^3/uL (0.8-4.8); Lymphocytes % 9.8 %; Mean Corpuscular HGB Conc 31.9 g/dL (30.0-36.0); Mean Corpuscular Hemoglobin 26.6 pg (28.0-34.0); Mean Corpuscular Volume 83.5 fl (80-94); Mean Platelet Volume 10.3 fL (7.4-10.4); Monocytes # 0.6 10^3/uL (0.2-0.9); Monocytes % 4.9 %; Neutrophils # 9.97 10^3/uL (1.8-7.7); Neutrophils % 84.2 %; Nucleated Red Blood Cells % 0 %; Platelet Count 232 10^3/cmm (130-400); Red Blood Count 4.17 10^6/uL (4.1-5.3); Red Cell Distribution Width 16.7 % (12.1-15.1); White Blood Count 11.8 10^3/uL (4.0-10.0)
[2022-07-01 05:46] LABS: Blood Urea Nitrogen 56 mg/dL (8-23); Calcium 10.2 mg/dL (8.5-10.5); Carbon Dioxide 36 mmol/L (22-29); Chloride 84 mmol/L (98-107); Glomerular Filtration Rate 54.9 mL/min (90-130); Glucose 171 mg/dL (65-115); NT Pro B Type Natriuretic Pept 8988 pg/mL (0-125); Osmolality Calculated 302 mOsm/kg (285-295); Sodium 136 mmol/L (136-145)
[2022-07-01 06:26] LABS: Glucose Point of Care 173 mg/dL (70-110)
[2022-07-01] MEDS: bumetanide 0.25 mg/mL SDV 4 mL 1 MG IVP ×2 (06:28→08:22)
[2022-07-01 06:29] LABS: Magnesium 2.2 mg/dL (1.7-2.3)
[2022-07-01] MEDS: insulin lispro 100 unit/1 mL SUBCUT ×3 (08:21→17:01)
[2022-07-01] MEDS: doxycycline 100 mg Tablet PO ×2 (08:22→17:01)
[2022-07-01] MEDS: metOLazone 5 MG Tablet PO (08:22)
[2022-07-01] MEDS: atorvastatin 40 mg Tablet 20 MG PO (08:22)
[2022-07-01] MEDS: predniSONE 20 mg Tablet 40 MG PO (08:23)
[2022-07-01] MEDS: amiodarone 200 mg Tablet 400 MG PO (08:23)
[2022-07-01] MEDS: apixaban 5 mg Tablet PO ×2 (08:23→17:02)
[2022-07-01] MEDS: nystatin powder 15 gm Btl 1 APPLIC TOPICAL ×2 (08:31→17:02)
[2022-07-01] MEDS: fluticasone nasal spray 16gm Btl 2 SPRAY NASAL ×2 (08:32→17:02)
[2022-07-01] MEDS: magnesium lactate 84 mg Tablet PO ×2 (08:48→17:02)
[2022-07-01] MEDS: albuterol 2.5 mg/3 mL Neb INHALATION ×2 (08:48→11:39)
--- NOTE | 2022-07-01 09:03 | PC.SOCIAL ---
IMM update IMM updated with patient. Verbalized an understanding. Copy Pg 2 provided. Initialled, dated, timed, and placed in chart.
[2022-07-01] MEDS: metOLazone 5 MG Tablet 10 MG PO (10:17)
[2022-07-01 10:51] LABS: Glucose Point of Care 292 mg/dL (70-110)
[2022-07-01] MEDS: spironolactone 25 mg Tablet 50 MG PO (12:30)
--- NOTE | 2022-07-01 14:21 | PC.NUTR ---
Pt with T2DM, please add carbohydrate consistent therapy to diet order to help maintain BG. POC BG [phone]/dL x 5 days.
[2022-07-01] MEDS: ondansetron 2 mg/ML SDV 2 mL 4 MG IVP (16:02)
[2022-07-01 16:22] LABS: Anion Gap 23.7 (5-19); Blood Urea Nitrogen 68 mg/dL (8-23); Calcium 9.8 mg/dL (8.5-10.5); Carbon Dioxide 32 mmol/L (22-29); Chloride 76 mmol/L (98-107); Glomerular Filtration Rate 54.9 mL/min (90-130); Glucose 476 mg/dL (65-115); Osmolality Calculated 305 mOsm/kg (285-295); Potassium 4.7 mmol/L (3.5-5.1); Sodium 127 mmol/L (136-145)
[2022-07-01] MEDS: insulin glargine 100 units/1 mL 10 UNIT SUBCUT (17:01)
[2022-07-01 17:02] LABS: Glucose Point of Care 525 mg/dL (70-110)
[2022-07-01 17:02] LABS: Glucose Point of Care 530 mg/dL (70-110)
--- NOTE | 2022-07-01 17:42 | P.PN_ITS ---
Subjective Subjective: Patient was seen this morning, he tells me he feels a lot better, his edema has significantly improved, he still feels a bit short of breath but significantly improved, no chest pain, Vitals/I&O/Wt Last Vital Signs Temp 98.3 F 07/01/22 16:57 Pulse 72 07/01/22 16:57 Resp 16 07/01/22 16:57 BP 141/62 07/01/22 16:57 Pulse Ox 89 L 07/01/22 16:57 O2 Del Method 07/01/22 16:57 O2 Flow Rate 5 07/01/22 16:57 07/01/22 07/01/22 07/01/22 06:59 14:59 22:59 Intake Total 340 / 1480 200 / 200 Output Total 2400 / 7220 1700 / 1700 Balance -2060 / -5740 200 / 200 -1700 / -1500 Physical Exam Const: COMMON NORMALS: no acute distress and patient oriented x3 Resp: COMMON NORMALS: normal respiratory effort, No retractions, No use of accessory muscles and clear to auscultation bilaterally AUSCULTATION: clear to auscultation bilaterally Cardio: COMMON NORMALS: regular rate, regular rhythm, S1 normal heart sound present and S2 normal heart sound present RATE: regular rate RHYTHM: regular rhythm HEART SOUNDS: S1 normal heart sound present and S2 normal heart sound present GI: COMMON NORMALS: Normal to inspection, nondistended, normoactive bowel sounds present and non-tender Extremity: COMMON NORMALS: no pedal edema Neuro: COMMON NORMALS: patient oriented x3 Psych: COMMON NORMALS: mental status grossly normal Urinary Catheter Management: Baig: Cath Placed During This Visit: yes Reason for Continuing Indwelling Catheter: Accurate Measurement of Urinary Output in Critically Ill Patients Urinary Catheter Date of Insertion: 06/29/22 Urinary Catheter Time of Insertion: 09:58 Data 07/01/22 04:54 07/01/22 15:56 Micro: Microbiology 07/01/22 03:10 Bacterial Antigens - Final Urine,Clean Catch A&P Assessment and plan (1) Acute on chronic congestive heart failure: (2) COPD exacerbation: (3) Recurrent pneumonia: (4) NSTEMI (non-ST elevated myocardial infarction): (5) Abdominal distention: (6) Atrial fibrillation: (7) Hypertriglyceridemia: (8) Hyperlipidemia: Qualifiers: Hyperlipidemia type: mixed hyperlipidemia Qualified Code(s): E78.2 - Mixed hyperlipidemia (9) Diabetes mellitus: (10) Hypertension: (11) Goals of care, counseling/discussion: (12) Physical deconditioning: (13) Hypoalbuminemia: (14) Transaminitis: (15) Hyponatremia: (16) Pulmonary hypertension: Plan Recurrent bilateral lower lobe pneumonia -Was told he had lateral lower lobe pneumonia during his hospitalization at [place], and when he was in [place] I believe at [facility] he tells me -During his last hospitalization and again he had bilateral lower lobe pneumonias CT without contrast during last hospitalization showed -Lungs: Severe centrilobular emphysema. Multiple calcified granulomas in both lungs. Irregular scattered nodular consolidations scattered throughout the right lung, the largest measuring 3.6 cm. Dense consolidation in the medial left upper lobe. Dependent atelectasis in both lower lobes. Pleural spaces: Small bilateral pleural effusions, right slightly greater than left. No pneumothorax. -We will continue Rocephin and doxycycline -Sputum cultures, blood cultures, urine bacterial antigens -Given persistent shortness of breath, will order CT angiogram of the chest ordered 1. There is no evidence for pulmonary emboli. 2. There are small bilateral pleural effusions. 3. Strandy and patchy opacities and some consolidation is seen superimposed over the pleural effusions and present within the right middle lobe and lingula possibly representing atelectasis although pneumonia cannot be excluded. 4. Mildly prominent pulmonary vasculature and some ground-glass opacities are seen in the lower hemithoraces, findings that could represent mild pulmonary edema. 5. There is a background of severe centrilobular emphysema, bronchiectasis and pulmonary fibrosis. -Continue p.o. doxycycline Hyperglycemia on type 2 diabetes mellitus likely secondary to Solu-Medrol therapy -Hemoglobin A1c in the 8.6 -Lantus 10 units every 24 hours -increased to high-dose sliding scale -Monitor blood sugars closely COPD exacerbation -Active wheezing on examination -DuoNeb, budesonide, home inhaler -Received 125 of Solu-Medrol in the emergency room -Continue Solu-Medrol 40 every p.o. every 24 hours Acute diastolic CHF exacerbation Recent cardiac echo LV systolic function is normal with EF of 55 to 60% ?Mild mitral regurgitation ?Trace tricuspid regurgitation. ?Moderate pulmonary hypertension ?Compared to prior echocardiogram from 2019, no significant ?changes seen. -Fluid restrictions 1500 cc, patient is noncompliant with fluid restriction therapy I have discussed this with him multiple times, he tells me that it is hard for him to restrict fluids, yesterday he took in over 2 L, I advised him that the more fluids he takes and the harder it is for us to diurese him and the longer is he can here in the hospital and we have to use higher doses of diuretics that is assisted with increased risk of complications, he tells me that he cannot do 1500 cc but he will do his best, advised of compliance -BiPAP therapy -Has received Lasix the emergency room -1 dose of Bumex this morning with metolazone and thereafter hold -Continue spironolactone 50 mg p.o. daily -Potassium replacement therapy -Monitor creatinine, monitor potassium monitor magnesium, monitor BMP Moderate pulmonary hypertension -Monitor NStemi Cardiac catheter 2019 . Left main was found to have no significant disease.? Left anterior descending artery had mild disease in the midsegment.? The first diagonal branches found to have around 50 to 60% diffuse narrowing in the proximal segment.? Circumflex artery was found to have mild disease proximally.? The second obtuse marginal artery was found to have around 50 to 60% irregular diffuse narrowing in the proximal segment.? The right coronary artery also was found to have mild disease.? LV ejection fraction was 45%. LVEDP of 24 mmHg. Based on the angiogram findings and also myocardial perfusion imaging findings, it was thought to be appropriate to consider IFR of the circumflex and diagonal artery lesions. These were performed by Dr. Espinosa. The IFR was above 0.95 at both these sites. Based on this, it was decided to treat the patient medically. -Serial EKGs, serial troponins, telemetry monitoring -No complaints of chest pain -Continue Eliquis, carvedilol A. fib -Currently not exacerbation continue amiodarone, continue Coreg, continue Eliquis Significant abdominal distention -Does have a umbilical hernia, reducible, abdomen distended, fluid wave present -Has transaminitis, hypoalbuminemia -All evidence of potential liver cirrhosis, etiology unclear possibly secondary to congestive hepatopathy -CT scan abdomen pelvis 1. There is a small volume of ascites present. 2. Subtle increased density within the gallbladder lumen may represent gallbladder sludge. There is no findings to suggest cholecystitis however. 3. Two benign appearing cysts are seen in the left kidney, the largest measuring 2.8 cm. 4. Bilateral nonobstructing renal calculi 5. Diverticulosis, most numerous within the sigmoid colon. There are no findings to suggest diverticulitis. 6. Left inguinal hernia containing fat and fluid. 7. There is no evidence for occlusion, stenosis, aneurysmal dilatation or extravasation the visualized arteries of the abdomen and pelvis. -Has a history of hep c, which was treated, viral load, AMA, SEVERIANO, ferritin Abdominal disc patient, with evidence of liver cirrhosis, ultrasound does show ascites but not significant enough to tap Lactic acidosis, monitor Type 2 diabetes mellitus, low-dose sliding scale Hypoalbuminemia as above Transaminitis as above Hyponatremia, cholecystectomy liver cirrhosis Deconditioning, PT OT Goals of care discussion patient is a full code Plan for today monitor blood sugars, increase Lantus to 10 units every 12 hours, 1 dose Bumex metolazone today then hold thereafter, monitor creatinine monitor urine output monitor blood work we will give his kidneys a break, monitor blood sugars closely, potential discharge tomorrow Attestations Medical Necessity Statement*: Patient requires hospital patient for fluid overload, elevated blood sugars, Coding Level of Care Code Acute Code for Chg Fwd Diagnoses Acute on chronic congestive heart failure I50.9 COPD exacerbation J44.1 Recurrent pneumonia J18.9 NSTEMI (non-ST elevated myocardial infarction) I21.4 Abdominal distention R14.0 Atrial fibrillation I48.91 Hypertriglyceridemia E78.1 Hyperlipidemia E78.2 Hyperlipidemia type: mixed hyperlipidemia Diabetes mellitus E11.9 Hypertension I10 Goals of care, counseling/discussion Z71.89 Physical deconditioning R53.81 Hypoalbuminemia E88.09 Transaminitis R74.01 Hyponatremia E87.1 Pulmonary hypertension I27.20
[2022-07-01 18:01] LABS: Glucose Point of Care 561 mg/dL (70-110)
[2022-07-01] MEDS: insulin lispro 100 unit/1 mL 10 UNIT SUBCUT (18:18)
[2022-07-01 19:19] LABS: Glucose Point of Care 533 mg/dL (70-110)
[2022-07-01] MEDS: insulin regular-human 10 UNIT in SYRINGE 1 EACH IVP (19:49)
[2022-07-01 20:17] LABS: Alanine Aminotransferase 99 U/L (0-41); Albumin Level 4.8 g/dL (3.5-5.2); Alkaline Phosphatase 164 U/L (40-130); Anion Gap 19.8 (5-19); Aspartate Amino Transferase 117 U/L (0-40); Blood Urea Nitrogen 72 mg/dL (8-23); Calcium 10.2 mg/dL (8.5-10.5); Carbon Dioxide 35 mmol/L (22-29); Chloride 78 mmol/L (98-107); Globulin 2.7 g/dL (1.3-4.6); Glomerular Filtration Rate 50.4 mL/min (90-130); Glucose 463 mg/dL (65-115); Osmolality Calculated 307 mOsm/kg (285-295); Potassium 4.8 mmol/L (3.5-5.1); Sodium 128 mmol/L (136-145); Total Bilirubin 1.2 mg/dL (0.15-1.2); Total Protein 7.5 g/dL (6.6-8.7)
[2022-07-01 20:30] LABS: Glucose Point of Care 439 mg/dL (70-110)
[2022-07-01 21:20] LABS: Glucose Point of Care 388 mg/dL (70-110)
[2022-07-01] MEDS: tamsulosin 0.4 mg Capsule PO (21:49)
[2022-07-01] MEDS: pantoprazole 40 mg SDV IVP (22:26)
[2022-07-01 22:38] LABS: Glucose Point of Care 337 mg/dL (70-110)
[2022-07-01 23:56] LABS: Glucose Point of Care 306 mg/dL (70-110)
[2022-07-02] MEDS: insulin lispro 100 unit/1 mL SUBCUT (00:18)
[2022-07-02 02:14] LABS: Basophils % 0.2 %; Eosinophils % 0.2 %; Hematocrit 35.8 % (42.0-52.0); Hemoglobin 11.6 g/dL (11.7-16.6); Mean Corpuscular HGB Conc 32.4 g/dL (30.0-36.0); Mean Corpuscular Hemoglobin 27.1 pg (28.0-34.0); Mean Corpuscular Volume 83.6 fl (80-94); Mean Platelet Volume 10.8 fL (7.4-10.4); Monocytes # 0.7 10^3/uL (0.2-0.9); Monocytes % 5.1 %; Neutrophils # 10.98 10^3/uL (1.8-7.7); Neutrophils % 85.6 %; Nucleated Red Blood Cells % 0 %; Platelet Count 249 10^3/cmm (130-400); Red Blood Count 4.28 10^6/uL (4.1-5.3); Red Cell Distribution Width 16.6 % (12.1-15.1); White Blood Count 12.8 10^3/uL (4.0-10.0)
[2022-07-02 02:50] LABS: Alanine Aminotransferase 95 U/L (0-41); Albumin Level 4.9 g/dL (3.5-5.2); Alkaline Phosphatase 151 U/L (40-130); Anion Gap 20.3 (5-19); Aspartate Amino Transferase 96 U/L (0-40); Blood Urea Nitrogen 72 mg/dL (8-23); Calcium 10.2 mg/dL (8.5-10.5); Carbon Dioxide 36 mmol/L (22-29); Chloride 82 mmol/L (98-107); Globulin 2.6 g/dL (1.3-4.6); Glomerular Filtration Rate 54.9 mL/min (90-130); Glucose 168 mg/dL (65-115); Magnesium 2.3 mg/dL (1.7-2.3); NT Pro B Type Natriuretic Pept 4929 pg/mL (0-125); Osmolality Calculated 303 mOsm/kg (285-295); Potassium 4.3 mmol/L (3.5-5.1); Sodium 134 mmol/L (136-145); Total Bilirubin 1.1 mg/dL (0.15-1.2); Total Protein 7.5 g/dL (6.6-8.7)
[2022-07-02 03:25] VITALS: BP 123/65; PULSE 72; RESP 21; TEMP 36.9; O2SAT 90
[2022-07-02 03:26] LABS: Glucose Point of Care 95 mg/dL (70-110)
[2022-07-02] MEDS: acetaminophen 325 mg Tablet 650 MG PO (03:38)
[2022-07-02 04:25] LABS: Glucose Point of Care 124 mg/dL (70-110)
[2022-07-02 06:18] LABS: Glucose Point of Care 139 mg/dL (70-110)
[2022-07-02 07:24] VITALS: BP 118/63; PULSE 68; RESP 15; TEMP 36.6; O2SAT 90
[2022-07-02] MEDS: doxycycline 100 mg Tablet PO (08:40)
[2022-07-02] MEDS: insulin glargine 100 units/1 mL 10 UNIT SUBCUT (08:40)
[2022-07-02] MEDS: magnesium lactate 84 mg Tablet PO (08:40)
[2022-07-02] MEDS: amiodarone 200 mg Tablet 400 MG PO (08:40)
[2022-07-02] MEDS: apixaban 5 mg Tablet PO (08:41)
[2022-07-02] MEDS: atorvastatin 40 mg Tablet 20 MG PO (08:41)
[2022-07-02] MEDS: fluticasone nasal spray 16gm Btl 2 SPRAY NASAL (08:41)
[2022-07-02] MEDS: escitalopram 10 mg Tablet PO (08:41)
[2022-07-02] MEDS: nystatin powder 15 gm Btl 1 APPLIC TOPICAL (08:43)
--- NOTE | 2022-07-02 10:04 | PM.DCS ---
Discharge Providers Date of Admission: 06/26/22 21:56 Date of Discharge: July 02, 2022 Attending Provider at Admission: Jameson Lima MD Attending Provider at Discharge: Jameson Lima MD Primary Care Provider: Danielle Hurt APN Diagnoses at Discharge Discharge Diagnosis (1) Acute on chronic congestive heart failure: Status: Acute (2) COPD exacerbation: Status: Acute (3) Recurrent pneumonia: Status: Acute (4) NSTEMI (non-ST elevated myocardial infarction): Status: Acute (5) Abdominal distention: Status: Acute (6) Atrial fibrillation: Status: Chronic (7) Hypertriglyceridemia: Status: Acute (8) Hyperlipidemia: Status: Acute Qualifiers: Hyperlipidemia type: mixed hyperlipidemia Qualified Code(s): E78.2 - Mixed hyperlipidemia (9) Diabetes mellitus: Status: Acute (10) Hypertension: Status: Acute (11) Goals of care, counseling/discussion: Status: Acute (12) Physical deconditioning: Status: Acute (13) Hypoalbuminemia: Status: Acute (14) Transaminitis: Status: Acute (15) Hyponatremia: Status: Acute (16) Pulmonary hypertension: Status: Acute Reason for Visit Reason for Visit: SOB Hospital Course Hospital Course Ralph Matta is a 66 year old male with a past medical history of atrial fibrillation on Eliquis, noninsulin-dependent type 2 diabetes mellitus, COPD, on 5 L, history of recurrent bilateral lower lobe pneumonia, hypertension, hyperlipidemia, hypertriglyceridemia, who presents [facility] due to increased shortness of breath, weakness, edema, abdominal distention.? Patient tells me that since May he has been told that he has recurrent bilateral lower lobe pneumonia that has not improved, this is his second round of antibiotics, he tells me that he had a discussion with Dr. To and he might need a bronchoscopy as he has a history of smoking in the past.? 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 Now he can barely walk due to shortness of breath and edema fatigue and tiredness.? Denies any significant weight loss, no night sweats,.? He continues to feel short of breath at rest with exertion that has progressively worsened since his hospitalization.? No calf pain.? Does have bilateral leg pain.? No hemoptysis.? He is taking his Eliquis as prescribed.? He has been less mobile due to shortness of breath.? History of hepatitis C status posttreatment Patient was admitted to [facility] for acute systolic diastolic CHF exacerbation, fluid overload, pulm edema, lower extremity edema required extensive diuresis with Bumex, metolazone, fluid restrictions, diuresed over 10 L, clinically improved. Will be discharged on Bumex 1 mg once daily starting tomorrow, with potassium replacement, follow-up with primary care provider next week for recheck creatinine, recheck potassium, recheck serum sodium Patient also had a COPD exacerbation during his hospitalization required steroid therapy, finished 6 Royd burst during his hospitalization There was concerns for recurrent bilateral lower lobe pneumonia during his hospitalization, his repeat CT of his chest showed right middle lobe, lingular opacities. Received broad-spectrum antibiotic therapy, discharged on doxycycline Patient also had hyperglycemia during his hospitalization likely secondary to steroid therapy, patient will be discharged on Lantus 10 units twice daily, with high-dose sliding scale as below - Please start Bumex 1 mg daily with potassium replacement tomorrow -Please limit fluid intake to 1500 mL a day -If you develop worsening shortness of breath or edema go to the emergency room -Take antibiotics as prescribed -For your type 2 diabetes mellitus, elevated blood sugars -Take Lantus 10 units twice daily -Monitor blood sugars closely, monitor for low blood sugars -Inject?humalog 3 times daily, after meals, based on sliding provided below -Please monitor your blood sugars closely -Monitor your blood sugars 3 times daily as after meals -Please record your blood sugars, and a blood sugar log -For your NovoLog -Please inject blood sugar after meals based on sliding scale provided -Do not inject insulin if you do not eat as hypoglycemia kills -This is a NovoLog sliding scale -Insulin sliding ?fingerstick? Insulin ?141-180?2 units/sq 181-220?4 units/sq ?221-260?8 units/sq ?261-300?10 units/sq ?301-350 12 units/sq ?351-400 14 units/sq 401-450?16 units/sq 451-500 18units/sq -If your blood sugar is greater than 500 go to the emergency room -If your blood sugar is less than 60 or at anytime you feel lightheaded or dizzy or diaphoretic or have chest palpitations check your blood sugar, and eat a hard candy or drink orange juice and go immediately to the emergency room -Remember hypoglycemia kills, so if his blood sugar is less than 60 we have to increase it by taking in a sugary meal such as a hard candy or orange juice and go to the emergency room -If you have any questions please call us where here to help Physical Exam Const: COMMON NORMALS: no acute distress and patient oriented x3 Resp: COMMON NORMALS: normal respiratory effort, No retractions, No use of accessory muscles and clear to auscultation bilaterally AUSCULTATION: clear to auscultation bilaterally Cardio: COMMON NORMALS: regular rate, regular rhythm, S1 normal heart sound present and S2 normal heart sound present RATE: regular rate RHYTHM: regular rhythm HEART SOUNDS: S1 normal heart sound present and S2 normal heart sound present GI: COMMON NORMALS: Normal to inspection, nondistended, normoactive bowel sounds present and non-tender Extremity: COMMON NORMALS: no pedal edema Neuro: COMMON NORMALS: patient oriented x3 Psych: COMMON NORMALS: mental status grossly normal Urinary Catheter Management: Baig: Cath Placed During This Visit: yes Reason for Continuing Indwelling Catheter: Accurate Measurement of Urinary Output in Critically Ill Patients Urinary Catheter Date of Insertion: 06/29/22 Urinary Catheter Time of Insertion: 09:58 Discharge Data Studies Completed and Pending Completed Studies During Hospitalization Category Date Time Status CT angio chest w abd pel w con Stat Cat Scan 06/26/22 21:09 Completed XR chest 1V portable [id number] Stat Exams 06/26/22 15:36 Completed US abdomen lmt fluid [id number] Routine Ultrasound 06/27/22 06:57 Completed Pending at discharge Category Date Time Status Basic Metabolic Panel AM LABS Lab 07/03/22 04:00 Ordered Complete Blood Count w/Auto AM LABS Lab 07/03/22 04:00 Ordered Hepatitis C RNA Viral Load Qnt Routine Lab 06/27/22 00:30 Received Magnesium AM LABS Lab 07/03/22 04:00 Ordered NT Pro B Type Natriuretic Pept QAM Lab 07/03/22 06:00 Ordered Sputum Culture and Gram Stain Stat Lab 06/26/22 21:06 Uncollected Radiology Impressions Chest X-Ray 06/26/22 15:36 IMPRESSION: Continued findings of bilateral infiltrative change around the perihilar mid lung region and lower lungs with areas of partial consolidation and with associated mild basilar effusion. Slightly more consolidated appearance in the right lung base than prior exam, otherwise. Continued follow-up suggested. Chest/Abdomen/Pelvis CT 06/26/22 21:09 IMPRESSION: 1. There is no evidence for pulmonary emboli. 2. There are small bilateral pleural effusions. 3. Strandy and patchy opacities and some consolidation is seen superimposed over the pleural effusions and present within the right middle lobe and lingula possibly representing atelectasis although pneumonia cannot be excluded. 4. Mildly prominent pulmonary vasculature and some ground-glass opacities are seen in the lower hemithoraces, findings that could represent mild pulmonary edema. 5. There is a background of severe centrilobular emphysema, bronchiectasis and pulmonary fibrosis. IMPRESSION: 1. There is a small volume of ascites present. 2. Subtle increased density within the gallbladder lumen may represent gallbladder sludge. There is no findings to suggest cholecystitis however. 3. Two benign appearing cysts are seen in the left kidney, the largest measuring 2.8 cm. 4. Bilateral nonobstructing renal calculi 5. Diverticulosis, most numerous within the sigmoid colon. There are no findings to suggest diverticulitis. 6. Left inguinal hernia containing fat and fluid. 7. There is no evidence for occlusion, stenosis, aneurysmal dilatation or extravasation the visualized arteries of the abdomen and pelvis. COMMENTS: Consistent with the [employer] [employer]'s Incidental Findings Committee white paper (J Am Janel Radiol 2018): Any incidental renal lesion less than 1 cm or classified as too small to characterize, or any incidental cystic renal lesion characterized as simple-appearing, is likely benign. No follow-up imaging is recommended for these lesions per consensus recommendations based on imaging criteria. Abdomen Ultrasound 06/27/22 06:57 IMPRESSION: Minimal ascites. Insufficient for paracentesis. Laboratory Results WBC 12.8 10^3/uL (4.0-10.0) H 07/02/22 01:55 RBC 4.28 10^6/uL (4.1-5.3) 07/02/22 01:55 Hgb 11.6 g/dL (11.7-16.6) L 07/02/22 01:55 Hct 35.8 % (42.0-52.0) L 07/02/22 01:55 MCV 83.6 fl (80-94) 07/02/22 01:55 MCH 27.1 pg (28.0-34.0) L 07/02/22 01:55 MCHC 32.4 g/dL (30.0-36.0) 07/02/22 01:55 RDW 16.6 % (12.1-15.1) H 07/02/22 01:55 Plt Count 249 10^3/cmm (130-400) 07/02/22 01:55 MPV 10.8 fL (7.4-10.4) H 07/02/22 01:55 Neut % (Auto) 85.6 % 07/02/22 01:55 Lymph % (Auto) 8.0 % 07/02/22 01:55 [place] % (Auto) 5.1 % 07/02/22 01:55 Eos % (Auto) 0.2 % 07/02/22 01:55 Baso % (Auto) 0.2 % 07/02/22 01:55 Neut # (Auto) 10.98 10^3/uL (1.8-7.7) H 07/02/22 01:55 Lymph # (Auto) 1.0 10^3/uL (0.8-4.8) 07/02/22 01:55 [place] # (Auto) 0.7 10^3/uL (0.2-0.9) 07/02/22 01:55 Eos # (Auto) 0.0 10^3/uL (0.0-0.8) 07/02/22 01:55 Baso # (Auto) 0.0 10^3/uL (0.0-0.1) 07/02/22 01:55 Nucleated RBC % (auto) 0 % 07/02/22 01:55 Nucleated RBCs # 0.0 /100WBC 07/02/22 01:55 PT 22.30 SECONDS (12.1-14.9) H 06/30/22 04:24 INR 1.92 (0.8-1.2) H 06/30/22 04:24 Sodium 134 mmol/L (136-145) L 07/02/22 01:55 Potassium 4.3 mmol/L (3.5-5.1) 07/02/22 01:55 Chloride 82 mmol/L (98-107) L 07/02/22 01:55 Carbon Dioxide 36 mmol/L (22-29) H 07/02/22 01:55 Anion Gap 20.3 (5-19) H 07/02/22 01:55 BUN 72 mg/dL (8-23) H 07/02/22 01:55 Creatinine 1.3 mg/dL (0.7-1.2) H 07/02/22 01:55 GFR Calculation 54.9 mL/min (90-130) L 07/02/22 01:55 Glucose 168 mg/dL (65-115) H 07/02/22 01:55 POC Glucose 139 mg/dL (70-110) H 07/02/22 06:01 Estimat Average Glucose 200 06/27/22 00:09 Hemoglobin A1c 8.6 % (4.0-6.0) H 06/27/22 00:09 Calculated Osmolality 303 mOsm/kg (285-295) H 07/02/22 01:55 Lactic Acid 3.6 mmol/L (0.5-2.2) H 06/27/22 00:07 Lactic Acid (Sepsis) 3.7 mmol/L (0.5-2.2) H 06/27/22 06:11 Lactate 2.2 mmol/L (0.5-2.2) 06/29/22 04:09 Calcium 10.2 mg/dL (8.5-10.5) 07/02/22 01:55 Magnesium 2.3 mg/dL (1.7-2.3) 07/02/22 01:55 Ferritin 433 ng/mL (30-400) H 06/27/22 00:07 Total Bilirubin 1.1 mg/dL (0.15-1.2) 07/02/22 01:55 GGT 430 U/L (8-61) H 06/27/22 00:07 AST 96 U/L (0-40) H 07/02/22 01:55 ALT 95 U/L (0-41) H 07/02/22 01:55 Alkaline Phosphatase 151 U/L (40-130) H 07/02/22 01:55 Troponin T Baseline 28 ng/L (0-15) H 06/26/22 15:52 Troponin T 120 Minute 27.10 ng/L (0-15) H 06/26/22 18:23 Delta Troponin T -0.90 ABS# (0-10) L 06/26/22 18:23 Troponin T Hi Sens 6Hr 22.80 ng/L (0-15) H 06/27/22 00:07 Troponin T Hi Sens 6Hr Delta -5.20 ng/L (0-12) L 06/27/22 00:07 C-Reactive Protein 124.6 mg/L (0.0-4.9) H 06/27/22 00:07 NT-Pro-B Natriuret Pep 4929 pg/mL (0-125) H 07/02/22 01:55 Total Protein 7.5 g/dL (6.6-8.7) 07/02/22 01:55 Albumin 4.9 g/dL (3.5-5.2) 07/02/22 01:55 Globulin 2.6 g/dL (1.3-4.6) 07/02/22 01:55 Lipase 23 U/L (13-60) 06/27/22 00:07 Procalcitonin 0.34 ng/mL (0-0.5) 06/27/22 00:07 TSH 1.76 uIU/mL (0.27-4.20) 06/27/22 00:07 Acetaminophen < 5.0 ug/mL (10-30) L 06/26/22 15:52 SEVERIANO IFA Animal Tis Res Negative (NEGATIVE) 06/27/22 00:07 MYRNA-1 Antibody <1.0 neg AI (<1.0 NEG) 06/27/22 00:07 SS-A Antibody <1.0 neg AI (<1.0 NEG) 06/27/22 00:07 SS-B Antibody <1.0 neg AI (<1.0 NEG) 06/27/22 00:07 Sm ([place]) Antibody <1.0 neg AI (<1.0 NEG) 06/27/22 00:07 INST[employer] Antibody <1.0 neg AI (<1.0 NEG) 06/27/22 00:07 Scl-70 Antibody <1.0 neg AI (<1.0 NEG) 06/27/22 00:07 Anti-ds DNA IgG ([place]) Negative (NEGATIVE) 06/27/22 00:07 Centromere B Antibody <1.0 neg AI (<1.0 NEG) 06/27/22 00:07 Thyroid Peroxidase Ab 1 IU/mL (<9) 06/27/22 00:07 Complement C3c 135 mg/dL (82-185) 06/27/22 00:07 Complement C4c 11 mg/dL (15-53) L 06/27/22 00:07 CH50 Classical Pathway 41 U/mL (31-60) 06/27/22 00:07 Coronavirus 229E (PCR) Cancelled 06/27/22 05:50 Hepatitis A IgM Ab Non-reactive (Nonreactive) 06/26/22 15:52 Hep Bs Antigen Non-reactive (Nonreactive) 06/26/22 15:52 Hep B Core IgM Ab Non-reactive (Nonreactive) 06/26/22 15:52 Hepatitis C Antibody Reactive (Nonreactive) H 06/26/22 15:52 HCV RNA (PCR) IUs/ml <1.18 not detected Log IU/mL (NOT DETECTED) 06/27/22 00:07 HCV RNA (PCR) IU log10 <15 not detected IU/mL (NOT DETECTED) 06/27/22 00:07 Influenza Type A Ag negative (Negative) 06/27/22 05:55 Influenza Type B Ag negative (Negative) 06/27/22 05:55 SARS-CoV-2 (PCR) Cancelled 06/27/22 05:50 Mitochondrial DNA Scrn Negative (NEGATIVE) 06/27/22 00:07 Vitals Last Vital Signs Temp 97.8 F 07/02/22 07:24 Pulse 68 07/02/22 07:24 Resp 15 07/02/22 07:24 BP 118/63 07/02/22 07:24 Pulse Ox 90 07/02/22 07:24 O2 Del Method 07/02/22 07:24 O2 Flow Rate 5 07/02/22 08:00 Discharge Plan Discharge Patient Disposition: Home Condition: Stable Prescriptions: New insulin glargine [Lantus Solostar U-100 Insulin] 100 unit/mL (3 mL) insulin pen 10 unit SUBCUT Q12H Qty: 15 0RF Rx Instructions: 10 units QAM and 10 units QPM bumetanide 1 mg tablet 1 mg PO DAILY 30 Days Qty: 30 0RF spironolactone 25 mg Tablet 50 mg PO Q24H 30 Days Qty: 60 0RF doxycycline monohydrate 100 mg Tablet 100 mg PO BID 3 Days Qty: 6 0RF insulin aspart U-100 [Novolog FlexPen U-100 Insulin] 100 unit/mL (3 mL) insulin pen See Rx Instructions .ROUTE .COMPLEX Qty: 45 0RF Rx Instructions: Inject, subcut, 3 times daily, after meals, based on sliding scale provided potassium chloride [Klor-Con M20] 20 mEq tablet,ER particles/crystals 20 meq PO DAILY 30 Days Qty: 30 0RF Continued empagliflozin 25 mg tablet 25 mg PO DAILY escitalopram oxalate 20 mg tablet 10 mg PO DAILY [id number] 100-62.5-25 mcg blister with device 1 inh inhalation DAILY formoterol fumarate [Perforomist] 20 mcg/2 mL solution for nebulization 2 ml inhalation BID Qty: 120 5RF Yupelri 175 mcg/3 mL solution for nebulization 175 mcg inhalation DAILY Qty: 90 5RF amiodarone 200 mg tablet 400 mg PO DAILY Qty: 180 3RF Rx Instructions: Dose reduced atorvastatin 20 mg tablet 20 mg PO DAILY Qty: 90 3RF budesonide [Pulmicort] 0.5 mg/2 mL suspension for nebulization 0.5 mg inhalation BID Qty: 120 5RF isosorbide mononitrate 30 mg tablet extended release 24 hr 30 mg PO DAILY Qty: 90 1RF Rx Instructions: Start taking 1 tab daily, gradually increasing to 2 tabs daily magnesium L-lactate [Magtab] 84 mg tablet extended release 84 mg PO BID Qty: 180 3RF carvedilol 25 mg tablet 12.5 mg PO BID Qty: 60 5RF Hold Instructions: see pcp Rx Instructions: must administer with a meal/food tamsulosin 0.4 mg Capsule 0.4 mg PO BEDTIME Eliquis 5 mg Tablet 5 mg PO BID acetaminophen 325 mg Tablet 650 mg PO Q6H PRN (Reason: Mild/Mod Pain Or Temp >/= 101) Qty: 30 0RF alprazolam 0.5 mg Tablet 0.5 - 1 mg PO BID PRN (Reason: Anxiety) Discontinued glipizide 10 mg tablet extended release 24hr 10 mg PO BID ibuprofen 800 mg tablet 800 mg PO Q8H PRN (Reason: pain) Qty: 30 0RF Lasix 20 mg tablet 40 mg PO DAILY Rx Instructions: Take 2 tabs daily x 5 days, then 1 tab daily thereafter potassium chloride [Klor-Con 8] 8 mEq tablet extended release 8 meq PO DAILY Qty: 90 3RF amoxicillin-pot clavulanate 875-125 mg tablet 1 tab PO BID 7 Days Qty: 14 0RF prednisone 10 mg tablet See Rx Instructions .ROUTE .COMPLEX Qty: 38 0RF Rx Instructions: 40 mg BID x1d 40 mg QD x 3d 30 mg x3d 20 mg x3d 10 mg x3d Discharge Orders: Discharge Order (Routine); Ordered 07/02/22 Ordered By: Jameson Lima Referrals: Danielle Hurt APN [Primary Care Provider] - (Please call Monday and schedule a follow up appointment wi Danielle Hurt.) Discharge Diet: Cardiac Discharge Activity: Resume usual activity Patient Instructions: Opioid Safety Activity Restrictions/Additional Instructions: - Please start Bumex 1 mg daily with potassium replacement tomorrow -Please limit fluid intake to 1500 mL a day -If you develop worsening shortness of breath or edema go to the emergency room -Take antibiotics as prescribed -For your type 2 diabetes mellitus, elevated blood sugars -Take Lantus 10 units twice daily -Monitor blood sugars closely, monitor for low blood sugars -Inject?humalog 3 times daily, after meals, based on sliding provided below -Insulin sliding fingerstick? Insulin 141-180?2 units/sq 181-220?4 units/sq 221-260?6 units/sq 261-300?8 units/sq 301-350 10 units/sq 351-400 12 units/sq > 400? 14 units/sq ? -Please monitor your blood sugars closely -Monitor your blood sugars 3 times daily as after meals -Please record your blood sugars, and a blood sugar log -For your NovoLog -Please inject blood sugar after meals based on sliding scale provided -Do not inject insulin if you do not eat as hypoglycemia kills -This is a NovoLog sliding scale -Insulin sliding ?fingerstick? Insulin ?141-180?2 units/sq 181-220?4 units/sq ?221-260?8 units/sq ?261-300?10 units/sq ?301-350 12 units/sq ?351-400 14 units/sq 401-450?16 units/sq 451-500 18units/sq -If your blood sugar is greater than 500 go to the emergency room -If your blood sugar is less than 60 or at anytime you feel lightheaded or dizzy or diaphoretic or have chest palpitations check your blood sugar, and eat a hard candy or drink orange juice and go immediately to the emergency room -Remember hypoglycemia kills, so if his blood sugar is less than 60 we have to increase it by taking in a sugary meal such as a hard candy or orange juice and go to the emergency room -If you have any questions please call us where here to help Discharge Attestations Time Spent in Discharge Care*: greater than 30 min Quality Metrics Clinical Quality Measures [ No reported AMI, CVA or VTE this stay] Coding Level of Care Code Acute Chg FW DC note Diagnoses Acute on chronic congestive heart failure I50.9 COPD exacerbation J44.1 Recurrent pneumonia J18.9 NSTEMI (non-ST elevated myocardial infarction) I21.4 Abdominal distention R14.0 Atrial fibrillation I48.91 Hypertriglyceridemia E78.1 Hyperlipidemia E78.2 Hyperlipidemia type: mixed hyperlipidemia Diabetes mellitus E11.9 Hypertension I10 Goals of care, counseling/discussion Z71.89 Physical deconditioning R53.81 Hypoalbuminemia E88.09 Transaminitis R74.01 Hyponatremia E87.1 Pulmonary hypertension I27.20
[2022-07-02 11:26] VITALS: BP 117/65; PULSE 73; RESP 15; TEMP 36.6; O2SAT 92
[2022-07-02 11:27] LABS: Glucose Point of Care 257 mg/dL (70-110)
[2022-07-02] MEDS: spironolactone 25 mg Tablet 50 MG PO (11:40)
[2022-07-02 12:03] VITALS: BP 117/65; PULSE 73; RESP 15; TEMP 36.6; O2SAT 92
--- NOTE | 2022-07-02 12:06 | PC.NURSE ---
patient and family verbalized understanding of discharge instructions, home medications, and follow up appointment.
[2023-03-01 13:12] LABS: HEP C RNA Viral Load Quant <15 NOT DETECTED
[2023-03-01 13:13] LABS: HEP C RNA Viral Load Quant <1.18 NOT DETECTED
== END 2022-07-02 11:55 | disposition home or self-care (01) | DRG 280 ==
LOC: ER 21:47 → MEDSURG 22:41
PROVIDERS: Student in an Organized Health Care Education/Training Program; Admitting Provider Family Medicine; Emergency Provider Emergency Medicine; PCP Nurse Practitioner Family; Visit Provider Family Medicine
DX: I11.0 Hypertensive heart disease with heart failure (principal); I50.23 Acute on chronic systolic (congestive) heart failure; I21.4 Non-ST elevation (NSTEMI) myocardial infarction; J18.9 Pneumonia, unspecified organism; J96.11 Chronic respiratory failure with hypoxia; E87.1 Hypo-osmolality and hyponatremia; J43.2 Centrilobular emphysema; I48.91 Unspecified atrial fibrillation; E78.2 Mixed hyperlipidemia; E11.65 Type 2 diabetes mellitus with hyperglycemia; T38.0X5A Adverse effect of glucocorticoids and synthetic analogues, initial encounter; I27.20 Pulmonary hypertension, unspecified; E78.1 Pure hyperglyceridemia; E88.09 Other disorders of plasma-protein metabolism, not elsewhere classified; K74.60 Unspecified cirrhosis of liver; R53.81 Other malaise; K42.9 Umbilical hernia without obstruction or gangrene; R74.01 Elevation of levels of liver transaminase levels; Z99.81 Dependence on supplemental oxygen; Z87.01 Personal history of pneumonia (recurrent); Z79.01 Long term (current) use of anticoagulants; Z87.891 Personal history of nicotine dependence; Z86.19 Personal history of other infectious and parasitic diseases; Z79.84 Long term (current) use of oral hypoglycemic drugs; Z79.52 Long term (current) use of systemic steroids
CPT/HCPCS: 36415; 36416; 51702; 71045; 71275; 74177; 76705; 80048; 80053; 80074; 80307; 82728; 82962; 82977; 83036; 83516; 83605; 83690; 83735; 83880; 84145; 84443; 84484; 85025; 85610; 86140; 86160; 86162; 86235; 86255; 86376; 86403; 87040; 87522; 87635; 87804; 93005; 94640; 94664; 96372; 97110; 97161; 97165; 97530; C9113; J0696; J1815; J1940; J2270; J2405; J2920; J2930; J3490; J7512; J7613; J7644; P9046; Q9967